=== PATIENT | female | born 1940 | race Caucasian/White ===

== ENCOUNTER → 2016-03-02 | Outpatient (CLI) | payer OTHER ==
[~2016-03-02] MED LIST: ALBU1AER9 INH; ALLO300T2 PO; ASCO500T16 PO; ASPI81TA21 PO; ATEN-173 PO; CALC600T PO; FURO20TA PO; LEVO175T23 PO; MULT-506 PO
--- NOTE | 2016-03-03 12:41 | MAMMOGRAPHY REPORT ---
BILATERAL DIGITAL SCREENING MAMMOGRAM WITH CAD: 03/02/2016 CLINICAL HISTORY: Routine screening. Patient has no complaints. TECHNIQUE: Bilateral CC and MLO views were obtained. Current study was also evaluated with a Comput er Aided Detection (CAD) system. COMPARISON: Comparison is made to exams dated: 02/27/2014 mammogram, 01/12/2013 mammogram, 05/24/2012 m ammogram, 11/19/2011 mammogram, 05/05/2011 mammogram, and 04/30/2011 mammogram - [facility] enter. BREAST COMPOSITION: The tissue of both breasts is almost entirely fatty. FINDINGS: There are scattered stable benign rim calcifications in the breasts. No suspicious mass, architectural distortion or cluster of suspicious microcalcifications is seen. IMPRESSION: ACR BI-RADS CATEGORY 1: NEGATIVE There is no mammographic evidence of malignancy. A 1 year screening mammogram is recommended. The p atient will receive written notification of the results. Approximately 10% of breast cancers are not detected with mammography. A negative mammographic repor t should not delay biopsy if a clinically suggestive mass is present. Xochilt Christianson M.D. ay/:03/02/2016 15:39:56 Records Administrator: Coty Medrano, [facility] letter sent: Normal 1/2 BI-RADS Code: ACR BI-RADS Category 1: Negative
== END | disposition home or self-care (01) ==
LOC: C.MAMM 14:43
PROVIDERS: ATTEND Family Medicine
DX: Z12.31 Encounter for screening mammogram for malignant neoplasm of breast (principal)

== ENCOUNTER → 2017-03-04 | Outpatient (CLI) | payer OTHER ==
--- NOTE | 2017-03-05 15:08 | MAMMOGRAPHY REPORT ---
BILATERAL DIGITAL SCREENING MAMMOGRAM TOMOSYNTHESIS WITH CAD: 03/04/2017 CLINICAL HISTORY: Routine screening. Patient has no complaints. TECHNIQUE: Breast tomosynthesis in addition to standard 2D mammography was performed. Current study was also evaluated with a Computer Aided Detection (CAD) system. COMPARISON: Comparison is made to exams dated: 03/02/2016 mammogram, 02/27/2014 mammogram, 04/30/2011 mamm ogram, 04/22/2010 mammogram, 03/18/2009 mammogram - [facility], and 07/26/2007. BREAST COMPOSITION: The tissue of both breasts is almost entirely fatty. FINDINGS: No suspicious masses, calcifications, or areas of architectural distortion are noted in ei ther breast. There has been no significant interval change compared to prior exams. Scattered bilater al benign-appearing calcifications are not significantly changed. IMPRESSION: ACR BI-RADS CATEGORY 2: BENIGN There is no mammographic evidence of malignancy. A 1 year screening mammogram is recommended. The pa tient will receive written notification of the results. Approximately 10% of breast cancers are not detected with mammography. A negative mammographic report should not delay biopsy if a clinically suggestive mass is present. Dina Guzman M.D. /:03/04/2017 15:23:56 Vulcan Crewmember: Vivian WELLER(Elisa)(M), [facility] letter sent: Normal 1/2 BI-RADS Code: ACR BI-RADS Category 2: Benign
== END | disposition home or self-care (01) ==
LOC: C.MAMM 14:53
PROVIDERS: ATTEND Family Medicine
DX: Z12.31 Encounter for screening mammogram for malignant neoplasm of breast (principal)

== ENCOUNTER 2023-04-10 19:23 | Observation (INO) ==
--- OUTSIDE RECORDS SUMMARY | 2023-04-10 19:35 | External Medical Summary | Summary of Care ---
Author Name Unknown Organization [facility] Address [address] [place] [address] Phone [phone] Care Team Providers Care Wildlife Ecology Professor Name Role Phone Wade Collado MD Primary Care Provider [phone] Reason for Visit * Reason Onset Date Comments Medication Problem 03/11/2023 Medication re fusal Encounter Details Date Type Department Care Team (Late st Contact Info) Description 03/11/2023 Refill [facility] [address] [place] [address] Wade Collado MD [address] [place] [address] Hypothyroidism Allergies Active Allergy Reactions Criticality Noted Date Comments Shine Inhibitors 09/22/2005 cough Penicillins 11/19/1998 rash Statins 11/20/2010 hives documented as of this encounter (statuses as of 03/12/2023) Medications Medication Sig Dispensed Refills Start Date End Date Status PRESERVISION AREDS 2 PO CAPS one cap daily 0 Active Atenolol 25 MG Oral Tablet (Tenormin) take 1 tablet by mouth daily 90 Tablet 3 03/12/2023 Active Furosemide 20 MG Oral Tablet (Lasix) take 1 tablet by mouth daily if needed for SWELLING fluid retention or WEIGHT GAIN 90 Tablet 3 03/12/2023 Active Levothyroxine Sodium 175 MCG Oral Tablet (Levoxyl)Indicat ions:Hypothyroid ism take 1 tablet by mouth daily AT LEAST 30 MINUTES BEFORE BREAKFAST OR OTHER MEDICATIONS 90 Tablet 3 03/12/2023 Active Potassium Chloride ER 10 MEQ Oral Capsule Extended Release take 1 capsule by mouth daily with EACH DOSE OF FUROSEMIDE 90 Capsule 3 03/12/2023 Active Atenolol 25 MG Oral Tablet (Tenormin) take 1 tablet by mouth daily 90 Tablet 3 12/20/2022 4 Discontinue d(Refill) Levothyroxine Sodium 175 MCG Oral Tablet (Levoxyl)Indicat ions:Hypothyroid ism take 1 tablet by mouth daily AT LEAST 30 MINUTES BEFORE BREAKFAST OR OTHER MEDICATIONS 90 Tablet 3 12/20/2022 4 Discontinue d(Refill) Potassium Chloride ER 10 MEQ Oral Capsule Extended Release take 1 capsule by mouth daily with EACH DOSE OF FUROSEMIDE 90 Capsule 3 01/06/2023 4 Discontinue d(Refill) Furosemide 20 MG Oral Tablet (Lasix) take 1 tablet by mouth daily if needed for SWELLING fluid retention or WEIGHT GAIN 90 Tablet 3 01/06/2023 4 Discontinue d(Refill) documented as of this encounter (statuses as of 03/12/2023) Active Problems Problem Noted Date Diagnosed Date Body mass index (BMI) of 50.0 to 59.9 in adult 0 11/02/2022 Overview: Per Obesity protocol Stage 3a chronic kidney disease 01/01/2020 Overview: Per CKD protocol HTN, GOAL BELOW 140/90 01/14/2009 Overview: Modified per HTN protocol #16. Hypothyroidism documented as of this encounter (statuses as of 03/12/2023) Resolved Problems Problem Noted Date Diagnosed Date Resolved Date Kidney disease, chronic, sta ge III (GFR 30-59 ml/min) 03/02/2016 01/04/2020 Overview: Per CKD protocol #1 Adenomatous colon polyp 07/25/201203/2018 Obesity, morbid (more than 1 00 lbs over ideal weight or BMI > 40) 05/21/2011 11/05/2022 Overview: Per Obesity protocol Obesity, morbid (more than 1 00 lbs over ideal weight or BMI > 40) 05/21/2009 05/21/2011 Overview: Per Obesity Taxonomy ICD-10 update of inactive term Gouty arthropathy 12/06/2008 02/23/2018 Overview: ICD-9 Code Update ICD-10 update of inactive term Benign neoplasm of colon 12/22/200703/2018 Overview: serrated adenomatous/repeat colonoscopy in 3 yrs ADVANCE DIRECTIVE INFORMATION 10/16/2004 02/23/2018 Overview: No, Advance Directive brochure given to patient at prior appointment. Dyslipidemia, goal to be determined 04/16/2004 01/25/2013 Gouty arthropathy 10/17/2002 12/06/2008 Overview: ICD-9 Code Update ICD-10 update of inactive term OBESITY, UNSPECIFIED 01/19/2001 010 Overview: Per Obesity Taxonomy HYPERTENSION NOS 01/14/2009 Overview: Modified per HTN protocol #16. Edema 02/23/2018 documented as of this encounter (statuses as of 03/12/2023) Immunizations Name Administration Dates Next Due COVID-19 mRNA, LNP-s, No Pre serve, 2-Dose Series ([employer]) 11/21/2020,04/18/2020,03/28/2020 Pneumococcal Conjugate Vacc, 13 Valent (Prevnar) 08/06/2015 Pneumococcal Polysaccharide PPV23 (Pneumovax) 03/18/2009 Seasonal Influenza, PF, 6 M & above, IM , (FluLaval or Fluzone) 02/24/2019,12/17/2017,04/01/2017 Seasonal Influenza, Quadriva lent Hd (Fluzone Hd) 11/20/2020 Seasonal Influenza, Quadriva lent, No Preserve, IM 02/11/2016,02/04/2015 Seasonal Influenza, Split, I IV3, With Preserve, Inj 01/29/2014,12/15/2012,12/31/2011,01/12,12/17/2009,12/04/2008,01/09/2008 ,01/04/2006 TD - Tetanus/Diptheria (ADULT) 04/01/2005 TDAP (age 10 and older)(Boostrix) 02/11/2016 Varicella Zoster Vaccine (Adult) 01/23/2013 documented as of this encounter Social History Tobacco Use Types Packs/Day Years Used Date Smoking Tobacco: Never Smokeless Tobacco: Never Alcohol Use Standard Drinks/Week Comments Yes 0 (1 standard drink = 0.6 oz pur e alcohol) occasionally wine PHQ-2 Answer Date Recorded PHQ Adult Total Score 0 10/22/2021 Hunger Vital Sign Answer Date Recorded Within the past 12 months, y ou worried that your food would run out before you got the money to buy more. Never true 10/23/19 22 Within the past 12 months, t he food you bought just didn't last and you didn't have money to get more. Never true 10/22/2021 Sex and Gender Information Value Date Recorded Sex Assigned at Not on file Gender Identity Not on file Sexual Orientation Not on file Job Start Date Occupation Industry Not on file Not on file Not on file documented as of this encounter Miscellaneous Notes * Telephone Encounter - Wade Collado MD - 03/12/2023 4:18 PM ESTSigned Prescriptions: Disp Refills Atenolol 25 MG Oral Tablet (Tenormin) 90 Tab*3 Sig: take 1 tablet by mouth dailyAuthorizing Provider: WADE COLLADO Furosemide 20 MG Oral Tablet (Lasix) 90 Tab*3 Sig: take 1 tablet by mouth daily if needed for SWELLING fluid retention or WEIGHT GAINAuthorizing Provider: WADE COLLADO Levothyroxine Sodium 175 MCG Oral Tablet (*90 Tab*3Sig: take 1 tablet by mouth daily AT LEAST 30 MINUTES BEFORE BREAKFAST OR OTHER MEDICATIONSAuthorizing Provider: WADE COLLADO Potassium Chloride ER 10 MEQ Oral Capsule *90 Cap*3 Sig: take 1 capsule by mouth daily with EACH DOSE OF FUROSEMIDEAuthorizing Provider: WADE COLLADO * Telephone Encounter - Adrianna Reyes LPN - 03/12/2023 1:42 PM EST [facility] closed so scripts were transferred to [facility]. Pt is going to use [facility] from now on Needs scripts sent to [facility] * Telephone Encounter - Wade Collado MD - 03/12/2023 12:54 PM EST Refused by pharmacy team. I am not sure why - but it looks like they were all filled this past November and December and enough was given for a year. Perhaps check with pt and/or pharmacy if a refill is really needed and send back to me if so. * Telephone Encounter - Aranza Razo OSA - 03/11/2023 3:48 PM EST Patient would like to speak to Dr. Garner , patient was told her medications were refused her medication because she needed to speak to the doctor first , patient is not sure why , please contact [phone] documented in this encounter Plan of Treatment Upcoming Encounters Date Type Department Care Team (Late st Contact Info) Description 10/22/2023 10:40 AM EDT Office Visit [facility] [address] [place] [address] Wade Collado MD [address] [place] [address] Health Maintenance Due Date Last Done Comments Zoster Vaccines (2 of 3) 03/20/2013 01/23/2013 DXA Scan 11/04/2019 11/03/2012, 06/22, 07/07/2005, Additional history exists Albumin/Creatinine Ratio 10/16/2022 022, 02/23/2018, 08/11/2007 Depression Screening 10/22/2022 10/22/2021 COVID-19 Vaccine ( season) 2022 11/21/2020, 04/18/2020, 03/28/2020 Influenza Vaccine (FLU shot) (#1) 2022 11/20/2020, 02/24/2019, 02/24/2019, Additional history exists GFR 04/22/2023 10/20/2022, 09/23, 07/09/2020, Additional history exists CKD HGB USE SMARTSET 51441 10/21/202310/20, 10/15/2021, 07/09/2020, Additional history exists CKD PHOS USE SMARTSET 40651 10/21/202309/23, 10/15/2021, 07/09/2020, Additional history exists TSH 10/21/2023 10/20/2022, 09/23, 07/09/2020, Additional history exists DTaP,Tdap,and Td Vaccines (2 - Td or Tdap) 02/10/2026 02/11/2016, 04/01/2005, 06/22/1994 Hepatitis B Completed 07/06/1985, 07/1985, 12/26/1984 Pneumococcal Vaccine: 65+ Years Completed 08/06/2015, 03/18/2009, 04/16/2004, Additional history exists GARDASIL-HPV IMMUNIZATION SERIES Aged Out No longer eligible based on patient's age to complete this topic MENINGOCOCCAL (MENACTRA/MENVEO) Aged Out No longer eligible based on patient's age to complete this topic documented as of this encounter Medical Devices Not on filedocumented as of this encounter Visit Diagnoses Diagnosis Hypothyroidism Unspecified hypothyroidism documented in this encounter Advance Directives Documents on File Type Date Recorded Patient Ui Ux Web Developer Expl anation Advance Directives and Living Will 06/09/2012 ADVANCE DIRECTIVE MEDICAL POWER OF LINE UP WORKER Advance Directives and Living Will 04/13/2008 LIVING WILL Care Teams Wildlife Ecology Professor Relationship Specialty Start Date End Date Wade Collado MD [address] [place] [address] PCP - General 04/20/02 documented as of this encounter
--- OUTSIDE RECORDS SUMMARY | 2023-04-10 19:35 | External Medical Summary | Summary of Care ---
Author Name Unknown Organization [facility] Address [address] [place] [address] Phone [phone] Care Team Providers Care Aerodynamics Professor Name Role Phone Juan Torres MD Primary Care Provider [phone]- [phone] Reason for Visit * Reason Comments eRx-Medication Refill Encounter Details Date Type Department Care Team (Late st Contact Info) Description 03/10/2023 Refill [facility] [address] [place] [address] Juan oTrres MD [address] [place] [address] Hypothyroidism Allergies Active Allergy Reactions Criticality Noted Date Comments Shine Inhibitors 09/22/2005 cough Penicillins 11/19/1998 rash Statins 11/20/2010 hives documented as of this encounter (statuses as of 03/11/2023) Medications Medication Sig Dispensed Refills Start Date End Date Status PRESERVISION AREDS 2 PO CAPS one cap daily 0 Active Atenolol 25 MG Oral Tablet (Tenormin) take 1 tablet by mouth daily 90 Tablet 3 12/20/2022 Active Levothyroxine Sodium 175 MCG Oral Tablet (Levoxyl)Indicatio ns:Hypothyroidism take 1 tablet by mouth daily AT LEAST 30 MINUTES BEFORE BREAKFAST OR OTHER MEDICATIONS 90 Tablet 3 12/20/2022 Active Potassium Chloride ER 10 MEQ Oral Capsule Extended Release take 1 capsule by mouth daily with EACH DOSE OF FUROSEMIDE 90 Capsule 3 01/06/2023 Active Furosemide 20 MG Oral Tablet (Lasix) take 1 tablet by mouth daily if needed for SWELLING fluid retention or WEIGHT GAIN 90 Tablet 3 01/06/2023 Active documented as of this encounter (statuses as of 03/11/2023) Active Problems Problem Noted Date Diagnosed Date Body mass index (BMI) of 50.0 to 59.9 in adult 0 11/02/2022 Overview: Per Obesity protocol Stage 3a chronic kidney disease 01/01/2020 Overview: Per CKD protocol HTN, GOAL BELOW 140/90 01/14/2009 Overview: Modified per HTN protocol #16. Hypothyroidism documented as of this encounter (statuses as of 03/11/2023) Resolved Problems Problem Noted Date Diagnosed Date [...] as of this encounter (statuses as of 03/11/2023) Immunizations Name Administration Dates Next Due COVID-19 mRNA, LNP-s, No Pre serve, 2-Dose Series (Pfizer) 11/21/2020,04/18/2020,03/28/2020 Pneumococcal Conjugate Vacc, 13 Valent (Prevnar) [...] encounter Miscellaneous Notes * Telephone Encounter - Milan Wilkes [facility] - 03/11/2023 3:17 PM EST Refused Prescriptions: Disp Refills Potassium Chloride ER 10 MEQ Oral Capsule *360 Ca*0 Sig: TAKE 1CAPSULE BY MOUTH DAILY WITH EACH DOSE OF FUROSEMIDERefused By: MILAN WILKES for Refusal: Patient Should Contact Provider First Furosemide 20 MG Oral Tablet (Lasix) 360 Ta*0 Sig: TAKE 1 TABLET BY MOUTH DAILY IF NEEDED FOR SWELLING FLUID RETENTION OR WEIGHT GAINRefused By: MILAN WILKES for Refusal: Patient Should Contact Provider First LevothyroxineSodium 175 MCG Oral Tablet (*270 Ta*0 Sig: TAKE 1 TABLET BY MOUTH DAILY AT LEAST 30 MINUTES BEFORE BREAKFAST OR OTHER MEDICATIONSRefused By: MILAN WILKES for Refusal: Patient Should Contact Provider First Atenolol 25 MG Oral Tablet (Tenormin) 270 Ta*0 Sig: TAKE 1 TABLET BY MOUTH DAILYRefused By: MILAN WILKES for Refusal: Patient Should Contact Provider First documented in this encounter Plan of Treatment Upcoming Encounters Date Type Department Care Team (Late st Contact Info) Description 10/22/2023 10:40 AM EDT Office Visit [facility] [address] [place] [address] Juan Torres MD [address] [address] Health Maintenance Due Date Last Done [...] Additional history exists CKD HGB USE SMARTSET 76814 10/21/202310/20, 10/15/2021, 07/09/2020, Additional history exists CKD PHOS USE SMARTSET 41096 10/21/202309/23, 10/15/2021, 07/09/2020, Additional history exists TSH [...] Documents on File Type Date Recorded Patient Home Office Claims Examiner Expl anation Advance Directives and Living Will 06/09/2012 ADVANCE DIRECTIVE MEDICAL POWER OF FIELD RETURN REPAIRER Advance Directives and Living Will 04/13/2008 LIVING WILL Care Teams Aerodynamics Professor Relationship Specialty Start Date End Date Juan Torres MD [address] [place] [address] PCP - General 04/20/02 documented as of this encounter
--- OUTSIDE RECORDS SUMMARY | 2023-04-10 19:35 | External Medical Summary | Summary of Care ---
Author Name Unknown Organization [facility] Address [address] [place] [address] Phone [phone] Care Team Providers Care Powder Coat Painter Name Role Phone Wade Collado MD Primary Care Provider +1- [phone] Reason for Visit * Reason Comments eRx-Medication Refill Encounter Details Date Type Department Care Team (Late st Contact Info) Description 01/05/2023 Refill [facility] [address] [place] [address] Wade Collado MD [address] [place] [address] Allergies Active Allergy Reactions Criticality Noted Date Comments Shine Inhibitors 09/22/2005 cough Penicillins 11/19/1998 rash Statins 11/20/2010 hives documented as of this encounter (statuses as of 01/06/2023) Medications Medication Sig Dispensed Refills Start Date End Date Status PRESERVISION AREDS 2 PO CAPS one cap daily 0 Active Atenolol 25 MG Oral Tablet (Tenormin) take 1 tablet by mouth daily 90 Tablet 3 12/20/2022 Active Levothyroxine Sodium 175 MCG Oral Tablet (Levoxyl)Indica tions:Hypothyro idism take 1 tablet by mouth daily AT [...] WEIGHT GAIN 90 Tablet 3 01/06/2023 Active Potassium Chloride ER 10 MEQ Oral Capsule Extended Release Take 1 capsule daily with each dose of furosemide 90 Capsule 3 11/18/2021 3 Discontinued Furosemide 20 MG Oral Tablet (Lasix) Take by mouth 1 Tablet daily as needed (swelling). for fluid accumulation or weight gain 90 Tablet 3 11/18/2021 3 Discontinued documented as of this encounter (statuses as of 01/06/2023) Active Problems Problem Noted Date Diagnosed Date Body mass index (BMI) of 50.0 to 59.9 in adult 0 11/02/2022 Overview: Per Obesity protocol Stage 3a chronic kidney disease 01/01/2020 Overview: Per CKD protocol HTN, GOAL BELOW 140/90 01/14/2009 Overview: Modified per HTN protocol #16. Hypothyroidism documented as of this encounter (statuses as of 01/06/2023) Resolved Problems Problem Noted Date Diagnosed Date [...] as of this encounter (statuses as of 01/06/2023) Immunizations Name Administration Dates Next Due COVID-19 mRNA, LNP-s, No Pre serve, 2-Dose Series (Be my eyes) 11/21/2020,04/18/2020,03/28/2020 Pneumococcal Conjugate Vacc, 13 Valent (Prevnar) 08/06/2015 Pneumococcal Polysaccharide PPV23 (Pneumovax) 03/18/2009 SEASONAL INFLUENZA, PF, 6 M & Above, IM , (FLULAVAL or FLUZONE) 02/24/2019,12/17/2017,04/01/2017 Seasonal Influenza, Quadriva lent Hd (Fluzone [...] encounter Miscellaneous Notes * Telephone Encounter - Ewa Gaspar [facility] - 01/06/2023 11:04 AM ESTSigned Prescriptions: Disp Refills Potassium Chloride ER 10 MEQ Oral Capsule *90 Cap*3 Sig: take 1 capsule by mouth daily with EACH DOSE OF FUROSEMIDEAuthorizing Provider: WADE COLLADOUser: EWA GASPAR Furosemide 20 MG Oral Tablet (Lasix) 90 Tab*3 Sig: take 1 tablet by mouth daily if needed for SWELLING fluid retention or WEIGHT GAINAuthorizing Provider: WADE COLLADO User: EWA GASPAR documented in this encounter Plan of Treatment Upcoming Encounters Date Type Department Care Team (Late st Contact Info) Description 10/22/2023 10:40 AM EDT Office Visit [facility] [address] [place] [address] Wade Collado MD [address] [facility] [place] [address] Health Maintenance Due Date Last Done [...] Additional history exists CKD HGB USE SMARTSET 76712 10/21/202310/20, 10/15/2021, 07/09/2020, Additional history exists CKD PHOS USE SMARTSET 29347 10/21/202309/23, 10/15/2021, 07/09/2020, Additional history exists TSH [...] Not on filedocumented as of this encounter Advance Directives Documents on File Type Date Recorded Patient Rack Maker Expl anation Advance Directives and Living Will 06/09/2012 ADVANCE DIRECTIVE MEDICAL POWER OF VEHICLE DELIVERY WORKER Advance Directives and Living Will 04/13/2008 LIVING WILL Care Teams Powder Coat Painter Relationship Specialty Start Date End Date Wade Collado MD [address] [facility] [place] [address] PCP - General 04/20/02 documented as of this encounter
--- OUTSIDE RECORDS SUMMARY | 2023-04-10 19:35 | External Medical Summary | Summary of Care ---
Author Name Unknown Organization [facility] Address [address] [place] [address] Phone [phone] Care Team Providers Care Merchandising Execution Associate Name Role Phone Wade Collado MD Primary Care Provider [phone]- [phone] Reason for Visit * Reason Comments eRx-Medication Refill Encounter Details Date Type Department Care Team (Late st Contact Info) Description 12/19/2022 Refill [facility] [address] [place] [address] Wade Collado MD [address] [place] [address] Hypothyroidism Allergies Active Allergy Reactions Criticality Noted Date Comments Shine Inhibitors 09/22/2005 cough Penicillins 11/19/1998 rash Statins 11/20/2010 hives documented as of this encounter (statuses as of 12/20/2022) Medications Medication Sig Dispensed Refills Start Date End Date Status PRESERVISION AREDS 2 PO CAPS one cap daily 0 Active Potassium Chloride ER 10 MEQ Oral Capsule Extended Release Take 1 capsule daily with each dose of furosemide 90 Capsule 3 11/18/2021 Active Furosemide 20 MG Oral Tablet (Lasix) Take by mouth 1 Tablet daily as needed (swelling). for fluid accumulation or weight gain 90 Tablet 3 11/18/2021 Active Atenolol 25 MG Oral Tablet (Tenormin) take 1 tablet by mouth daily 90 Tablet 3 12/20/2022 Active Levothyroxine Sodium 175 MCG Oral Tablet (Levoxyl)Indica tions:Hypothyro idism take 1 tablet by mouth daily AT LEAST 30 MINUTES BEFORE BREAKFAST OR OTHER MEDICATIONS 90 Tablet 3 12/20/2022 Active Atenolol 25 MG Oral Tablet (Tenormin) TAKE 1 TABLET BY MOUTH EVERY DAY 90 Tablet 3 01/01/2022 3 Discontinued Levothyroxine Sodium 175 MCG Oral Tablet (Levoxyl)Indica tions:Hypothyro idism TAKE 1 TABLET BY MOUTH EVERY DAY AT LEAST 30 MINUTES BEFORE BREAKFAST OR OTHER MEDICATION 90 Tablet 3 01/01/2022 3 Discontinued documented as of this encounter (statuses as of 12/20/2022) Active Problems Problem Noted Date Diagnosed Date Body mass index (BMI) of 50.0 to 59.9 in adult 0 11/02/2022 Overview: Per Obesity protocol Stage 3a chronic kidney disease 01/01/2020 Overview: Per CKD protocol HTN, GOAL BELOW 140/90 01/14/2009 Overview: Modified per HTN protocol #16. Hypothyroidism documented as of this encounter (statuses as of 12/20/2022) Resolved Problems Problem Noted Date Diagnosed Date [...] as of this encounter (statuses as of 12/20/2022) Immunizations Name Administration Dates Next Due COVID-19 [...] 0.6 oz pur e alcohol) occasionally wine Sex and Gender Information Value Date Recorded Sex Assigned at Not on file Gender Identity Not on file Sexual Orientation Not on file Job Start Date Occupation Industry Not on file Not on file Not on file documented as of this encounter Miscellaneous Notes * Telephone Encounter - Talya Ball RPh - 12/20/2022 11:31 AM EDTSigned Prescriptions: Disp Refills Atenolol 25 MG Oral Tablet (Tenormin) 90 Tab*3 Sig: take 1 tablet by mouth dailyAuthorizing Provider: WADE COLLADO User: TALYA BALL Levothyroxine Sodium 175 MCG Oral Tablet (*90 Tab*3 Sig: take 1 tablet by mouth daily AT LEAST 30 MINUTES BEFORE BREAKFAST OR OTHER MEDICATIONSAuthorizing Provider: WADE COLLADO User: TALYA BALL documented in this encounter Plan of Treatment Upcoming Encounters Date Type Department Care Team (Late st Contact Info) Description 10/22/2023 10:40 AM EDT Office Visit [facility] [address] [place] [id number] Wade Collado MD [address] [place] [address] Health Maintenance Due Date Last Done [...] Additional history exists CKD HGB USE SMARTSET 63660 10/21/202310/20, 10/15/2021, 07/09/2020, Additional history exists CKD PHOS USE SMARTSET 91177 10/21/202309/23, 10/15/2021, 07/09/2020, Additional history exists TSH [...] Documents on File Type Date Recorded 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
--- OUTSIDE RECORDS SUMMARY | 2023-04-10 19:36 | External Medical Summary ---
Author Name Unknown Address Unknown Organization [id number]:[facility] [address] [place] [id number] Laboratory Report Ordering Provider Test Date Status HEAVEN OLVERA 10/20/2022 12:08:53 Final Observation Date Value Abnormality Reference (Units ) Status Phosphate 10/20/2022 12:08:53 3.8 2.5-4.8 (m g/dL) Final Performing Location [facility] - [address] [place] [address]
--- OUTSIDE RECORDS SUMMARY | 2023-04-10 19:36 | External Medical Summary ---
Author Name Unknown Address Unknown Organization [id number]:[facility] [place] [address] [place] [id number] Laboratory Report Ordering Provider Test Date Status HEAVEN OVLERA 10/20/2022 12:08:53 Final Observation Date Value Abnormality Reference (Units ) Status Hemoglobin 10/20/2022 12:08:53 13.8 12.0-15.3 (g/dL) Final Performing Location [facility] - [address] [place] [id number]
--- OUTSIDE RECORDS SUMMARY | 2023-04-10 19:36 | External Medical Summary | Summary of Care ---
Author Name Unknown Organization [facility] Address [address] [place] [address] Phone [phone] Care Team Providers Care Ship Erector Name Role Phone Juan Torres MD Primary Care Provider [phone]- [phone] Reason for Visit * Reason Comments Outpatient Testing Encounter Details Date Type Department Care Team Description 10/20/2022 Laboratory [facility] [place] [address] [place] [address] [facility] [address] [place] [address] Stage 3a chronic kidney disease; Other specified hypothyroidism; HTN, goal below 140/90 Allergies Active Allergy Reactions Severity Noted Date Comments Shine Inhibitors 09/22/2005 cough Penicillins 11/19/1998 rash Statins 11/20/2010 hives documented as of this encounter (statuses as of 10/20/2022) Medications Medication Sig Dispensed Refills Start Date [...] MOUTH EVERY DAY 90 Tablet 3 01/01/2022 Active Levothyroxine Sodium 175 MCG Oral Tablet (Levoxyl)Indicatio ns:Hypothyroidism TAKE 1 TABLET BY MOUTH EVERY DAY AT LEAST 30 MINUTES BEFORE BREAKFAST OR OTHER MEDICATION 90 Tablet 3 01/01/2022 Active documented as of this encounter (statuses as of 10/20/2022) Active Problems Problem Noted Date Stage 3a chronic kidney disease 01/01/20 20 Overview: Per CKD protocol Obesity, morbid (more than 100 lbs over ideal weight or BMI > 40) 05/21/2011 HTN, GOAL BELOW 140/90 01/14/2009 Overview: Modified per HTN protocol #16. Hypothyroidism documented as of this encounter (statuses as of 10/20/2022) Resolved Problems Problem Noted Date Resolved Date Kidney disease, chronic, stage III (GFR 30-59 ml /min) 03/02/2016 01/04/2020 Overview: Per CKD protocol #1 Adenomatous colon polyp 07/25/2012 02/23/19 19 Obesity, morbid (more than 1 00 lbs over ideal weight or BMI > 40) 05/21/2009 05/21/2011 Overview: Per Obesity Taxonomy ICD-10 update of inactive term Gouty arthropathy 12/06/2008 02/23/2018 Overview: ICD-9 Code Update ICD-10 update of inactive term Benign neoplasm of colon 12/22/2007 019 Overview: serrated adenomatous/repeat colonoscopy in 3 yrs ADVANCE DIRECTIVE INFORMATION 10/16/2004 Overview: No, Advance Directive brochure given to patient at prior appointment. Dyslipidemia, goal to be determined 04/16/2004 01/25/2013 Gouty arthropathy 10/17/2002 12/06/2008 Overview: ICD-9 Code Update ICD-10 update of inactive term OBESITY, UNSPECIFIED 01/19/2001 05/21/2009 Overview: Per Obesity Taxonomy HYPERTENSION NOS 01/14/2009 Overview: Modified per HTN protocol #16. Edema 02/23/2018 documented as of this encounter (statuses as of 10/20/2022) Immunizations Name Administration Dates Next Due COVID-19 mRNA, LNP-s, No Pre serve, 2-Dose Series (Pfizer) 11/21/2020,04/18/2020,03/28/2020 Pneumococcal Conjugate Vacc, 13 Valent (Prevnar) 08/06/2015 Pneumococcal Polysaccharide PPV23 (Pneumovax) 03/18/2009 Seasonal Influenza, PF, 6 mo ns & Above, IM , (Flulaval) 02/24/2019,12/17/2017,04/01/2017 Seasonal Influenza, Quadriva lent Hd (Fluzone [...] 0.6 oz pur e alcohol) occasionally wine Food Insecurity Answer Date Recorded Within the past 12 months, y ou worried that your food would run out before you got money to buy more. Never true 10/22/2021 Within the past 12 months, t he food you bought just didn't last and you didn't have money to get more. Never true 10/22/2021 Sex Assigned at Date Recorded Not on file Job Start Date Occupation Industry Not on file Not on file Not on file documented as of this encounter Plan of Treatment Upcoming Encounters Date Type Specialty Care Team Description 10/22/2023 Office Visit Family Medicine Juan Torres MD [address] [place] [address] Pending Results Name Type Priority Associated Diagnoses Date /Time TSH WITH FREE T4 IF INDICATED Lab Routine Other specified hypothyroidism 10/20/2022 12:08 PM EDT COMPREHENSIVE METABOLIC PANEL Lab Routine HTN, goal below 140/90 Stage 3a chronic kidney disease 10/20/2022 12:08 PM EDT PTH Lab Routine Stage 3a chronic kidney disease 10/20/2022 12:08 PM EDT PHOSPHORUS Lab Routine Stage 3a chronic kidney disease 10/20/2022 12:08 PM EDT HGB Lab Routine Stage 3a chronic kidney disease 10/20/2022 12:08 PM EDT Health Maintenance Due Date Last Done Comments Zoster Vaccines (2 of 3) 03/20/2013 01/23/2013 DXA Scan 11/04/2019 11/03/2012, 06/22, 07/07/2005, Additional history exists COVID-19 Vaccine (4 - Pfizer risk series) 01/16/2021 11/21/2020, 04/18/2020, 03/28/2020 GFR 04/17/2022 10/15/2021, 06/22, 02/24/2019, Additional history exists CKD HGB USE SMARTSET 66285 10/15/202210/15, 07/09/2020, 02/24/2019, Additional history exists CKD PHOS USE SMARTSET 02983 10/15/202209/23, 07/09/2020, 02/24/2019, Additional history exists TSH 10/15/2022 10/15/2021, 06/22, 02/24/2019, Additional history exists Albumin/Creatinine Ratio 10/16/2022 022, 02/23/2018, 08/11/2007 Depression Screening, Annual for Pts 12 and Over 10/22/2022 10/22/2021 Influenza Vaccine (FLU shot) (#1) 2022 11/20/2020, 02/24/2019, 02/24/2019, Additional history exists DTaP,Tdap,and Td Vaccines (2 [...] as of this encounter Visit Diagnoses Diagnosis Stage 3a chronic kidney disease Other specified hypothyroidism HTN, goal below 140/90 Unspecified essential hypertension documented in this encounter Advance Directives Documents on File Type Date Recorded 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
--- OUTSIDE RECORDS SUMMARY | 2023-04-10 19:36 | External Medical Summary ---
Author Name Unknown Address Unknown Organization [id number]:[facility]ATORY [facility] [place] - [address] [facility] [address] [place] [address] Laboratory Report Ordering Provider Test Date Status HEAVEN OLVREA 10/20/2022 12:08:53 Final Observation Date Value Abnormality Reference (Units ) Status BUN 10/20/2022 12:08:53 19 6-20 (mg/dL) Final Creatinine 10/20/2022 12:08:53 1.0 0.5-1.0 (mg/dL) Final Glomerular filtration rate/1.73 sq M.predicted [Volume Rate/Area] in Serum, Plasma or Blood by Creatinine-based formula (CKD-EPI) 10/20/2022 12:08:53 61 >=60 (mL/min) Final eGFR is calculated based on the CKD-EPI 2020 equation SODIUM 10/20/2022 12:08:53 142 135-146 (m mol/L) Final Potassium 10/20/2022 12:08:53 4.2 3.5-5.1 (m mol/L) Final Cl 10/20/2022 12:08:53 105 98-107 (mm ol/L) Final CO2 10/20/2022 12:08:53 27 22-32 (mmo l/L) Final Anion gap 10/20/2022 12:08:53 10 7-15 (mmol /L) Final Glucose 10/20/2022 12:08:53 104 70-120 (mg /dL) Final Albumin 10/20/2022 12:08:53 4.0 3.8-5.0 (g /dL) Final AST (Aspartate aminotransferase) 10/20/2022 12:08:53 16 10-35 (U/L) Fin al Alk Phos 10/20/2022 12:08:53 72 35-130 (U/ L) Final Bilirubin, Total 10/20/2022 12:08:53 0.5 <=1 .2 (mg/dL) Final Calcium 10/20/2022 12:08:53 8.9 8.4-10.2 ( mg/dL) Final Protein 10/20/2022 12:08:53 5.7 Below low normal 6.0 -8.3 (g/dL) Final ALT (Alanine aminotransferase) 10/20/2022 12:08:53 13 10-35 (U/L) Jaime mishra Performing Location [facility]ORY [facility] [place] - [address] [facility] [id number]
--- OUTSIDE RECORDS SUMMARY | 2023-04-10 19:36 | External Medical Summary ---
Author Name Unknown Address Unknown Organization [id number]:[facility] [place] - [address] [place] [address] Laboratory Report Ordering Provider Test Date Status HEAVEN OLVERA 10/20/2022 12:08:53 Final Observation Date Value Abnormality Reference (Units ) Status Parathyrin.intact [Mass/volume] in Serum or Plasma 10/20/2022 12:08:53 75 Above high normal 15-65 (pg/mL) Final Performing Location [facility]ORY [facility] – [place] - [address] [place] [address]
--- OUTSIDE RECORDS SUMMARY | 2023-04-10 19:36 | External Medical Summary ---
Author Name Unknown Address Unknown Organization [id number]:LABORATORY [facility] [place] - [address] [place] [id number] Laboratory Report Ordering Provider Test Date Status HEAVEN OLVERA 10/20/2022 12:08:53 Final Observation Date Value Abnormality Reference (Units ) Status TSH 10/20/2022 12:08:53 1.25 0.27-4.20 (uIU/mL) Final Performing Location [facility] - [address] [place] [id number]
--- OUTSIDE RECORDS SUMMARY | 2023-04-10 19:36 | External Medical Summary | Summary of Care ---
Author Name Unknown Organization [facility] Address [address] [place] [address] Phone [phone] Care Team Providers Care [employer] Name Role Phone Juan Torres MD Primary Care Provider [phone] Reason for Visit * Reason Comments Routine Exam Encounter Details Date Type Department Care Team Description 10/20/2022 Office Visit [facility] [address] [place] [address] Juan Torres MD [address] [place] [address] HTN, GOAL BELOW 140/90*; Risk and functional assessment; Other specified hypothyroidism; Body mass index (BMI) of 50.0 to 59.9 in adult (HCC); Stage 3a chronic kidney disease Allergies Active Allergy Reactions Severity Noted Date Comments Shine Inhibitors 09/22/2005 cough Penicillins 11/19/1998 rash Statins 11/20/2010 hives documented as of this encounter (statuses as of 11/09/2022) Medications Medication Sig Dispensed Refills Start Date [...] as of this encounter (statuses as of 11/09/2022) Active Problems Problem Noted Date Body mass index (BMI) of 50.0 to 59.9 in adult 11/02/2022 Overview: Per Obesity protocol Stage 3a chronic kidney disease 01/01/20 20 Overview: Per CKD protocol HTN, GOAL BELOW 140/90 01/14/2009 Overview: Modified per HTN protocol #16. Hypothyroidism documented as of this encounter (statuses as of 11/09/2022) Resolved Problems Problem Noted Date Resolved Date [...] as of this encounter (statuses as of 11/09/2022) Immunizations Name Administration Dates Next Due COVID-19 [...] on file documented as of this encounter Last Filed Vital Signs Vital Sign Reading Time Taken Comments Blood Pressure 122/76 10/20/2022 11:17 AM EDT Pulse 72 10/20/2022 11:17 AM EDT Temperature 36.8 C (98.3 F) 10/20/2022 11:17 AM E DT Respiratory Rate 18 10/20/2022 11:17 AM EDT Oxygen Saturation 97% 10/20/2022 11:17 AM EDT Inhaled Oxygen Concentration - - Weight 134.3 kg (296 lb) 10/20/2022 11:17 AM EDT Height 162.6 cm (5' 4") 10/20/2022 11:17 AM EDT Body Mass Index 50.81 10/20/2022 11:17 AM EDT documented in this encounter Patient Instructions * Patient Instructions* Irma Farias LPN - 10/20/2022 11:24 AM EDT Patient Instructions - Fall Prevention (This education is for all patients over 65 regardless of symptoms) Remember to take your current medications as prescribed. In order to prevent falls, you are encouraged to: Exercise Utilize assistive/adaptive devices Avoid multifocal lenses when walking Avoid hazards in home Maintain a regular toileting schedule Any questions please contact our office. Preventing Falls in the Home (This education is for all patients over 65 regardless of symptoms) As you get older, falls are more likely. Thats because your reaction time slows. Your muscles and joints may also get stiffer, making them less flexible. Illness, medications, and vision changes can also affect your balance. A fall could leave you unable to live on your own. To make your home safer, follow these tips: Floors Put nonskid pads under area rugs Remove throw rugs Replace worn floor coverings Tack carpets firmly to each step on carpeted stairs. Put nonskid strips on the edges of uncarpeted stairs Keep floors and stairs free of clutter and cords Arrange furniture so there are clear pathways Clean up any spills right away Bathrooms Install grab bars in the tub or shower Apply nonskid strips or put a nonskid rubber mat in the tub or shower Sit on a bath chair to bathe Use bathmats with nonskid backing Lighting Keep a flashlight in each room Put a nightlight along the pathway between the bedroom and the bathroom [employer] Patient Education Copyright 2008 - 2010 [employer] except where otherwise noted Preventing Falls: Exercises to Improve Balance, Flexibility, Strength, and Staying Power (This education is for all patients over 65 regardless of symptoms) Certain types of exercises may help make you less likely to fall. Try the ones below. Or do other exercises that your healthcare provider suggests. Depending on your health, you may need to start slowly. Dont let that stop you. Even small amounts of exercise can help you. Be sure to talk to yourhealthcare provider before starting any exercise program. Improve Balance Many types of exercise can help improve balance. Angel chi and yoga are good examples. Heres another one to try. You can do it anytime and almost anywhere. Stand next to a counter or solid support. Push yourself up onto your tiptoes. Hold for 5 seconds. If you start to lose your balance, hold on to the counter. Rest and repeat 5 times. Work up to holding for 20 to 30 seconds, if you can. Increase Flexibility Being more flexible makes it easier for you to move around safely. Try exercises like the seated hamstring stretch. Sit in a chair and put one foot on a stool. Straighten your leg and reach with both hands down either side of your leg. Reach as far down your leg as you can. Hold for about 20 seconds. Go back to the starting position. Then repeat 5 times. Switch legs. Build Strength Resistance exercises help build strength. You can do them without equipment. Or you can use weights, elastic bands, or special machines. One such exercise is called the biceps curl. You can hold a 1 pound weight or even a can of soup. Do this exercise at least 3 times a week. Strive for everyday. Sit up straight in a chair. Keep your elbow close to your body and your wrist straight. Bend your arm, moving your hand up to your shoulder. Then slowly lower your arm. Repeat 5 times. Switch to the other arm. Build Your Staying Power Aerobic exercises make your heart and lungs stronger so you can keep moving longer. Walking and swimming are two of the best types of exercises you can do. Using a stationary bike is great, too. Find an aerobic exercise that you enjoy. Start slowly and build up. Even 5 minutes is helpful. Aimfor a goal of 30 minutes, at least 3 times a week. You dont have to do 30 minutes in one session. Break it up and walk a little throughout the day. More Helpful Tips Start easy. Slowly work up to doing more. Talk with your healthcare provider about the best exercises for you. Call senior centers or health clubs about exercise programs. If needed, have a family member watch you walk every so often to check your stability. Exercise with a friend. Choose an activity you both enjoy. Try exercises that you can do anytime, anywhere. Here are two examples. Have someone with you when you first try these: Practice walking by placing one foot right in front of the other. Stand up and sit down 10 times. Repeat this throughout the day. [employer] Patient Education Copyright 2009 - 2010 Zana except where otherwise noted. Preventing Falls: Moving Safely Using a Cane or Walker (This education is for all patients over 65 regardless of symptoms) Keep the cane away from your feet so you dont trip. A walking aid, such as a cane or walker, can help you stay more independent and avoid falls. Remember to keep your walking aid within easy reach when youre in a chair or in bed. And learn how to use it safely so you dont injure yourself. Using a Cane If you have a stronger side, hold the cane on that side. Get your balance. Move the cane and your weaker leg forward. Support your weight on both the cane and your weaker side. Step with your stronger leg. Start again from step 1. If youre using a folding walker, be sure you know how to lock it open. Check that its locked open before each use. Using a Walker Roll the walker (or lift it, if youre using one without wheels) forward about 12 inches. Step forward with your weaker leg first. Use the walker to help keep your balance. Bring your other foot forward to the center of the walker. Start again from step 1. Helpful Tips Check with your healthcare provider about the right walking aid to use. Ask about a walker with a seat attached. Check the tips of your cane or walker to make sure they have nonskid covers. Move slowly from room to room. Dont baeza. Sit down to get dressed. Use a pascual pack or backpack to keep your hands free. Get help for jobs that mean climbing, even on a stepstool. [employer] Patient Education Copyright 2008 - 2010 Zana except where otherwise noted. Urinary Incontinence Plan of Care Documentation: (This education is for all patients over 65 regardless of symptoms) Current medications reconciled. Patient encouraged to: Practice kegal exercises Provide education materials Use the restroom every 2 hours throughout the day Limit caffeine, alcohol, spicy foods and acidic foods Keep a bladder diary Limit fluid intake 3-4 hours before bed Lose weight Prevent constipation Take fluid pills at a time when you can get to the bathroom quickly Control sugar better if diabetic Limit fluid intake to 60 oz. per day Wear support stockings (TEDs)if you have edema Irma Farias LPN 10/20/2022 Kegel Exercises Kegel exercises dont require special clothing or equipment. Theyre easy to learn and simple to do. And if you do them right, no one can tell youre doing them, so they can be done almost anywhere. Your doctor, nurse, or physical therapist can answer any questions you have and help you get started. A Weak Pelvic Floor The pelvic floor muscles may weaken due to aging, and vaginal childbirth, injury, surgery, chronic cough, or lack of exercise. If the pelvic floor is weak, your bladder and other pelvic organs may sag out of place. The urethra may also open too easily and allow urine to leak out. Kegel exercises can help you strengthen your pelvic floor muscles so they can better support the pelvic organs and control urine flow. How Kegel Exercises Are Done Try each of the Kegel exercises described below. When youre doing them, try not to move your leg, buttock, or stomach muscles. While youre urinating, try to stop the flow of urine. Start and stop it as often as you can. Contract as if you were stopping your urine stream, but do it when youre not urinating. Tighten your rectum as if trying not to pass gas. Contract your anus, but dont move your buttocks. Helpful Hints Do your Kegels as often as you can. The more you do them, the faster youll feel the results. Pick an activity you do often as a reminder. For instance, do your Kegels every time you sit down. Tighten your pelvic floor before you sneeze, get up from a chair, cough, laugh, or lift. This protects your pelvic floor from injury and can help prevent urine leakage. Try to hold each Kegel for a slow count to five. You probably wont be able to hold them for thatlong at first, but keep practicing. It will get easier as your pelvic floor gets stronger. Eventually, special weights that you place in your vagina may be recommended to help make your Kegels even more effective. Zana Patient Education Copyright 2008 - 2010 Zana except where otherwise noted. Here are some helpful tips for your urinary incontinence: (This education is for all patients over 65 regardless of symptoms) Practice Kegel exercises Use the restroom every 2 hours throughout the day Limit caffeine, alcohol, spicy foods, and acidic foods Keep a bladder diary Limit fluid intake 3-4 hours before bed Lose weight Prevent constipation Take fluid pills at a time when can get to the bathroom quickly Control sugar better if diabetic Limit fluid intake to 60 oz. per day Any questions, please feel free to contact our office. documented in this encounter Progress Notes * Juan Torres MD - 11/09/2022 9:13 PM EDT Subjective: Emily Kilgore is a 82 year old female here today for Chief Complaint Patient presents with Routine Exam Pt presents for routine recheck. Tolerating current meds. Agrees to labs. Denies chest pain, shortness of breath, cough, nausea, vomiting, abd pain, dysuria, urinary frequency, nocturia, fever, melena, hematochezia, peripheral edema. 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 serrated adenomatous/repeat colonoscopy in 3 yrs Edema HTN, goal to be determined Hypothyroidism Osteoarthrosis, unspecified whether generalized or localized, other specified sites Past Surgical History: Procedure Laterality Date COLONOSCOPY 08/04/12 repeat 5 years COLONOSCOPY THRU STOMA, W/BIOPSY 12/22/07 serrated adenomatous/repeat in 3 yrs COLPOSCPY CERVIX W/BX AND EC Colposcopy,Bx Cervix/Endocerv Curr GENITAL SURGERY PROCEDURE NEC 1982 Genital Surg Proc, Female Unlisted uterine reconstruction INFORMATION 1982 twin loss at 24 weeks REMOVE TONSILS & ADENOIDS, UNDER 12 Review of patient's allergies indicates: Allergen Reactions Shine Inhibitors cough Penicillins rash Statins hives Current Outpatient Medications Medication Sig Dispense Refill PRESERVISION AREDS 2 PO CAPS one cap daily Potassium Chloride ER 10 MEQ Oral Capsule Extended Release Take 1 capsule daily with each dose of furosemide 90 Capsule 3 Furosemide 20 MG Oral Tablet (Lasix) Take by mouth 1 Tablet daily as needed (swelling). for fluid accumulation or weight gain 90 Tablet 3 Atenolol 25 MG Oral Tablet (Tenormin) TAKE 1 TABLET BY MOUTH EVERY DAY 90 Tablet 3 Levothyroxine Sodium 175 MCG Oral Tablet (Levoxyl) TAKE 1 TABLET BY MOUTH EVERY DAY AT LEAST 30 MINUTES BEFORE BREAKFAST OR OTHER MEDICATION 90 Tablet 3 No current facility-administered medications for this visit. Objective: BP 122/76 | Pulse 72 | Temp 36.8 C (98.3 F) (Infrared ) | Resp 18 | Ht 1.626 m (5' 4") | Wt 134.3 kg (296 lb) | SpO2 97% | BMI 50.81 kg/m | BSA 2.46 m GEN: NAD HEENT: Benign NECK: Supple with no LAD, TM, JVD CHEST: CTA B CV: RRR ABD: Soft, NT/ND, No HSM, NABS EXT: No c,c,e Assessment and Plan: HTN, GOAL BELOW 140/90 (Primary) Risk and functional assessment Other specified hypothyroidism Body mass index (BMI) of 50.0 to 59.9 in adult (HCC) Stage 3a chronic kidney disease -continue current meds. Update labs. -reviewed routine preventive med and screening. Follow Up: Return in about 1 year (around 10/21/2023) for cpe. | For: cpe 30 min with pt and chart review Juan Torres MD * Irma Farias LPN - 10/20/2022 11:24 AM EDT Urinary Incontinence Plan of Care Documentation: (This education is for all patients over 65 regardless of symptoms) Current medications reconciled. Patient encouraged to: Practice kegal exercises Provide education materials Use the restroom every 2 hours throughout the day Limit caffeine, alcohol, spicy foods and acidic foods Keep a bladder diary Limit fluid intake 3-4 hours before bed Lose weight Prevent constipation Take fluid pills at a time when you can get to the bathroom quickly Control sugar better if diabetic Limit fluid intake to 60 oz. per day Wear support stockings (TEDs)if you have edema Irma Farias LPN 10/20/2022 documented in this encounter Nursing Notes * Irma Farias LPN - 10/20/2022 11:18 AM EDT The patient has been properly identified by confirmation of name and date of . Chief Complaint Patient presents with Routine Exam CPE Complains of "aches and pains" documented in this encounter Plan of Treatment Upcoming Encounters Date Type Specialty Care Team Description 10/22/2023 Office Visit Family Medicine Juan Torres MD [address] [place] [address] Health Maintenance Due Date Last Done Comments Zoster Vaccines (2 of 3) 03/20/2013 01/23/2013 DXA Scan 11/04/2019 11/03/2012, 06/22, 07/07/2005, Additional history exists COVID-19 Vaccine (4 - Pfizer risk series) 01/16/2021 11/21/2020, 04/18/2020, 03/28/2020 Albumin/Creatinine Ratio 10/16/2022 022, 02/23/2018, 08/11/2007 Depression Screening 10/22/2022 10/22/2021 Influenza Vaccine (FLU shot) (#1) 2022 11/20/2020, 02/24/2019, 02/24/2019, Additional history exists GFR 04/22/2023 10/20/2022, 09/23, 07/09/2020, Additional history exists CKD HGB USE SMARTSET 78358 10/21/202310/20, 10/15/2021, 07/09/2020, Additional history exists CKD PHOS USE SMARTSET 11443 10/21/202309/23, 10/15/2021, 07/09/2020, Additional history exists TSH [...] as of this encounter Visit Diagnoses Diagnosis HTN, GOAL BELOW 140/90- Primary Unspecified essential hypertension Risk and functional assessment Screening for unspecified condition Other specified hypothyroidism Body mass index (BMI) of 50.0 to 59.9 in adult (HCC) Stage 3a chronic kidney disease documented in this encounter Advance Directives Documents on File Type Date Recorded Patient Chemist Water Purification Expl anation Advance Directives and Living Will 06/09/2012 ADVANCE DIRECTIVE MEDICAL POWER OF DIRECTOR OF EDUCATION AND TRAINING Advance Directives and Living Will 04/13/2008 LIVING WILL Care Teams [employer] Relationship Specialty Start Date End Date Juan Torres MD [address] [place] [address] PCP - General 04/20/02 documented as of this encounter
[2023-04-10 20:25] LABS: Basophils # (auto) 0.03 K/uL (0.00-0.20); Basophils % (auto) 0.3 %; Eosinophils % (auto) 2.2 %; Hematocrit (blood only) 44.5 % (37.0-47.0); Hemoglobin 14.6 g/dl (12.0-16.0); Immature Granulocytes # (auto) 0.03 K/uL (0.01-0.20); Immature Granulocytes % (auto) 0.3 %; Lymphocytes # (auto) 1.67 K/uL (1.20-3.40); Lymphocytes % (auto) 18.7 %; Mean Corpuscular Hemoglobin 30.7 pg (25.0-34.0); Mean Corpuscular Hgb Conc 32.8 g/dL (32.0-36.0); Mean Corpuscular Volume 93.7 fL (80.0-100.0); Mean Platelet Volume 10.6 fL (9.4-12.4); Monocytes # (auto) 0.82 K/uL (0.11-0.59); Monocytes % (auto) 9.2 %; Neutrophils # (auto) 6.19 K/uL (1.40-6.50); Neutrophils % (auto) 69.3 %; Platelet Count 254 K/uL (130-400); RDW Coefficient of Variation 13.7 % (11.5-14.5); RDW Standard Deviation 47.5 fL (36.4-46.3); Red Blood Count 4.75 M/uL (4.20-5.40); White Blood Count 8.94 K/ul (4.8-10.8)
[2023-04-10 20:30] LABS: Albumin Globulin Ratio 1.5 (0.9-2); Albumin Level 4.1 gm/dl (3.4-5.0); BUN Creatinine Ratio 19.8 (10-20); Bilirubin,Total 0.9 mg/dl (0.2-1.0); Calcium 9.5 mg/dl (8.6-10.3); Est GFR (African American) 64.7 ml/min; Est GFR (Non-African American) 55.9 ml/min; Globulin 2.8 gm/dl (2.5-4.0); Potassium 3.9 mmol/L (3.5-5.1); Total Protein 6.9 gm/dl (6.0-8.3)
--- NOTE | 2023-04-10 20:30 | Emergency Department Note ---
Impression & Plan Generalized weakness, Ambulatory dysfunction ED Provider Note HISTORY OF PRESENT ILLNESS: Patient is an 82-year-old female presenting with bilateral lower extremity weakness. Patient reportedly went up to go to the restroom at 1600 today and could not get off the commode. Was complaining of bilateral lower extremity weakness. She had to call 911. No reported recent fevers. Denies any abdominal pain, nausea or vomiting. Denies recent diarrhea. Denies any recent sick contact exposures. Denies any dysuria or hematuria. Denies any chest pain or shortness of breath. Denies any headache or changes in vision. Patient lives at home alone. No reported recent falls or back injury. Denies any anticoagulation use. ROS: as above PHYSICAL EXAM: Constitutional: Patient appears in no acute distress. HENT: Head: Normocephalic and atraumatic. Eyes: EOMI, PERRL Mouth/Throat: Mucous membranes moist. Neck: Trachea midline. Neck supple. Cardiovascular: RRR, No murmurs, rubs or gallops. Intact distal pulses. Pulmonary/Chest: No respiratory distress. Breath sounds clear and equal bilaterally. No wheezes or rales. Abdominal: Abdomen soft, no tenderness, rebound or guarding. Musculoskeletal: No edema, tenderness or deformity noted. Skin: Warm and dry. No rash, erythema, pallor or cyanosis Psychiatric: Appropriate mood and affect for situation. Neurological: Alert and keenly responsive. CN II-XII grossly intact, moving all extremities equally and fully. Patient is able to straight leg raise bilaterally MDM: - Vitals signs stable - History obtained via patient. Patient presents with bilateral lower extremity weakness. Patient reports she went up to use the restroom at 1600 today and when she could not get herself up off of the commode. Reports bilateral lower extremity weakness. Denies any fevers. Denies recent falls or back injury. Denies any anticoagulation use. Denies any dysuria or hematuria. Denies any chest pain, shortness of breath or lightheadedness. - Chronic conditions affecting care: None - Differential diagnoses include, but are not limited to: CVA; UTI; pneumonia; electrolyte abnormality; dehydration - Order placed for continuous cardiac monitoring. At this time, monitor showed rate of 65 bpm with normal sinus rhythm, per my interpretation. - External medical records reviewed. EMS run sheet was reviewed. Patient vitally stable and route. No medications were given prehospital. - EKG interpreted by myself showed normal sinus rhythm. Rate 68 bpm. QT 422. No acute ischemic changes. - Laboratory workup interpreted by myself showed normal WBC; stable electrolytes; normal troponin; normal TSH - Respiratory viral panel negative - CT head wo contrast negative for acute intracranial pathology. - CXR negative for pneumonia, per my interpretation. - Patient's symptom onset around 1600, however patient has no focal neurological deficits on examination. NIH stroke scale 0. CT head without contrast negative for any acute pathology. Think symptoms are less likely to be stroke related. She is not a TNK candidate. - Discussed results with patient and her brother. They expressed concern about patient's generalized weakness and concern that she lives home alone. She is interested in rehab placement. - Discussion was had with healthcare or medical about patient's case and need for admission - Hospitalist consulted for admission - Patient admitted to [facility] hospitalist service for further evaluation and management. ASSESSMENT AND PLAN: Diagnosis: Generalized weakness; ambulatory dysfunction Plan: Admit Past Med/Surg History Social History Smoking Status: Never smoker Preferred Language: Thai Feels Safe at Home: Yes Allergies Allergies Allergy/AdvReac Type Severity Reaction Status Date / Time ROLAND Inhibitors Allergy Unknown UNKNOWN Verified 08/17/20 14:32 Penicillins Allergy Unknown UNKNOWN Verified 08/17/20 14:32 Agyucaz-SGX-KwS Reductase Allergy Unknown UNKNOWN Verified 08/17/20 14:32 Inhibitor [Hbwtgkm-Syu-Ehx Reductase Inhibitor] Home Meds Home Medications Medication Instructions Recorded Confirmed levothyroxine 175 mcg tablet 175 mcg PO DAILYBB 08/17/20 08/17/20 (Synthroid) naproxen sodium 220 mg tablet 220 mg PO BID PRN Pain 08/17/20 08/17/20 (Aleve) Results & Data (ED) Vital Signs Vital Signs - 24 hr 04/10/23 19:23 04/10/23 20:00 04/10/23 20:20 Temperature 37 C Temperature Source Oral Pulse Rate 68 65 66 Pulse Rate from SpO2 Sensor Pulse Rhythm Regular Pulse Strength Normal Respiratory Rate 20 17 Respiratory Effort / Characteristics Non-Labored Spontaneous Respiratory Depth Normal Blood Pressure 110/86 Blood Pressure Mean 94 Pulse Oximetry 97 97 Oxygen Delivery Method Room Air Room Air Sepsis Recent Fever Within 48 Hours No Sepsis New/Unexplained Change in Mental Status N/A Sepsis Action Taken by Nursing No Action Required 04/10/23 20:30 04/10/23 20:30 04/10/23 20:40 Temperature Temperature Source Pulse Rate 68 64 Pulse Rate from SpO2 Sensor 64 63 Pulse Rhythm Pulse Strength Respiratory Rate 14 14 Respiratory Effort / Characteristics Respiratory Depth Blood Pressure 154/102 H Blood Pressure Mean 114 Pulse Oximetry 97 98 Oxygen Delivery Method Room Air Room Air Sepsis Recent Fever Within 48 Hours Sepsis New/Unexplained Change in Mental Status Sepsis Action Taken by Nursing 04/10/23 20:41 04/10/23 20:42 Temperature Temperature Source Pulse Rate 65 Pulse Rate from SpO2 Sensor Pulse Rhythm Pulse Strength Respiratory Rate 20 Respiratory Effort / Characteristics Respiratory Depth Blood Pressure Blood Pressure Mean Pulse Oximetry 97 97 Oxygen Delivery Method Room Air Room Air Sepsis Recent Fever Within 48 Hours Sepsis New/Unexplained Change in Mental Status Sepsis Action Taken by Nursing Laboratory Data 04/10/23 19:32 04/10/23 19:32 Lab Results 04/10/23 04/10/23 Range/Units 19:32 20:41 WBC 8.94 (4.8-10.8) K/ul RBC 4.75 (4.20-5.40) M/uL Hgb 14.6 (12.0-16.0) g/dl Hct 44.5 (37.0-47.0) % MCV 93.7 (80.0-100.0) fL MCH 30.7 (25.0-34.0) pg MCHC 32.8 (32.0-36.0) g/dL RDW Std Deviation 47.5 H (36.4-46.3) fL RDW Coeff of Shauna 13.7 (11.5-14.5) % Plt Count 254 (130-400) K/uL MPV 10.6 (9.4-12.4) fL Immature Gran % (Auto) 0.3 % Neut % (Auto) 69.3 % Lymph % (Auto) 18.7 % Willacy % (Auto) 9.2 % Eos % (Auto) 2.2 % Baso % (Auto) 0.3 % Neut # (Auto) 6.19 (1.40-6.50) K/uL Lymph # (Auto) 1.67 (1.20-3.40) K/uL Willacy # (Auto) 0.82 H (0.11-0.59) K/uL Eos # (Auto) 0.20 (0.00-0.50) K/uL Baso # (Auto) 0.03 (0.00-0.20) K/uL Immature Gran # (Auto) 0.03 (0.01-0.20) K/uL Sodium 140 (136-145) mmol/L Potassium 3.9 (3.5-5.1) mmol/L Chloride 105 (98-107) mmol/L Carbon Dioxide 27 (21-32) mmol/L Anion Gap 8 (3-11) BUN 19 (6-23) mg/dl Creatinine 0.96 (0.6-1.2) mg/dl Est Cr Clr Drug Dosing 64.0 ml/min Est GFR ( Amer) 64.7 ml/min Est GFR (Non-Af Amer) 55.9 ml/min BUN/Creatinine Ratio 19.8 (10-20) Glucose 95 (70-99(Fasting)) mg/dl Lactate 0.8 (0.4-2.0) mmol/L Calcium 9.5 (8.6-10.3) mg/dl Magnesium 2.0 (1.7-2.4) mg/dl Total Bilirubin 0.9 (0.2-1.0) mg/dl AST 15 (13-39) U/L ALT 11 (7-52) U/L Alkaline Phosphatase 75 (34-104) U/L Troponin I High Sens 8.2 (0-14) pg/ml Total Protein 6.9 (6.0-8.3) gm/dl Albumin 4.1 (3.4-5.0) gm/dl Globulin 2.8 (2.5-4.0) gm/dl Albumin/Globulin Ratio 1.5 (0.9-2) TSH 2.040 (0.300-4.500) uIu/ml Adenovirus (PCR) Not Detected (NotDetected) B. pertussis DNA (PCR) Not Detected (NotDetected) B.parapertussis DNA PCR Not Detected (NotDetected) C. pneumoniae DNA (PCR) Not Detected (NotDetected) Coronavirus OC43 (PCR) Not Detected (NotDetected) Coronavirus HKU1 (PCR) Not Detected (NotDetected) Coronavirus 229E (PCR) Not Detected (NotDetected) SARS-CoV-2 (PCR) Not Detected (NotDetected) Coronavirus NL63 (PCR) Not Detected (NotDetected) Human Metapneumovir PCR Not Detected (NotDetected) Influenza Type A (PCR) Not Detected (NotDetected) Influenza Type B (PCR) Not Detected (NotDetected) M. pneumoniae (PCR) Not Detected (NotDetected) Parainfluenza 1 (PCR) Not Detected (NotDetected) Parainfluenza 2 (PCR) Not Detected (NotDetected) Parainfluenza 3 (PCR) Not Detected (NotDetected) Parainfluenza 4 (PCR) Not Detected (NotDetected) RSV (PCR) Not Detected (NotDetected) Entero/Rhino (PCR) Not Detected (NotDetected) Imaging Data Radiologist's Impression: Head CT 04/10/23 20:00 Exam(s): CT HEAD Without Contrast EXAM: CT Head Without Intravenous Contrast CLINICAL HISTORY: Lower extremity weakness. TECHNIQUE: Axial computed tomography images of the head/brain without intravenous contrast. CTDI is 35.92 mGy and DLP is 624.41 mGy-cm. Automated exposure control was utilized for the study. A dose lowering technique was utilized adhering to the principles of ALARA. COMPARISON: No relevant prior studies available. FINDINGS: Brain: No intracranial hemorrhage, mass-effect or midline shift. No abnormal extra axial fluid. No evidence of acute infarct. Mild periventricular white matter hypodensities are most consistent with chronic microangiopathy. Ventricles: Unremarkable. No ventriculomegaly. Bones/joints: Unremarkable. No acute fracture. Soft tissues: Unremarkable. Sinuses: Unremarkable as visualized. No acute sinusitis. Mastoid air cells: Unremarkable as visualized. No mastoid effusion. IMPRESSION: No acute intracranial finding. Electronically signed by: Josselyn Browne MD 04/10/23 21:10 PM Discharge Plan Visit Data Chief Complaint: Weakness Stated Complaint: LEG WEAKNESS ED Provider: Deanna Concepcion Discharge Problem: Generalized weakness, Ambulatory dysfunction Forms Stand Alone Forms: [facility] / [facility] Prescriptions Prescriptions: No Action levothyroxine [Synthroid] 175 mcg tablet 175 mcg PO DAILYBB naproxen sodium [Aleve] 220 mg Tablet 220 mg PO BID PRN (Reason: Pain) Referrals Referrals: Juan Torres MD [Primary Care Provider] -
[2023-04-10 20:34] LABS: Adenovirus PCR Not Detected (NotDetected); Bordetella parapertussis PCR Not Detected (NotDetected); Bordetella pertussis PCR Not Detected (NotDetected); Chlamydia pneumoniae PCR Not Detected (NotDetected); Coronavirus 229E PCR Not Detected (NotDetected); Coronavirus CoV-2 (COVID19)PCR Not Detected (NotDetected); Coronavirus HKU1 PCR Not Detected (NotDetected); Coronavirus NL63 PCR Not Detected (NotDetected); Coronavirus OC43PCR Not Detected (NotDetected); Human Metapneumovirus PCR Not Detected (NotDetected); Influenza A PCR Not Detected (NotDetected); Influenza B PCR Not Detected (NotDetected); Mycoplasma pneumoniae PCR Not Detected (NotDetected); Parainfluenza Virus 1 PCR Not Detected (NotDetected); Parainfluenza Virus 2 PCR Not Detected (NotDetected); Parainfluenza Virus 3 PCR Not Detected (NotDetected); Parainfluenza Virus 4 PCR Not Detected (NotDetected); Respiratory Syncytial VirusPCR Not Detected (NotDetected); Rhinovirus/Enterovirus PCR Not Detected (NotDetected)
[2023-04-10 20:36] LABS: Troponin I High Sensitivity 8.2 pg/ml (0-14)
[2023-04-10 20:45] LABS: Thyroid Stimulating Hormone 2.04 uIu/ml (0.300-4.500)
--- NOTE | 2023-04-10 21:11 | CT Scan Report ---
Exam(s): CT HEAD Without Contrast EXAM: CT Head Without Intravenous Contrast CLINICAL HISTORY: Lower extremity weakness. TECHNIQUE: Axial computed tomography images of the head/brain without intravenous contrast. CTDI is 35.92 mGy and DLP is 624.41 mGy-cm. Automated exposure control was utilized for the study. A dose lowering technique was utilized adhering to the principles of ALARA. COMPARISON: No relevant prior studies available. FINDINGS: Brain: No intracranial hemorrhage, mass-effect or midline shift. No abnormal extra axial fluid. No evidence of acute infarct. Mild periventricular white matter hypodensities are most consistent with chronic microangiopathy. Ventricles: Unremarkable. No ventriculomegaly. Bones/joints: Unremarkable. No acute fracture. Soft tissues: Unremarkable. Sinuses: Unremarkable as visualized. No acute sinusitis. Mastoid air cells: Unremarkable as visualized. No mastoid effusion. IMPRESSION: No acute intracranial finding. Electronically signed by: Josselyn Browne MD 04/10/23 21:10 PM
--- NOTE | 2023-04-10 23:09 | History & Physical Report ---
Date of Service April 10, 2023 Assessment & Plan (1) Weakness: Plan: 82-year-old female with past medical history significant for hypothyroidism, hypertension, morbid obesity, chronic kidney disease stage III presents with weakness and ambulatory dysfunction. Patient states that today she could not get up from the commode when she called her emergency alert and was brought in here. She usually ambulates with a cane at home. She lives alone. Denies any fevers. No abdominal pain. Normal bowel and bladder movements. No chest pain or shortness of breath. No cough. No difficulty swallowing. No headache. No earache or runny nose or sore throat. Currently resting comfortably and hemodynamically stable. Weakness of lower extremity Ambulatory dysfunction CT head is okay Labs okay Will follow urinalysis PT OT in a.m. Hypothyroidism On Synthyroid TSH is okay Lower extremity edema States same as before On Lasix as needed Hypertension On atenolol CKD stage III Creatinine 0.9 Will follow labs DVT prophylaxis Lovenox Disposition Observe on medical floor Full code History of Present Illness Chief Complaint: Weakness Primary Care Provider: Juan Torres MD 82-year-old female with past medical history significant for hypothyroidism, hypertension, morbid obesity, chronic kidney disease stage III presents with weakness and ambulatory dysfunction. Patient states that today she could not get up from the commode when she called her emergency alert and was brought in here. She usually ambulates with a cane at home. She lives alone. Denies any fevers. No abdominal pain. Normal bowel and bladder movements. No chest pain or shortness of breath. No cough. No difficulty swallowing. No headache. No earache or runny nose or sore throat. Currently resting comfortably and hemodynamically stable. Past medical history. As mentioned above Past surgical history. Colonoscopy. Colposcopy. 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 Tonsillectomy adenoidectomy. Social history. lives alone. No smoking. Alcohol occasional wine. No drug use. Family history. Father had prostate cancer. Brother had cardiac stent. Aunt had breast cancer. Allergies Allergy/AdvReac Type Severity Reaction Status Date / Time ROLAND Inhibitors Allergy Unknown UNKNOWN Verified 04/10/23 23:06 Penicillins Allergy Unknown UNKNOWN Verified 04/10/23 23:06 Vikfqwd-WIG-MrU Reductase Allergy Unknown UNKNOWN Verified 04/10/23 23:06 Inhibitor [Aitafwi-Vux-Zax Reductase Inhibitor] Home Medications Medication Instructions Recorded Confirmed Type atenolol 25 mg tablet 25 mg PO DAILY 04/10/23 04/10/23 History furosemide 20 mg tablet 20 mg PO DAILY PRN .EDEMA/WT GAIN 04/10/23 04/10/23 History furosemide 20 mg tablet 20 mg PO DAILY PRN Edema 04/10/23 04/10/23 History levothyroxine 175 mcg tablet 175 mcg PO DAILY 04/10/23 04/10/23 History levothyroxine 175 mcg tablet 175 mcg PO QAM 04/10/23 04/10/23 History naproxen sodium 220 mg tablet 220 mg PO BID PRN Pain 04/10/23 04/10/23 History (Aleve) potassium chloride 10 mEq 10 meq PO DAILY PRN WHEN TAKES 04/10/23 04/10/23 History capsule,extended release LASIX potassium chloride 10 mEq 10 meq PO UD 04/10/23 04/10/23 History capsule,extended release vit C 250 mg-vit E 90 mg-zinc 40 1 tab PO AMHS 04/10/23 04/10/23 History mg-copper 1 [id number] capsule (PreserVision AREDS-2) Past Med/Surg History Social History Smoking Status: Never smoker Second Hand Exposure: No; Do You Dip or Chew Tobacco: No; Hx Alcohol Use: Yes Alcohol type: wine Hx Substance Use: No Preferred Language: Jamaican Communication Ability: Effective Gas Analyst Required: No Beliefs That Will Affect Care: None Current Living Situation: Alone Other Information That Helps Us Care for You: No Feels Safe at Home: Yes Safety Concerns: Feels Safe At This Time Assistive Devices: Cane, Glasses, Hearing Aid - Bilateral and Walker Review of Systems Review of Systems: All systems reviewed & are unremarkable except as noted in HPI & below Physical Exam Physical Exam: General- Not in distress Head- atraumatic Eyes- PERRL. ENT- oropharynx clear Neck- supple, no JVD. Lungs- clear to auscultation no wheezing or crackles. Heart- regular rhythm; no murmur, no gallop. Abdomen- normal bowel sounds, soft, nontender, no distension Extremities- b/l lower extremity edema present. no erythema seen. Neuro- alert, oriented x 3; PERRL,; no facial palsy; no dysarthria; motor 3/5 lower extremity 5/5 upper extremity. sensations intact lower extremity. can lift and hold lower extremity with some difficulty. Skin- warm & dry Results & Data Results & Data Vital Signs (Past 12 Hours) Vital Signs Temp Pulse Resp BP Pulse Ox O2 Del Method 04/10/23 22:53 74 13 132/59 L 94 Room Air 04/10/23 20:42 65 20 97 Room Air 04/10/23 20:41 97 Room Air 04/10/23 20:40 64 14 98 Room Air 04/10/23 20:30 68 14 97 Room Air 04/10/23 20:30 154/102 H 04/10/23 20:20 66 17 97 Room Air 04/10/23 20:00 65 04/10/23 19:23 37 C 68 20 110/86 97 Room Air Diagnostic Findings Laboratory Results WBC 8.94 K/ul (4.8-10.8) 04/10/23 19:32 RBC 4.75 M/uL (4.20-5.40) 04/10/23 19:32 Hgb 14.6 g/dl (12.0-16.0) 04/10/23 19:32 Hct 44.5 % (37.0-47.0) 04/10/23 19:32 MCV 93.7 fL (80.0-100.0) 04/10/23 19:32 MCH 30.7 pg (25.0-34.0) 04/10/23 19:32 MCHC 32.8 g/dL (32.0-36.0) 04/10/23 19:32 RDW Std Deviation 47.5 fL (36.4-46.3) H 04/10/23 19:32 RDW Coeff of Shauna 13.7 % (11.5-14.5) 04/10/23 19:32 Plt Count 254 K/uL (130-400) 04/10/23 19:32 MPV 10.6 fL (9.4-12.4) 04/10/23 19:32 Immature Gran % (Auto) 0.3 % 04/10/23 19:32 Neut % (Auto) 69.3 % 04/10/23 19:32 Lymph % (Auto) 18.7 % 04/10/23 19:32 Morrow % (Auto) 9.2 % 04/10/23 19:32 Eos % (Auto) 2.2 % 04/10/23 19:32 Baso % (Auto) 0.3 % 04/10/23 19:32 Neut # (Auto) 6.19 K/uL (1.40-6.50) 04/10/23 19:32 Lymph # (Auto) 1.67 K/uL (1.20-3.40) 04/10/23 19:32 Morrow # (Auto) 0.82 K/uL (0.11-0.59) H 04/10/23 19:32 Eos # (Auto) 0.20 K/uL (0.00-0.50) 04/10/23 19:32 Baso # (Auto) 0.03 K/uL (0.00-0.20) 04/10/23 19:32 Immature Gran # (Auto) 0.03 K/uL (0.01-0.20) 04/10/23 19:32 Sodium 140 mmol/L (136-145) 04/10/23 19:32 Potassium 3.9 mmol/L (3.5-5.1) 04/10/23 19:32 Chloride 105 mmol/L (98-107) 04/10/23 19:32 Carbon Dioxide 27 mmol/L (21-32) 04/10/23 19:32 Anion Gap 8 (3-11) 04/10/23 19:32 BUN 19 mg/dl (6-23) 04/10/23 19:32 Creatinine 0.96 mg/dl (0.6-1.2) 04/10/23 19:32 Est Cr Clr Drug Dosing 64.0 ml/min 04/10/23 19:32 Est GFR ( Amer) 64.7 ml/min 04/10/23 19:32 Est GFR (Non-Af Amer) 55.9 ml/min 04/10/23 19:32 BUN/Creatinine Ratio 19.8 (10-20) 04/10/23 19:32 Glucose 95 mg/dl (70-99(Fasting)) 04/10/23 19:32 Lactate 0.8 mmol/L (0.4-2.0) 04/10/23 20:41 Calcium 9.5 mg/dl (8.6-10.3) 04/10/23 19:32 Magnesium 2.0 mg/dl (1.7-2.4) 04/10/23 19:32 Total Bilirubin 0.9 mg/dl (0.2-1.0) 04/10/23 19:32 AST 15 U/L (13-39) 04/10/23 19:32 ALT 11 U/L (7-52) 04/10/23 19:32 Alkaline Phosphatase 75 U/L (34-104) 04/10/23 19:32 Troponin I High Sens 8.2 pg/ml (0-14) 04/10/23 19: Total Protein 6.9 gm/dl (6.0-8.3) 04/10/23: Albumin 4.1 gm/dl (3.4-5.0) 04/10/23: Globulin 2.8 gm/dl (2.5-4.0) 04/10/23:32 Albumin/Globulin Ratio 1.5 (0.9-2) 04/10/23: TSH 2.040 uIu/ml (0.300-4.500) 04/10/23 19:32 Adenovirus (PCR) Not Detected (NotDetected) 04/10/23 19:32 B. pertussis DNA (PCR) Not Detected (NotDetected) 04/10/23 19:32 B.parapertussis DNA PCR Not Detected (NotDetected) 04/10/23 19:32 C. pneumoniae DNA (PCR) Not Detected (NotDetected) 04/10/23 19:32 Coronavirus OC43 (PCR) Not Detected (NotDetected) 04/10/23 19:32 Coronavirus HKU1 (PCR) Not Detected (NotDetected) 04/10/23 19:32 Coronavirus 229E (PCR) Not Detected (NotDetected) 04/10/23 19:32 SARS-CoV-2 (PCR) Not Detected (NotDetected) 04/10/23 19:32 Coronavirus NL63 (PCR) Not Detected (NotDetected) 04/10/23 19:32 Human Metapneumovir PCR Not Detected (NotDetected) 04/10/23 19:32 Influenza Type A (PCR) Not Detected (NotDetected) 04/10/23 19:32 Influenza Type B (PCR) Not Detected (NotDetected) 04/10/23 19:32 M. pneumoniae (PCR) Not Detected (NotDetected) 04/10/23 19:32 Parainfluenza 1 (PCR) Not Detected (NotDetected) 04/10/23 19:32 Parainfluenza 2 (PCR) Not Detected (NotDetected) 04/10/23 19:32 Parainfluenza 3 (PCR) Not Detected (NotDetected) 04/10/23 19:32 Parainfluenza 4 (PCR) Not Detected (NotDetected) 04/10/23 19:32 RSV (PCR) Not Detected (NotDetected) 04/10/23 19:32 Entero/Rhino (PCR) Not Detected (NotDetected) 04/10/23 19:[address] 04/10/23 20:00 Exam(s): CT HEAD Without Contrast EXAM: CT Head Without Intravenous Contrast CLINICAL HISTORY: Lower extremity weakness. TECHNIQUE: Axial computed tomography images of the head/brain without intravenous contrast. CTDI is 35.92 mGy and DLP is 624.41 mGy-cm. Automated exposure control was utilized for the study. A dose lowering technique was utilized adhering to the principles of ALARA. COMPARISON: No relevant prior studies available. FINDINGS: Brain: No intracranial hemorrhage, mass-effect or midline shift. No abnormal extra axial fluid. No evidence of acute infarct. Mild periventricular white matter hypodensities are most consistent with chronic microangiopathy. Ventricles: Unremarkable. No ventriculomegaly. Bones/joints: Unremarkable. No acute fracture. Soft tissues: Unremarkable. Sinuses: Unremarkable as visualized. No acute sinusitis. Mastoid air cells: Unremarkable as visualized. No mastoid effusion. IMPRESSION: No acute intracranial finding. Electronically signed by: Josselyn Browne MD 04/10/23 21:10 PM ECG Additional Comments: ECG. Normal sinus rhythm with a rate of 68. No significant change was found. Code Status & VTE Plan VTE Prophylaxis Plan VTE Prophylaxis will be ordered: Yes
[2023-04-11] MEDS ORDERED: POLYETHYLENE (MIRALAX) 17 GM PACK PO PRN (00:32)
[2023-04-11] MEDS ORDERED: ACETAMINOPHEN 325 MG TAB PO PRN (00:32)
[2023-04-11] MEDS ORDERED: FUROSEMIDE 20 MG TAB PO PRN (00:32)
[2023-04-11] MEDS ORDERED: POTASSIUM CHLORIDE 10 MEQ TABCR PO PRN (00:32)
[2023-04-11 02:05] LABS: Appearance Urine Clear (Clear); Bilirubin Urine Negative (Negative); Blood Urine Negative (Negative); Color Urine Yellow; Glucose Urine UA Negative (Negative); Ketones Urine Trace (Negative); Leukocyte Esterase Urine Negative (Negative); Nitrite Urine Negative (Negative); Protein Urine Negative (Negative); Specific Gravity Urine 1.021 (1.000-1.030); Urobilinogen Urine Negative (Negative); pH Urine 5.5 (4.5-7.5)
[2023-04-11 06:12] LABS: Basophils # (auto) 0.03 K/uL (0.00-0.20); Basophils % (auto) 0.5 %; Eosinophils # (auto) 0.23 K/uL (0.00-0.50); Eosinophils % (auto) 3.5 %; Hematocrit (blood only) 37.7 % (37.0-47.0); Hemoglobin 12.9 g/dl (12.0-16.0); Immature Granulocytes # (auto) 0.02 K/uL (0.01-0.20); Immature Granulocytes % (auto) 0.3 %; Lymphocytes # (auto) 2.01 K/uL (1.20-3.40); Lymphocytes % (auto) 30.5 %; Mean Corpuscular Hemoglobin 31.8 pg (25.0-34.0); Mean Corpuscular Hgb Conc 34.2 g/dL (32.0-36.0); Mean Corpuscular Volume 92.9 fL (80.0-100.0); Mean Platelet Volume 10.7 fL (9.4-12.4); Monocytes # (auto) 0.54 K/uL (0.11-0.59); Monocytes % (auto) 8.2 %; Neutrophils # (auto) 3.75 K/uL (1.40-6.50); Platelet Count 215 K/uL (130-400); RDW Coefficient of Variation 13.8 % (11.5-14.5); RDW Standard Deviation 47.5 fL (36.4-46.3); Red Blood Count 4.06 M/uL (4.20-5.40); White Blood Count 6.58 K/ul (4.8-10.8)
[2023-04-11] MEDS: LEVOTHYROXINE SODIUM 175 MCG TABLET PO SCH (06:23)
[2023-04-11 06:30] LABS: BUN Creatinine Ratio 19.4 (10-20); Calcium 8.6 mg/dl (8.6-10.3); Creatinine Clr Calc Pharmacy 64.1 ml/min; Est GFR (African American) 67.3 ml/min; Potassium 3.9 mmol/L (3.5-5.1)
[2023-04-11] MEDS: ENOXAPARIN INJ 40 MG/0.4 ML SYR SQ SCH (08:12)
[2023-04-11] MEDS: ATENOLOL 25 MG TABLET PO SCH (08:12)
--- NOTE | 2023-04-11 08:31 | XRay Report ---
XR chest 1V portable CLINICAL HISTORY: weakness COMPARISON STUDY: Chest radiograph August 17, 2020. FINDINGS: There is no pneumothorax or pleural effusion. No consolidation is identified. No evidence f or pulmonary edema. Mild cardiomegaly is unchanged. IMPRESSION: No acute cardiopulmonary findings. Cardiomegaly. ACT 112: Negative or not required by law. Electronically signed by: Octavio Rivera M.D. 04/11/2023 8:30 AM
--- NOTE | 2023-04-11 15:24 | Hospitalist Progress Note ---
Date of Service April 11, 2023 Assessment & Plan (1) Weakness: Plan: Ms. Kilgore is an 82-year-old female with past medical history significant for hypothyroidism, hypertension, morbid obesity, chronic kidney disease stage III presented on 04/10 with weakness and ambulatory dysfunction. Patient states that today she could not get up from the commode when she called her emergency alert and was brought in here. She usually ambulates with a cane at home. She lives alone. Patient states she is progressive weakness/deconditioning due to lack of movement in general. She usually only leaves with the roller walker to go to grocery store 1-2 weeks. She notes that her "memory is poor" and has wondered if she needs assisted living. She would like to explore rehab options if possible #Weakness of bilateral lower extremity #Ambulatory dysfunction CT head without acute intracranial findings Labs without signs of infection or obvious metabolic etiology UA negative, biofire negative PT OT ordered, agreeable to rehab #Morbid obesity BMI 51.5, endorses increase sedentary habits, only leaves home every 1-2 weeks, reports progressive difficult, weight gain and decline in functional status -counseled on lifestyle modifications, discussed rehab #Hypothyroidism On Synthyroid TSH 2.04 #Chronic nonpitting Lower extremity edema States same as before On Lasix as needed #Hypertension On atenolol #CKD stage III Creatinine 0.9 Baseline DVT prophylaxis Lovenox Disposition Observe on medical floor, discuss placement with CM Full code Admission and Anticipated Discharge Date Admission Date: April 10, 2023 Subjective NAEO Denies any symptoms--just notes that she is progressively less active and has noted weakness in legs for weeks--ultimately leading to inability to rise from seated position Discussed rehab, patient agreeable--patient also thinks she may need to transition to assisted living at some point Denies chest pain, palpitations, SOB or other acute issues at this time Physical Exam Respiratory: normal respiratory effort, lungs clear to auscultation Cardiovascular: RRR, no murmur Gastrointestinal (Abdomen): normal bowel sounds, soft, nontender, no hepatosplenomegaly Musculoskeletal: bilateral nonpitting edema (chronic per patient) , strength 5/5 in bilateral lower extremities, sensation intact Results & Data Results & Data Vital Signs (Past 12 Hours) Vital Signs Temp Pulse Resp BP Pulse Ox O2 Del Method 04/11/23 07:30 Room Air 04/11/23 07:24 36.6 C 65 16 138/71 95 Room Air Laboratory Results Short CBC 04/10/23 04/11/23 Range/Units 19:32 05:16 WBC 8.94 6.58 (4.8-10.8) K/ul Hgb 14.6 12.9 (12.0-16.0) g/dl Hct 44.5 37.7 (37.0-47.0) % Plt Count 254 215 (130-400) K/uL BMP 04/10/23 04/11/23 19:32 05:16 Sodium 140 141 Potassium 3.9 3.9 Chloride 105 108 H Carbon Dioxide 27 28 BUN 19 18 Creatinine 0.96 0.93 Glucose 95 87 Calcium 9.5 8.6 Liver Function 04/10/23 Range/Units 19:32 Total Bilirubin 0.9 (0.2-1.0) mg/dl AST 15 (13-39) U/L ALT 11 (7-52) U/L Alkaline Phosphatase 75 (34-104) U/L Albumin 4.1 (3.4-5.0) gm/dl Urine 04/11/23 Range/Units 01:45 Urine Color Yellow Urine Appearance Clear (Clear) Urine pH 5.5 (4.5-7.5) Ur Specific Kimberly 1.021 (1.000-1.030) Urine Protein Negative (Negative) Urine Glucose (UA) Negative (Negative) Medications Administered Home Medications Medication Instructions Recorded Confirmed Last Taken atenolol 25 mg tablet 25 mg PO DAILY 04/10/23 04/10/23 Unknown furosemide 20 mg tablet 20 mg PO DAILY PRN .EDEMA/WT GAIN 04/10/23 04/10/23 Unknown furosemide 20 mg tablet 20 mg PO DAILY PRN Edema 04/10/23 04/10/23 Unknown levothyroxine 175 mcg tablet 175 mcg PO DAILY 04/10/23 04/10/23 Unknown levothyroxine 175 mcg tablet 175 mcg PO QAM 04/10/23 04/10/23 Unknown naproxen sodium 220 mg tablet 220 mg PO BID PRN Pain 04/10/23 04/10/23 Unknown (Aleve) potassium chloride 10 mEq 10 meq PO DAILY PRN WHEN TAKES 04/10/23 04/10/23 Unknown capsule,extended release LASIX potassium chloride 10 mEq 10 meq PO UD 04/10/23 04/10/23 Unknown capsule,extended release vit C 250 mg-vit E 90 mg-zinc 40 1 tab PO AMHS 04/10/23 04/10/23 Unknown mg-copper 1 [id number] capsule (PreserVision AREDS-2) Active Medications Generic Name Dose Route Start Last Admin Trade Name Freq PRN Reason Stop Dose Admin Atenolol 25 mg 04/11/23 09:00 04/11/23 08:12 Atenolol 25 Mg Tablet PO 05/11/23 08:59 25 mg DAILY HAZEL Administration Enoxaparin Sodium 40 mg 04/11/23 09:00 04/11/23 08:12 Enoxaparin Inj 40 Mg/0.4 Ml Syr SQ 05/11/23 08:59 40 mg Q12H HAZEL Administration Levothyroxine Sodium 175 mcg 04/11/23 06:30 04/11/23 06:23 Levothyroxine Sodium 175 Mcg Tablet PO 05/11/23 06:29 175 mcg DAILYBB HAZEL Administration
--- NOTE | 2023-04-12 06:23 | Electrocardiogram Report ---
Test Reason : Blood Pressure : / mmHG Vent. Rate : 068 BPM Atrial Rate : 068 BPM P-R Int : 116 ms QRS Dur : 088 ms QT Int : 422 ms P-R-T Axes : 030 -04 -11 degrees QTc Int : 448 ms Normal sinus rhythm Cannot rule out Anterior infarct , age undetermined Abnormal ECG When compared with ECG of 17-AUG-2020 16:01, No significant change was found Confirmed by Bret Rehman ([id number]) on 04/12/2023 6:23:27 AM Referred By: REFERRED SELF Confirmed By:Bret Rehman
[2023-04-12 08:12] LABS: Hematocrit (blood only) 40.8 % (37.0-47.0); Hemoglobin 13.2 g/dl (12.0-16.0); Mean Corpuscular Hemoglobin 30.5 pg (25.0-34.0); Mean Corpuscular Hgb Conc 32.4 g/dL (32.0-36.0); Mean Corpuscular Volume 94.2 fL (80.0-100.0); Mean Platelet Volume 10.9 fL (9.4-12.4); Platelet Count 213 K/uL (130-400); RDW Standard Deviation 48.5 fL (36.4-46.3); Red Blood Count 4.33 M/uL (4.20-5.40); White Blood Count 5.12 K/ul (4.8-10.8)
[2023-04-12 08:35] LABS: Calcium 8.9 mg/dl (8.6-10.3); Creatinine Clr Calc Pharmacy 59.6 ml/min; Est GFR (African American) 61.6 ml/min; Est GFR (Non-African American) 53.2 ml/min; Magnesium 2.1 mg/dl (1.7-2.4); Phosphorus 3.6 mg/dl (2.5-4.9); Potassium 4.1 mmol/L (3.5-5.1)
[2023-04-12 09:00] LABS: Folate (Folic Acid),Ser orPlas 7.81 ng/ml (>5.38)
[2023-04-12] MEDS: INFLUENZA VACCINE HIGH-DOSE (HD-IIV4) PF 65+ 0.7mL SYR IM ONE (12:01)
--- NOTE | 2023-04-12 12:51 | Discharge Summary ---
Discharge Summary Date of Service April 12, 2023 Notes For Next Care Provider Discussed thoroughly importance of participating with PT/OT at home Medication Changes From Visit none Admission HPI Per Admitting Provider 82-year-old female with past medical history significant for hypothyroidism, hypertension, morbid obesity, chronic kidney disease stage III presents with weakness and ambulatory dysfunction. Patient states that today she could not get up from the commode when she called her emergency alert and was brought in here. She usually ambulates with a cane at home. She lives alone. Denies any fevers. No abdominal pain. Normal bowel and bladder movements. No chest pain or shortness of breath. No cough. No difficulty swallowing. No headache. No earache or runny nose or sore throat. Currently resting comfortably and hemodynamically stable. Past medical history. As mentioned above Past surgical history. Colonoscopy. Colposcopy. 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 Tonsillectomy adenoidectomy. Social history. lives alone. No smoking. Alcohol occasional wine. No drug use. Family history. Father had prostate cancer. Brother had cardiac stent. Aunt had breast cancer. Admission Exam Per Admitting Provider General- Not in distress Head- atraumatic Eyes- PERRL. ENT- oropharynx clear Neck- supple, no JVD. Lungs- clear to auscultation no wheezing or crackles. Heart- regular rhythm; no murmur, no gallop. Abdomen- normal bowel sounds, soft, nontender, no distension Extremities- b/l lower extremity edema present. no erythema seen. Neuro- alert, oriented x 3; PERRL,; no facial palsy; no dysarthria; motor 3/5 lower extremity 5/5 upper extremity. sensations intact lower extremity. can lift and hold lower extremity with some difficulty. Skin- warm & dry Principal Dx & Hospital Course #1 = Principal Diagnosis (1) Weakness: Ms. Kilgore is an 82-year-old female with past medical history significant for hypothyroidism, hypertension, morbid obesity, chronic kidney disease stage III presented on 04/10 with weakness and ambulatory dysfunction. Patient states that today she could not get up from the commode when she called her emergency alert and was brought in here. She usually ambulates with a cane at home. She lives alone. Patient states she is progressive weakness/deconditioning due to lack of movement in general. She usually only leaves with the roller walker to go to grocery store 1-2 weeks. She notes that her "memory is poor" and has wondered if she needs assisted living. She would like to explore rehab options if possible. On day of discharge, patient stated she would rather opt for Home Pt/Ot rather than SNF/rehab. Patient states she feels well and denies any acute concerns prior to discharge. Brother at bedside, all questions answered. #Weakness of bilateral lower extremity #Ambulatory dysfunction CT head without acute intracranial findings Labs without signs of infection or obvious metabolic etiology UA negative, biofire negative PT OT --declined rehab, plan for HHPT/OT #Morbid obesity BMI 51.5, endorses increase sedentary habits, only leaves home every 1-2 weeks, reports progressive difficult, weight gain and decline in functional status -counseled on lifestyle modifications, discussed measures to prevent falls #Hypothyroidism On Synthyroid TSH 2.04 #Chronic nonpitting Lower extremity edema States same as before On Lasix as needed #Hypertension On atenolol #CKD stage III Creatinine 0.9 Baseline Discharge Exam Constitutional WD/WN, vitals as above Respiratory normal respiratory effort, lungs clear to auscultation Cardiovascular RRR, no murmur, no edema Gastrointestinal (Abdomen) normal bowel sounds, soft, nontender, no hepatosplenomegaly Musculoskeletal no cyanosis or clubbing, extremities motor strength 5/5 Updated Medication List Medication Instructions Recorded Confirmed Type atenolol 25 mg tablet 25 mg PO DAILY 04/10/23 04/10/23 History furosemide 20 mg tablet 20 mg PO DAILY PRN .EDEMA/WT GAIN 04/10/23 04/10/23 History furosemide 20 mg tablet 20 mg PO DAILY PRN Edema 04/10/23 04/10/23 History levothyroxine 175 mcg tablet 175 mcg PO QAM 04/10/23 04/10/23 History naproxen sodium 220 mg tablet 220 mg PO BID PRN Pain 04/10/23 04/10/23 History (Aleve) potassium chloride 10 mEq 10 meq PO DAILY PRN WHEN TAKES 04/10/23 04/10/23 Hist ory capsule,extended release LASIX potassium chloride 10 mEq 10 meq PO UD 04/10/23 04/10/23 History capsule,extended release vit C 250 mg-vit E 90 mg-zinc 40 1 tab PO AMHS 04/10/23 04/10/23 History mg-copper 1 [id number] capsule (PreserVision AREDS-2) Hospital Stay Data Consultations 04/10/23 21:20 ED Decision to Admit Stat Diagnostic Imagining Performed 04/10/23 20:00 CT head/brain wo con Stat Pending Results Patient Have Any Pending Studies at Discharge: No Discharge Instructions Given to Patient (Per Discharging Provider) You were admitted for weakness. You were recommended to have Home Health Services which have been set up at this time. There were no changes to your medications. It is recommended that you participate with physical therapy and increase your activity, as progressive weakness can potentially lead to falls as well as discussion of longer term needs. Home Health Attestation I certify that this patient is under my care and that I, or a physicians certified physician's assistant working with me, had a face to-face encounter that meets the home health [id number] encounter requirements with this patient. The encounter with the patient was in whole, or in part, for the following medical condition, which is the primary reason for home health care (list medical condition): PT/OT--generalized weakness/deconditioning hindering mobility/safety at home I certify that, based on my findings, the following services are medically necessary home health services: PT/OT My clinical findings support the need for the above services because: General Weakness, safety concerns Further, I certify that my clinical findings support that this patient is homebound (i.e. absences from home require considerable and taxing effort and are for medical reasons or [employer] services or infrequently or of short duration when for other reasons) because: morbid obesity, weakness Certification for Home Health Services: Based on the above findings, I certify that this patient is confined to the home and needs intermittent fpc care, physical therapy and/or speech therapy or continues to need occupational therapy. The patient is under my care, and I have initiated the establishment of the plan of care. This patient will be followed by a physician who will periodically review the plan of care. Total Time Total Time Spent Total Time Spent (In Minutes): 45
== END 2023-04-12 12:48 | disposition home health service (06) ==
LOC: 3W 19:23 → ED 19:23 → 3W 04-11 01:58

== ENCOUNTER 2024-04-18 21:21 | Observation (INO) ==
[2024-04-18 21:47] LABS: Basophils # (auto) 0.01 K/uL (0.00-0.20); Basophils % (auto) 0.2 %; Eosinophils # (auto) 0.05 K/uL (0.00-0.50); Eosinophils % (auto) 1.1 %; Hematocrit (blood only) 44.6 % (37.0-47.0); Hemoglobin 14.9 g/dl (12.0-16.0); Immature Granulocytes # (auto) 0.01 K/uL (0.01-0.20); Immature Granulocytes % (auto) 0.2 %; Lymphocytes # (auto) 0.79 K/uL (1.20-3.40); Lymphocytes % (auto) 17.3 %; Mean Corpuscular Hemoglobin 30.8 pg (25.0-34.0); Mean Corpuscular Hgb Conc 33.4 g/dL (32.0-36.0); Mean Corpuscular Volume 92.1 fL (80.0-100.0); Mean Platelet Volume 10.3 fL (9.4-12.4); Monocytes % (auto) 15.4 %; Neutrophils % (auto) 65.8 %; Platelet Count 177 K/uL (130-400); RDW Coefficient of Variation 13.3 % (11.5-14.5); RDW Standard Deviation 45.3 fL (36.4-46.3); Red Blood Count 4.84 M/uL (4.20-5.40); White Blood Count 4.56 K/ul (4.8-10.8)
[2024-04-18 22:02] LABS: Appearance Urine Clear (Clear); Bacteria Urine Automated None Seen (None Seen); Bilirubin Urine Negative (Negative); Blood Urine Negative (Negative); Cast Urine Automated 0-2 /lpf (0-2); Color Urine Dark Yellow; Epithelial Cell Urine Auto 0-2 /hpf (0-2); Glucose Urine UA Negative (Negative); Ketones Urine 1+ (Negative); Leukocyte Esterase Urine Negative (Negative); Nitrite Urine Negative (Negative); Protein Urine 2+ (Negative); RBC Urine Automated 0-2 /hpf (0-2); Specific Gravity Urine 1.026 (1.000-1.030); Urobilinogen Urine Negative (Negative); WBC Urine Automated 0-5 /hpf (0-5)
--- NOTE | 2024-04-18 22:07 | Emergency Department Note ---
Impression & Plan Ambulatory dysfunction Admission ED Provider Note HPI: History obtained from patient and bedside RN via EMS report. The patient is a 83-year-old female who presents the emergency department with confusion having been found down today by family. Patient does have a history of dementia, reportedly the family did not hear from her today and they went to check on her and found her laying down in her bedroom on the floor and she seemed to be more confused than usual. On arrival here to the ED the patient is unsure of what exactly led to her presentation, she is alert on arrival, she is able to answer simple questions appropriately, she denies any focal complaint of pain. Patient is able to follow commands. She is aware that she is in the hospital but she is unsure of the year. Patient does not have any focal deficits on my initial evaluation, she is otherwise hemodynamically stable and appears to be in no acute distress ROS: - Per HPI Differential Diagnosis: Ambulatory dysfunction with mechanical fall, intracranial injury to include subdural hematoma, epidural hematoma, rhabdomyolysis, acute kidney injury, stroke, sepsis, amongst other potential pathologies. *Outpatient medications and allergy history reviewed. PE: General: Alert, frail-appearing, no acute distress HEENT: Normocephalic, trachea midline Eyes: Extraocular eye movement is intact, no scleral erythema Pulmonary: Clear to auscultation bilaterally, no wheezing Cardio: Regular rate and rhythm GI: Abdomen is soft to palpation : No suprapubic tenderness MSK: No evidence of trauma or malformation of the extremities, no edema Skin: No evidence of rash Neuro: Alert, no focal deficits Psychiatric: Cooperative INDEPENDENT INTERPRETATIONS: histopathology technician: (As interpreted by myself): - An order was placed for continuous cardiac monitoring - Patient was noted to be in sinus rhythm with a rate of 80 EKG: (As interpreted by myself): Rate: 81 Rhythm: Normal sinus rhythm Intervals: Within normal limits ST changes: No ST elevation Time: 2127 Chest x-ray: (As interpreted by myself): No focal infiltrate Interventions provided in ED: -IV fluid bolus Medical Decision Making: IV was established and lab work obtained, patient was placed on inspector technician. Lab work shows a mild leukopenia, hemoglobin is normal, platelet count is normal, CMP does not show any evidence of any critical findings, total creatinine kinase is elevated at 47, troponin is mildly elevated at 34.3. Patient denies any chest pain, EKG per my interpretation shows normal sinus rhythm with a rate of 81, no acute ischemic changes are noted. CT meeting of the head was also obtained that does not show any evidence of any acute intracranial process. Chest x-ray does not show any evidence of focal infiltrate. On my reassessment the patient is resting comfortably in bed, she states she feels well following fluids. She does have memory issues and dementia, she cannot fully recount how she ended up on the floor this evening. Her younger brother later arrived at the bedside, he is the POA, he states that he does have concerns about her living alone and he feels that she needs to be placed in a longterm, I am in agreement with this. Patient was in agreement for admission for medical issues including elevated troponin as well as elevated total creatinine kinase for which she was given IV fluids. Case was discussed with the on-call hospitalist, Dr. Rodriguez, and the patient was placed for admission in stable condition. Consultants/Discussions held with other healthcare providers: -Hospitalist, Dr. Rodriguez Disposition discussion held by myself with: -Patient and patient's brother at the bedside Diagnosis: 1. Rhabdomyolysis, acute 2. Elevated troponin, acute 3. History of dementia 4. Found down at home 5. Ambulatory dysfunction, acute Disposition: Admission Gabriel Haddad DO Emergency Medicine Past Med/Surg History Problem List (Updated 04/19/24 @ 01:47 by Gabriel Haddad DO) Weakness Ambulatory dysfunction (Acute) Generalized weakness (Acute) Social History Smoking Status: Never smoker Second Hand Exposure: No; Do You Dip or Chew Tobacco: No; Hx Alcohol Use: Yes Alcohol type: wine Hx Substance Use: No Preferred Language: Citizen Of [place] Communication Ability: Effective Satellite Dish Repairer Required: No Beliefs That Will Affect Care: None Current Living Situation: Alone Feels Safe at Home: Yes Assistive Devices: Walker Allergies Allergies Allergy/AdvReac Type Severity Reaction Status Date / Time ROLAND Inhibitors Allergy Unknown UNKNOWN Verified 04/19/24 00:02 Penicillins Allergy Unknown UNKNOWN Verified 04/19/24 00:02 Qitiknd-NVA-HkZ Reductase Allergy Unknown UNKNOWN Verified 04/19/24 00:02 Inhibitor [Usypglw-Jrz-Asr Reductase Inhibitor] Home Meds Home Medications Medication Instructions Recorded Confirmed atenolol 25 mg tablet 25 mg PO DAILY 04/10/23 04/19/24 furosemide 20 mg tablet 20 mg PO DAILY PRN Edema 04/10/23 04/19/24 levothyroxine 175 mcg tablet 175 mcg PO QAM 04/10/23 04/19/24 potassium chloride 10 mEq 10 meq PO DAILY PRN WHEN TAKES 04/10/23 04/19/24 capsule,extended release LASIX vit C 250 mg-vit E 90 mg-zinc 40 1 tab PO AMHS 04/10/23 04/19/24 mg-copper 1 [id number] capsule (PreserVision AREDS-2) Results & Data (ED) Vital Signs Vital Signs - 24 hr 04/18/24 21:26 04/18/24 21:27 04/18/24 22:43 Temperature 37 C 36.8 C Temperature Source Oral Oral Pulse Rate 78 96 H Pulse Rate [Apical] 81 Pulse Rhythm Regular Pulse Strength Normal Respiratory Rate 20 20 Respiratory Effort / Characteristics Non-Labored Spontaneous Non-Labored Spontaneous Respiratory Depth Normal Normal Respiratory Pattern Regular Regular Blood Pressure 186/92 H Blood Pressure [Right Arm] 152/89 H Blood Pressure Mean 123 Blood Pressure Mean [Right Arm] 110 Blood Pressure Position Sitting Blood Pressure Position [Right Arm] Semi-fowlers Pulse Oximetry 96 96 Oxygen Delivery Method Room Air Room Air Sepsis Recent Fever Within 48 Hours No Sepsis New/Unexplained Change in Mental Status N/A Sepsis Action Taken by Nursing No Action Required Laboratory Data 04/18/24 21:27 04/18/24 22:28 Lab Results 04/18/24 04/18/24 04/18/24 Range/Units 21:27 21:47 21:54 WBC 4.56 L (4.8-10.8) K/ul RBC 4.84 (4.20-5.40) M/uL Hgb 14.9 (12.0-16.0) g/dl Hct 44.6 (37.0-47.0) % MCV 92.1 (80.0-100.0) fL MCH 30.8 (25.0-34.0) pg MCHC 33.4 (32.0-36.0) g/dL RDW Std Deviation 45.3 (36.4-46.3) fL RDW Coeff of Shauna 13.3 (11.5-14.5) % Plt Count 177 (130-400) K/uL MPV 10.3 (9.4-12.4) fL Immature Gran % (Auto) 0.2 % Neut % (Auto) 65.8 % Lymph % (Auto) 17.3 % [place] % (Auto) 15.4 % Eos % (Auto) 1.1 % Baso % (Auto) 0.2 % Neut # (Auto) 3.00 (1.40-6.50) K/uL Lymph # (Auto) 0.79 L (1.20-3.40) K/uL [place] # (Auto) 0.70 H (0.11-0.59) K/uL Eos # (Auto) 0.05 (0.00-0.50) K/uL Baso # (Auto) 0.01 (0.00-0.20) K/uL Immature Gran # (Auto) 0.01 (0.01-0.20) K/uL Sodium 139 (136-145) mmol/L Potassium TNP Chloride 104 (98-107) mmol/L Carbon Dioxide 27 (21-32) mmol/L Anion Gap 8 (3-11) BUN 24 H (6-23) mg/dl Creatinine 0.77 (0.6-1.2) mg/dl Est Cr Clr Drug Dosing 80.7 ml/min eGFR 77.45 BUN/Creatinine Ratio 31.2 H (10-20) Glucose 86 (70-99(Fasting)) mg/dl Lactate 1.3 (0.4-2.0) mmol/L Calcium 8.8 (8.6-10.3) mg/dl Magnesium (1.7-2.4) mg/dl Total Bilirubin 0.7 (0.2-1.0) mg/dl AST TNP ALT 22 (7-52) U/L Alkaline Phosphatase 64 (34-104) U/L Total Creatine Kinase 487 H (26-192) U/L Troponin I High Sens 34.3 H (0-14) pg/ml Total Protein 6.4 (6.0-8.3) gm/dl Albumin 3.9 (3.4-5.0) gm/dl Globulin 2.5 (2.5-4.0) gm/dl Albumin/Globulin Ratio 1.6 (0.9-2) Lipase 11 (11-82) U/L Urine Color Dark Yellow Urine Appearance Clear (Clear) Urine pH 5.0 (4.5-7.5) Ur Specific [place] 1.026 (1.000-1.030) Urine Protein 2+ H (Negative) Urine Glucose (UA) Negative (Negative) Urine Ketones 1+ H (Negative) Urine Blood Negative (Negative) Urine Nitrite Negative (Negative) Urine Bilirubin Negative (Negative) Urine Urobilinogen Negative (Negative) Ur Leukocyte Esterase Negative (Negative) Urine WBC (Auto) 0-5 (0-5) /hpf Urine RBC (Auto) 0-2 (0-2) /hpf U Hyaline Cast (Auto) 0-2 (0-2) /lpf U Epithel Cells (Auto) 0-2 (0-2) /hpf Urine Bacteria (Auto) None Seen (None Seen) 04/18/24 04/18/24 Range/Units 22:28 23:08 WBC (4.8-10.8) K/ul RBC (4.20-5.40) M/uL Hgb (12.0-16.0) g/dl Hct (37.0-47.0) % MCV (80.0-100.0) fL MCH (25.0-34.0) pg MCHC (32.0-36.0) g/dL RDW Std Deviation (36.4-46.3) fL RDW Coeff of Shauna (11.5-14.5) % Plt Count (130-400) K/uL MPV (9.4-12.4) fL Immature Gran % (Auto) % Neut % (Auto) % Lymph % (Auto) % [place] % (Auto) % Eos % (Auto) % Baso % (Auto) % Neut # (Auto) (1.40-6.50) K/uL Lymph # (Auto) (1.20-3.40) K/uL [place] # (Auto) (0.11-0.59) K/uL Eos # (Auto) (0.00-0.50) K/uL Baso # (Auto) (0.00-0.20) K/uL Immature Gran # (Auto) (0.01-0.20) K/uL Sodium (136-145) mmol/L Potassium 3.8 Chloride (98-107) mmol/L Carbon Dioxide (21-32) mmol/L Anion Gap (3-11) BUN (6-23) mg/dl Creatinine (0.6-1.2) mg/dl Est Cr Clr Drug Dosing ml/min eGFR BUN/Creatinine Ratio (10-20) Glucose (70-99(Fasting)) mg/dl Lactate (0.4-2.0) mmol/L Calcium (8.6-10.3) mg/dl Magnesium 1.9 (1.7-2.4) mg/dl Total Bilirubin (0.2-1.0) mg/dl AST 43 H ALT (7-52) U/L Alkaline Phosphatase (34-104) U/L Total Creatine Kinase (26-192) U/L Troponin I High Sens 34.4 H (0-14) pg/ml Total Protein (6.0-8.3) gm/dl Albumin (3.4-5.0) gm/dl Globulin (2.5-4.0) gm/dl Albumin/Globulin Ratio (0.9-2) Lipase (11-82) U/L Urine Color Urine Appearance (Clear) Urine pH (4.5-7.5) Ur Specific [place] (1.000-1.030) Urine Protein (Negative) Urine Glucose (UA) (Negative) Urine Ketones (Negative) Urine Blood (Negative) Urine Nitrite (Negative) Urine Bilirubin (Negative) Urine Urobilinogen (Negative) Ur Leukocyte Esterase (Negative) Urine WBC (Auto) (0-5) /hpf Urine RBC (Auto) (0-2) /hpf U Hyaline Cast (Auto) (0-2) /lpf U Epithel Cells (Auto) (0-2) /hpf Urine Bacteria (Auto) (None Seen) Administered Medications Doxycycline Hyclate 100 mg/ (Dextrose) 100 mls @ 50 mls/hr IV NOW STA Stop: 04/19/24 02:07 Last Admin: 04/19/24 01:13 Dose: 50 mls/hr Documented By: SALLY Discontinued Medications Albuterol (Albut/Ipratrop 3mg/0.5mg Neb 3 Ml Vial) 3 ml NEB NOW STA; Protocol Stop: 04/19/24 00:06 Last Admin: 04/19/24 01:13 Dose: 3 ml Documented By: SALLY Sodium Chloride (Nss) 1,000 mls @ 999 mls/hr IV .Q1H1M ONE Stop: 04/18/24 22:37 Last Infusion: 04/18/24 23:12 Dose: Infused Documented By: Admin: 04/18/24 22:10 Dose: 999 mls/hr Documented By: DARON Imaging Data Radiologist's Impression: Chest X-Ray 04/18/24 21:36 Exam(s): XR CXR 1 VIEW EXAM: XR Chest, 1 View CLINICAL HISTORY: Reason for exam: Chest pain, nonspecific. TECHNIQUE: Frontal view of the chest. COMPARISON: Prior chest x-ray from April 10, 2023. FINDINGS: Lungs: Moderate peribronchial thickening of the central bronchi. No consolidation. Pleural space: Unremarkable. No pneumothorax. Heart: Unremarkable. No cardiomegaly. Mediastinum: Unremarkable. Normal mediastinal contour. Bones/joints: Diffuse osteopenia throughout the visualized bones. No acute fracture. IMPRESSION: Bronchitis, which may be of infectious or inflammatory etiologies. No consolidation or pleural effusion. Electronically signed by: Shruti Melendez MD 04/19/24 01:[address] 04/18/24 21:36 Exam(s): CT HEAD Without Contrast EXAM: CT Head Without Intravenous Contrast CLINICAL HISTORY: Reason for exam: found down. TECHNIQUE: Axial computed tomography images of the head/brain without intravenous contrast. CTDI is 36.43 mGy and DLP is 624.41 mGy-cm. Automated exposure control was utilized for the study. A dose lowering technique was utilized adhering to the principles of ALARA. COMPARISON: Prior head CT from April 10, 2023. FINDINGS: Brain: Unremarkable. No hemorrhage. Mild nonspecific white matter changes. No edema. Ventricles: Unremarkable. No ventriculomegaly. Bones/joints: Unremarkable. No acute fracture. Soft tissues: Unremarkable. Sinuses: Chronic ethmoid sinusitis with small air-fluid levels in the maxillary and sphenoid sinuses. No acute sinusitis. Mastoid air cells: Unremarkable as visualized. No mastoid effusion. IMPRESSION: No evidence of acute intracranial pathology. Electronically signed by: Shruti Melendez MD 04/19/24 00:24 AM Discharge Plan Visit Data Chief Complaint: Altered Mental Status Stated Complaint: S/P FALL, ALTERED MENTAL STATUS ED Provider: Gabriel Haddad Discharge Problem: Ambulatory dysfunction Patient Disposition: Admitted As Inpatient Discharge Instructions Interventions: ED Discharge Assessment Last Done: 04/19/24 00:56
[2024-04-18] MEDS: SODIUM CHLORIDE 0.9% 1,000 ML IV ONE (22:10)
[2024-04-18 22:11] LABS: Alanine Aminotransferase 22 U/L (7-52); Albumin Globulin Ratio 1.6 (0.9-2); Albumin Level 3.9 gm/dl (3.4-5.0); Alkaline Phosphatase 64 U/L (34-104); Anion Gap 8 (3-11); BUN Creatinine Ratio 31.2 (10-20); Bilirubin,Total 0.7 mg/dl (0.2-1.0); Blood Urea Nitrogen 24 mg/dl (6-23); Calcium 8.8 mg/dl (8.6-10.3); Carbon Dioxide 27 mmol/L (21-32); Chloride 104 mmol/L (98-107); Creatine Kinase 487 U/L (26-192); Creatinine Clr Calc Pharmacy 80.7 ml/min; Globulin 2.5 gm/dl (2.5-4.0); Glucose 86 mg/dl (70-99(Fasting)); Lipase 11 U/L (11-82); Sodium 139 mmol/L (136-145); Total Protein 6.4 gm/dl (6.0-8.3)
[2024-04-18 22:19] LABS: Troponin I High Sensitivity 34.3 pg/ml (0-14)
[2024-04-18 23:19] LABS: Potassium 3.8 mmol/L (3.5-5.1)
--- NOTE | 2024-04-18 23:41 | History & Physical Report ---
Date of Service April 18, 2024 Assessment & Plan (1) Asymptomatic hypertensive urgency: Plan: Hypertensive urgency Influenza illness Bilateral LE cellulitis, history chronic lymphedema, no sepsis for now rule out DVT hyperlipidemia/statin intolerance hypothyroidism, euthyroid as of today TSH Cognitive impairment, possible dementia Functional disability/ambulatory dysfunction Admit to med/tele Facilitate home BP meds Tamiflu Doxycycline for LE cellulitis LE venous Dopplers rule out DVT PT OT eval Social service re: placement DVT prophylaxis. Lovenox subcu Full code Patient brother requesting updates providers. Mr. Gelacio Zhang, contact #[phone]. Text document was generated using [employer] voice recognition software. It may contain grammatical or spelling errors. Kindly contact undersigned for clarification of any documentation item in question. History of Present Illness Chief Complaint: Altered mental status Primary Care Provider: Juan Trores MD History obtained from patient, family, and records. Limited history from patient secondary to confusion. Medical history significant for hypertension, hyperlipidemia, hypothyroidism, mood disorder, chronic lymphedema, gout. Last confinement last year for generalized weakness and ambulatory dysfunction. Memory concerns noted during confinement. Patient family did not hear from patient yesterday. They found patient on the floor of her home. Patient does not recall how she fell down. Denies headache symptoms. Denies chest pain, SOB. New raspy cough symptoms. New bilateral leg redness as per patient. Patient brought to ER for evaluation. Family feels patient unsafe to be at home by herself at this point.. SBP 180s upon arrival at the ER. 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 Allergies Allergy/AdvReac Type Severity Reaction Status Date / Time ROLAND Inhibitors Allergy Unknown UNKNOWN Verified 04/19/24 00:02 Penicillins Allergy Unknown UNKNOWN Verified 04/19/24 00:02 Ixtjoip-QLN-CqC Reductase Allergy Unknown UNKNOWN Verified 04/19/24 00:02 Inhibitor [Oxcenwb-Dgh-Jti Reductase Inhibitor] Home Medications Medication Instructions Recorded Confirmed Type atenolol 25 mg tablet 25 mg PO DAILY 04/10/23 04/19/24 History furosemide 20 mg tablet 20 mg PO DAILY PRN Edema 04/10/23 04/19/24 History levothyroxine 175 mcg tablet 175 mcg PO QAM 04/10/23 04/19/24 History potassium chloride 10 mEq 10 meq PO DAILY PRN WHEN TAKES 04/10/23 04/19/24 History capsule,extended release LASIX vit C 250 mg-vit E 90 mg-zinc 40 1 tab PO AMHS 04/10/23 04/19/24 History mg-copper 1 hb-[id number]-gkphwf capsule (PreserVision AREDS-2) Past Med/Surg History Problem List (Updated 04/19/24 @ 05:48 by aZch Rodriguez MD) Asymptomatic hypertensive urgency Weakness Ambulatory dysfunction (Acute) Generalized weakness (Acute) Social History Smoking Status: Never smoker Second Hand Exposure: No; Do You Dip or Chew Tobacco: No; Hx Alcohol Use: Yes Alcohol type: wine Hx Substance Use: No Preferred Language: [place] Communication Ability: Effective Line Patroller Required: No Beliefs That Will Affect Care: None Current Living Situation: Alone Feels Safe at Home: Yes Assistive Devices: Walker Review of Systems Review of Systems: Could not be reliably obtained secondary to confusion Physical Exam Physical Exam: GENERAL: Slightly restless and uncomfortable, morbidly obese, raspy breathing SKIN: Normal color, warm HEENT: [place] palpebral conjunctivae, no ptosis, dry buccal mucosa NECK : Supple, short neck, no tenderness CHEST : Decreased breath sounds with rhonchi, no tenderness HEART : RRR, no obvious murmurs ABDOMEN: Some distention, nontender EXTREMITIES : Bilateral LE swelling with minimal tenderness, mild LE erythema, palpable pulses, no other conspicuous deformities noted NEUROLOGIC : Disoriented, no facial asymmetry, gait and stance not assessed Results & Data Results & Data Vital Signs (Past 12 Hours) Vital Signs Temp Pulse Pulse Resp BP BP Pulse Ox 04/18/24 22:43 36.8 C 81 20 152/89 H 96 04/18/24 21:27 96 H 04/18/24 21:26 37 C 78 20 186/92 H 96 O2 Del Method 04/18/24 22:43 Room Air 04/18/24 21:27 04/18/24 21:26 Room Air Laboratory Results Laboratory Results WBC 4.56 K/ul (4.8-10.8) L 04/18/24 21:27 RBC 4.84 M/uL (4.20-5.40) 04/18/24: Hgb 14.9 g/dl (12.0-16.0) 04/18/24: Hct 44.6 % (37.0-47.0) 04/18/24 MCV 92.1 fL (80.0-100.0) 04/18/24 MCH 30.8 pg (25.0-34.0) 04/18/24 MCHC 33.4 g/dL (32.0-36.0) 04/18/24 RDW Std Deviation 45.3 fL (36.4-46.3) 04/18/24 RDW Coeff of Shauna 13.3 % (11.5-14.5) 04/18/24 Plt Count 177 K/uL (130-400) 04/18/24 MPV 10.3 fL (9.4-12.4) 04/18/24 Immature Gran % (Auto) 0.2 % 04/18/24 Neut % (Auto) 65.8 % 04/18/24: Lymph % (Auto) 17.3 % 04/18/24: [place] % (Auto) 15.4 % 04/18/24: Eos % (Auto) 1.1 % 04/18/24 Baso % (Auto) 0.2 % 04/18/24 Neut # (Auto) 3.00 K/uL (1.40-6.50) 04/18/24 Lymph # (Auto) 0.79 K/uL (1.20-3.40) L 04/18/24 [place] # (Auto) 0.70 K/uL (0.11-0.59) H 04/18/24 Eos # (Auto) 0.05 K/uL (0.00-0.50) 04/18/24 Baso # (Auto) 0.01 K/uL (0.00-0.20) 04/18/24 Immature Gran # (Auto) 0.01 K/uL (0.01-0.20) 04/18/24 Sodium 139 mmol/L (136-145) 04/18/24 21: Potassium 3.8 mmol/L (3.5-5.1) 04/18/24 22:28 Chloride 104 mmol/L (98-107) 04/18/24: Carbon Dioxide 27 mmol/L (21-32) 04/18/24: Anion Gap 8 (3-11) 04/18/24 21: BUN 24 mg/dl (6-23) H 04/18/24 21: Creatinine 0.77 mg/dl (0.6-1.2) 04/18/24 21: Est Cr Clr Drug Dosing 80.7 ml/min 04/18/24 21: eGFR 77.45 04/18/24 21: BUN/Creatinine Ratio 31.2 (10-20) H 04/18/24 21: Glucose 86 mg/dl (70-99(Fasting)) 04/18/24: Lactate 1.3 mmol/L (0.4-2.0) 04/18/24 21:54 Calcium 8.8 mg/dl (8.6-10.3) 04/18/24: Total Bilirubin 0.7 mg/dl (0.2-1.0) 04/18/24: AST 43 U/L (13-39) H 04/18/24 22:28 ALT 22 U/L (7-52) 04/18/24 21: Alkaline Phosphatase 64 U/L (34-104) 04/18/24 21: Total Creatine Kinase 487 U/L (26-192) H 04/18/24 21: Troponin I High Sens 34.3 pg/ml (0-14) H 04/18/24 21: Total Protein 6.4 gm/dl (6.0-8.3) 04/18/24: Albumin 3.9 gm/dl (3.4-5.0) 04/18/24: Globulin 2.5 gm/dl (2.5-4.0) 04/18/24 21: Albumin/Globulin Ratio 1.6 (0.9-2) 04/18/24: Lipase 11 U/L (11-82) 04/18/24 21: Urine Color Dark Yellow 04/18/24 21:47 Urine Appearance Clear (Clear) 04/18/24 21:47 Urine pH 5.0 (4.5-7.5) 04/18/24 21:47 Ur Specific [place] 1.026 (1.000-1.030) 04/18/24 21:47 Urine Protein 2+ (Negative) H 04/18/24 21:47 Urine Glucose (UA) Negative (Negative) 04/18/24 21:47 Urine Ketones 1+ (Negative) H 04/18/24 21:47 Urine Blood Negative (Negative) 04/18/24 21:47 Urine Nitrite Negative (Negative) 04/18/24 21:47 Urine Bilirubin Negative (Negative) 04/18/24 21:47 Urine Urobilinogen Negative (Negative) 04/18/24 21:47 Ur Leukocyte Esterase Negative (Negative) 04/18/24 21:47 Urine WBC (Auto) 0-5 /hpf (0-5) 04/18/24 21:47 Urine RBC (Auto) 0-2 /hpf (0-2) 04/18/24 21:47 U Hyaline Cast (Auto) 0-2 /lpf (0-2) 04/18/24 21:47 U Epithel Cells (Auto) 0-2 /hpf (0-2) 04/18/24 21:47 Urine Bacteria (Auto) None Seen (None Seen) 04/18/24 21:47 CT head: No evidence of acute intracranial pathology. Diagnostic Findings Chest x-ray as per my interpretation interstitial infiltrates EKG as per my interpretation : Rate 80, NSR, normal axis, nonspecific T wave abnormalities
--- NOTE | 2024-04-19 00:25 | CT Scan Report ---
Exam(s): CT HEAD Without Contrast EXAM: CT Head Without Intravenous Contrast CLINICAL HISTORY: Reason for exam: found down. TECHNIQUE: Axial computed tomography images of the head/brain without intravenous contrast. CTDI is 36.43 mGy and DLP is 624.41 mGy-cm. Automated exposure control was utilized for the study. A dose lowering technique was utilized adhering to the principles of ALARA. COMPARISON: Prior head CT from April 10, 2023. FINDINGS: Brain: Unremarkable. No hemorrhage. Mild nonspecific white matter changes. No edema. Ventricles: Unremarkable. No ventriculomegaly. Bones/joints: Unremarkable. No acute fracture. Soft tissues: Unremarkable. Sinuses: Chronic ethmoid sinusitis with small air-fluid levels in the maxillary and sphenoid sinuses. No acute sinusitis. Mastoid air cells: Unremarkable as visualized. No mastoid effusion. IMPRESSION: No evidence of acute intracranial pathology. Electronically signed by: Shruti Melendez MD 04/19/24 00:24 AM
[2024-04-19 00:30] LABS: Magnesium 1.9 mg/dl (1.7-2.4)
[2024-04-19] MEDS ORDERED: ACETAMINOPHEN 325 MG TAB PO PRN (01:04)
[2024-04-19] MEDS ORDERED: PROMETHAZINE 6.25 MG/50.25 ML BAG IV PRN (01:04)
--- NOTE | 2024-04-19 01:05 | XRay Report ---
Exam(s): XR CXR 1 VIEW EXAM: XR Chest, 1 View CLINICAL HISTORY: Reason for exam: Chest pain, nonspecific. TECHNIQUE: Frontal view of the chest. COMPARISON: Prior chest x-ray from April 10, 2023. FINDINGS: Lungs: Moderate peribronchial thickening of the central bronchi. No consolidation. Pleural space: Unremarkable. No pneumothorax. Heart: Unremarkable. No cardiomegaly. Mediastinum: Unremarkable. Normal mediastinal contour. Bones/joints: Diffuse osteopenia throughout the visualized bones. No acute fracture. IMPRESSION: Bronchitis, which may be of infectious or inflammatory etiologies. No consolidation or pleural effusion. Electronically signed by: Shruti Melendez MD 04/19/24 01:04 AM
[2024-04-19] MEDS: DOXYCYCLINE HYCLATE 100 MG in DEXTROSE 5% MINI-B 100 ML IV STA (01:13)
[2024-04-19] MEDS: ALBUT/IPRATROP 3MG/0.5MG NEB 3 ML VIAL NEB STA ×2 (01:13→16:05)
[2024-04-19 01:37] LABS: Adenovirus PCR Not Detected (NotDetected); Bordetella parapertussis PCR Not Detected (NotDetected); Bordetella pertussis PCR Not Detected (NotDetected); Chlamydia pneumoniae PCR Not Detected (NotDetected); Coronavirus 229E PCR Not Detected (NotDetected); Coronavirus CoV-2 (COVID19)PCR Not Detected (NotDetected); Coronavirus HKU1 PCR Not Detected (NotDetected); Coronavirus NL63 PCR Not Detected (NotDetected); Coronavirus OC43PCR Not Detected (NotDetected); Human Metapneumovirus PCR Not Detected (NotDetected); Influenza A (H3) PCR DETECTED (NotDetected); Influenza B PCR Not Detected (NotDetected); Mycoplasma pneumoniae PCR Not Detected (NotDetected); Parainfluenza Virus 1 PCR Not Detected (NotDetected); Parainfluenza Virus 2 PCR Not Detected (NotDetected); Parainfluenza Virus 3 PCR Not Detected (NotDetected); Parainfluenza Virus 4 PCR Not Detected (NotDetected); Respiratory Syncytial VirusPCR Not Detected (NotDetected); Rhinovirus/Enterovirus PCR Not Detected (NotDetected)
--- NOTE | 2024-04-19 02:32 | Ultrasound Report ---
EXAM: US venous doppler LE BI CLINICAL HISTORY: leg swelling TECHNIQUE: Ultrasound examination of bilateral lower extremity veins was performed in real time and duplex. One or more of the following were performed- spectral analysis, resistive index, waveform analysis, and pulsed Doppler. COMPARISON: None. FINDINGS: Normal phasic, non-pulsatile and spontaneous flow is noted in bilateral common femoral, superficial femoral, popliteal and posterior tibial and peroneal veins. Visualized veins of both lower extremities demonstrate normal compressibility. No sonographic evidence of acute deep vein thrombosis (DVT) is detected in the visualized veins of both lower extremities. Compression and Augmentation: All evaluated veins compress fully with applied transducer pressure. Augmentation of venous flow is noted with distal compression. Additional Findings: There is a septated fluid elongated collection measuring about 6.8 x 1.9 x 2.9 cm in the left Popliteal fossa. Echogenic shadowing calcifications/oragnised hematoma within the collection measuring about 1.3 x 1.4 x 1.2 cm. IMPRESSION: Limited examination due to increased body habitus. No sonographic evidence of acute DVT detected in bilateral common femoral, superficial femoral, popliteal and posterior tibial and peroneal veins, at the time of examination. Septated collection with calcifications in the left popliteal fossa. Could be a complex Conner's cyst. Possible differential is hematoma. Clinical correlation is recommended. Disclaimer: DVT could be missed early in the disease when clot burden is minimal. For patients with moderate and high pretest probability of DVT and negative ultrasound, the [employer] clinical guidelines recommend testing with a D-dimer assay or repeat ultrasound in 5-7 days. If symptoms worsen, the Society of radiologists in ultrasound recommends repeating ultrasound even earlier. Electronically signed by Manolo Salcedo 04-19-2024 02:32 AM
[2024-04-19] MEDS: OSELTAMIVIR PHOSPHATE 75 MG CAP PO SCH (02:34)
[2024-04-19 04:46] LABS: Basophils # (auto) 0.01 K/uL (0.00-0.20); Basophils % (auto) 0.3 %; Eosinophils # (auto) 0.03 K/uL (0.00-0.50); Eosinophils % (auto) 0.8 %; Hematocrit (blood only) 38.2 % (37.0-47.0); Hemoglobin 12.9 g/dl (12.0-16.0); Immature Granulocytes # (auto) 0.01 K/uL (0.01-0.20); Immature Granulocytes % (auto) 0.3 %; Lymphocytes # (auto) 0.68 K/uL (1.20-3.40); Lymphocytes % (auto) 18.2 %; Mean Corpuscular Hemoglobin 30.9 pg (25.0-34.0); Mean Corpuscular Hgb Conc 33.8 g/dL (32.0-36.0); Mean Corpuscular Volume 91.6 fL (80.0-100.0); Mean Platelet Volume 10.5 fL (9.4-12.4); Monocytes % (auto) 18.7 %; Neutrophils # (auto) 2.31 K/uL (1.40-6.50); Neutrophils % (auto) 61.7 %; Platelet Count 158 K/uL (130-400); RDW Coefficient of Variation 13.4 % (11.5-14.5); RDW Standard Deviation 45.3 fL (36.4-46.3); Red Blood Count 4.17 M/uL (4.20-5.40); White Blood Count 3.74 K/ul (4.8-10.8)
[2024-04-19 05:04] LABS: Albumin Globulin Ratio 1.7 (0.9-2); Albumin Level 3.3 gm/dl (3.4-5.0); BUN Creatinine Ratio 31.5 (10-20); Bilirubin,Total 0.5 mg/dl (0.2-1.0); Calcium 8.1 mg/dl (8.6-10.3); Creatinine Clr Calc Pharmacy 85.1 ml/min; Globulin 1.9 gm/dl (2.5-4.0); Potassium 3.6 mmol/L (3.5-5.1); Total Protein 5.2 gm/dl (6.0-8.3)
[2024-04-19] MEDS: LEVOTHYROXINE SODIUM 175 MCG TABLET PO SCH (06:01)
--- OUTSIDE RECORDS SUMMARY | 2024-04-19 08:06 | External Medical Summary | Summary of Care ---
Author Name Unknown Organization [facility] Address [address] [place] [address] Phone [phone] Care Team Providers Care Exercise Physiology Professor Name Role Phone Juan Torres MD Primary Care Provider [phone]- [phone] Encounter Details Date Type Department Care Team (Late st Contact Info) Description 03/02/2024 [facility]phone [facility] [address] [phone] Cristina Toledo, [address] [facility] [place] [id number] Allergies Active Allergy Reactions Criticality Noted Date Comments Shine Inhibitors 09/22/2005 cough Penicillins 11/19/1998 rash Statins 11/20/2010 hives documented as of this encounter (statuses as of 03/02/2024) Medications PRESERVISION AREDS 2 PO CAPS one cap daily Active Atenolol 25 MG Oral Tablet (Tenormin)Indicati ons:HTN, goal below 140/90 take 1 tablet by mouth daily 90 Tablet 3 03/01/19 25 Active Levothyroxine Sodium 175 MCG Oral Tablet (Levoxyl)Indicatio ns:Other specified hypothyroidism take 1 tablet by mouth daily AT LEAST 30 MINUTES BEFORE BREAKFAST OR OTHER MEDICATIONS 90 Tablet 3 03/01/19 25 Active Potassium Chloride ER 10 MEQ Oral Capsule Extended ReleaseIndications :Stage 3a chronic kidney disease (HCC) take 1 capsule by mouth daily with EACH DOSE OF FUROSEMIDE 90 Capsule 3 03/01/19 25 Active Furosemide 20 MG Oral Tablet (Lasix)Indications :Lymphedema take 1 tablet by mouth daily if needed for SWELLING fluid retention or WEIGHT GAIN 90 Tablet 3 03/01/19 25 Active documented as of this encounter (statuses as of 03/02/2024) Active Problems Problem Noted Date Diagnosed Date Body mass index (BMI) of 50.0 to 59.9 in adult 0 03/01/2024 Body mass index (BMI) of 45.0 to 49.9 in adult 0 05/03/2023 Overview: Per Obesity protocol - Per Obesity protocol Stage 3a chronic kidney disease 01/01/2020 Overview: Per CKD protocol HTN, GOAL BELOW 140/90 01/14/2009 Overview (01/14/2009): Modified per HTN protocol #16. Hypothyroidism documented as of this encounter (statuses as of 03/02/2024) Resolved Problems Problem Noted Date Diagnosed Date Resolved Date Body mass index (BMI) of 50. 0 to 59.9 in adult 11/02/2022 05/06/2023 Overview: Per Obesity protocol Kidney disease, chronic, sta ge III (GFR 30-59 ml/min) 03/02/2016 01/04/2020 Overview: Per CKD protocol #1 Adenomatous colon polyp 07/25/201203/2018 Obesity, morbid (more than 1 00 lbs over ideal weight or BMI > 40) 05/21/2011 11/05/2022 Overview: Per Obesity protocol Obesity, morbid (more than 1 00 lbs over ideal weight or BMI > 40) 05/21/2009 05/21/2011 Overview (05/13/2015): Per Obesity Taxonomy ICD-10 update of inactive term Gouty arthropathy 12/06/2008 02/23/2018 Overview (11/24/2021): ICD-9 Code Update ICD-10 update of inactive term Benign neoplasm of colon 12/22/200703/2018 Overview (01/17/2008): serrated adenomatous/repeat colonoscopy in 3 yrs ADVANCE DIRECTIVE INFORMATION 10/16/2004 02/23/2018 Overview (10/16/2004): No, Advance Directive brochure given to patient at prior appointment. Dyslipidemia, goal to be determined 04/16/2004 01/25/2013 Gouty arthropathy 10/17/2002 12/06/2008 Overview (05/28/2015): ICD-9 Code Update ICD-10 update of inactive term OBESITY, UNSPECIFIED 01/19/2001 010 Overview (05/21/2009): Per Obesity Taxonomy HYPERTENSION NOS 01/14/2009 Overview (01/14/2009): Modified per HTN protocol #16. Edema 02/23/2018 documented as of this encounter (statuses as of 03/02/2024) Immunizations Name Administration Dates Next Due COVID-19 mRNA, LNP-s, No Pre serve, 2-Dose Series (Walltik) 11/21/2020,04/18/2020,03/28/2020 Pneumococcal Conjugate Vacc, 13 Valent (Prevnar) 08/06/2015 Pneumococcal Polysaccharide PPV23 (Pneumovax) 03/18/2009 Seasonal Influenza Vac., MDV , IM, 0.5 mL (Fluzone) 01/29/2014,12/15/2012,12/31/2011,01/12,12/17/2009,12/04/2008,01/09/2008 ,01/04/2006 Seasonal Influenza, PF, 6 M & above, IM , (FluLaval or Fluzone) 02/24/2019,12/17/2017,04/01/2017 Seasonal Influenza, Quadriva lent Hd (Fluzone Hd) 11/20/2020 Seasonal Influenza, Quadriva lent, No Preserve, IM 02/11/2016,02/04/2015 TD - Tetanus/Diptheria (ADULT) 04/01/2005 TDAP (age 10 and older)(Boostrix) 02/11/2016 Varicella Zoster Vaccine (Adult) 01/23/2013 Zoster Vaccine Recombinant (Shingrix) 10/22/2023 documented as of this encounter Social History Tobacco Use Types Packs/Day Years Used Date Smoking Tobacco: Never Passive Smoke Exposure: Never Smokeless Tobacco: Never Alcohol Use Standard Drinks/Week Comments Yes 0 (1 standard drink = 0.6 oz pur e alcohol) occasionally wine PHQ-2 Answer Date Recorded PHQ Adult Total Score 0 10/22/2023 Hunger Vital Sign Answer Date Recorded Within the past 12 months, y ou worried that your food would run out before you got the money to buy more. Never true 10/23/19 22 Within the past 12 months, t he food you bought just didn't last and you didn't have money to get more. 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 To continue taking medications as prescribed from yesterday. Thexrays showed no obvious fracture, but they recommend additional views, cross sectional, if willing let me know and an order can be placed documented in this encounter Plan of Treatment Upcoming Encounters Date Type Department Care Team (Late st Contact Info) Description 03/15/2024 11:00 AM EST Nurse Only Ancillary Department, Jeferson Javed [address] [phone] [place] [address] 10/24/2024 2:40 PM EDT Office Visit Family Practice, Jeferson Kaplan [address] [phone] Juan Torres MD [address] [place] [address] Health Maintenance Due Date Last Done Comments Adult Wellness Visit 2008 DXA Scan 11/04/2019 11/03/2012, 06/22, 07/07/2005, Additional history exists COVID-19 Vaccine ( season) 2023 11/21/2020, 04/18/2020, 03/28/2020 Influenza Vaccine (FLU shot) (#1) 2023 11/20/2020, 02/24/2019, 02/24/2019, Additional history exists Zoster Vaccines (3 of 3) 12/17/2023 10/22/2023, 03/2012 GFR 08/29/2024 03/01/2024, 09/24, 10/20/2022, Additional history exists CKD PHOS USE SMARTSET 65558 10/21/202409/24, 10/20/2022, 10/15/2021, Additional history exists Depression Screening 10/21/2024 10/22/2023 Albumin/Creatinine Ratio 10/25/2024 024, 10/16/2021, 02/23/2018, Additional history exists CKD HGB USE SMARTSET 72225 03/01/202503/01, 10/22/2023, 10/20/2022, Additional history exists TSH 03/01/2025 03/01/2024, 09/24, 10/20/2022, Additional history exists DTap/Tdap Vaccines (2 - Td or Tdap) 02/10/2026 02/11/2016, 04/01/2005, 06/22/1994 Hepatitis B Vaccine Completed 07/06/1985, 02/27/1985, 12/26/1984 Pneumococcal Vaccine: 50+ Years Completed 08/06/2015, 03/18/2009, 04/16/2004, Additional history exists HPV (Gardasil) Vaccine Aged Out No lo nger eligible based on patient's age to complete this topic MENINGOCOCCAL (MENACTRA/MENVEO) Aged Out No longer eligible based on patient's age to complete this topic documented as of this encounter Medical Devices Not on filedocumented as of this encounter Advance Directives Documents on File Type Date Recorded 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
--- OUTSIDE RECORDS SUMMARY | 2024-04-19 08:06 | External Medical Summary | Summary of Care ---
Author Name Unknown Organization [facility] Address [address] [facility] [place] [address] Phone [phone] Care Team Providers Care Soap Maker Name Role Phone Juan Torres MD Primary Care Provider [phone]- [phone] Encounter Details Date Type Department Care Team (Late st Contact Info) Description [facility] [address] [phone] Cristina Toledo, [address] [facility] [place] [phone] Allergies Active Allergy Reactions Criticality Noted Date [...] mRNA, LNP-s, No Pre serve, 2-Dose Series (Genero) 11/21/2020,04/18/2020,03/28/2020 Hepatitis B, 20+ yrs 07/06/1985,02/27/1985,12/26 Pneumococcal Conjugate Vacc, 13 Valent (Prevnar) 08/06/2015 Pneumococcal Polysaccharide PPV23 (Pneumovax) 03/18/2009,04/16/2004,12/11/1993 Seasonal Influenza Vac., MDV , IM, 0.5 mL (Fluzone) 01/29/2014,12/15/2012,12/31/2011,01/12,12/17/2009,12/04/2008,01/09/2008 ,01/04/2006,01/07/2001 Seasonal Influenza, PF, 6 M & above, IM , (FluLaval or Fluzone) 02/24/2019,12/17/2017,04/01/2017 Seasonal Influenza, Quadriva lent Hd (Fluzone Hd) 11/20/2020 Seasonal Influenza, Quadriva lent, No Preserve, IM 02/11/2016,02/04/2015 TD - Tetanus/Diptheria (ADULT) 04/01/2005,1994 TDAP (age 10 and older)(Boostrix) 02/11/2016 Varicella [...] encounter Miscellaneous Notes * Telephone Encounter - Shania Lloyd LPN - 03/02/2024 11:21 AM EST I called and spoke with the patient and she is aware of information from Dr. Toledo and is agreeable to more imaging. * Telephone Encounter - Cristina Toledo DO [...] Department, Jeferson Javed [address] [phone] Jeferson Nurse [address] [address] 10/24/2024 2:40 PM EDT Office Visit Family Practice, Jeferson Kaplan [address] [phone] Juan Torres MD [address] [address] Health Maintenance Due Date Last Done Comments Adult Wellness Visit 2008 DXA Scan 11/04/2019 11/03/2012, 06/22, 07/07/2005, Additional history exists COVID-19 Vaccine ( season) 2023 11/21/2020, 04/18/2020, 03/28/2020 Influenza Vaccine (FLU shot) (#1) 2023 11/20/2020, 02/24/2019, 02/24/2019, Additional history exists Zoster Vaccines (3 of 3) 12/17/2023 10/22/2023, 03/2012 GFR 08/29/2024 03/01/2024, 09/24, 10/20/2022, Additional history exists CKD PHOS USE SMARTSET 36852 10/21/202409/24, 10/20/2022, 10/15/2021, Additional history exists Depression Screening 10/21/2024 10/22/2023 Albumin/Creatinine Ratio 10/25/2024 024, 10/16/2021, 02/23/2018, Additional history exists CKD HGB USE SMARTSET 80563 03/01/202503/01, 10/22/2023, 10/20/2022, Additional history exists TSH [...] Documents on File Type Date Recorded 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
--- OUTSIDE RECORDS SUMMARY | 2024-04-19 08:06 | External Medical Summary | Summary of Care ---
Author Name Unknown Organization [facility] Address [address] [address] Phone [phone] Care Team Providers Care Punchboard Inserter Name Role Phone Juan Torres MD Primary Care Provider +1- [phone] Reason for Referral * Evaluate & Treat - Unlimited Visits (Within 10 days (routine)) - Authorized Specialty Diagnoses / Procedures Referred By Jorge landry Referred To Contact Physical Therapy / Physical Medicine And Rehab Diagnoses Generalized weakness Weakness of lower extremity, unspecified laterality Cristina Toledo DO [address] [address] Phone: tel: fax: Referral ID Status Reason Start Date Expiration Date Visits Requested Visits Authorized [id number] Authorized Specialty Services Required 03/01/2024 999 999 Question Answer Referral Priority Within 10 days (routine) Where should this appointment be scheduled? [facility] Reason for Visit * Reason Onset Date Comments Acute Pt here today du e to having fallen at home 3 times in 3 days Medication Administration 03/01/2024 Flu an d/or Pneumo Inj Encounter Details Date Type Department Care Team (Late st Contact Info) Description 03/01/2024 12:50 PM EST Office Visit [facility] Esquivel [address] [phone] Cristina Toledo DO [address] [address] Weakness of lower extremity, unspecified laterality*; Need for prophylactic vaccination and inoculation against influenza; Postmenopausal status, age-related; Risk and functional assessment; Body mass index (BMI) of 50.0 to 59.9 in adult (HCC); Stage 3a chronic kidney disease (HCC); Acquired hypothyroidism; Generalized weakness; Coccyx pain; Other specified hypothyroidism; Lymphedema; HTN, GOAL BELOW 140/90 Allergies Active Allergy Reactions Criticality Noted Date Comments Shine Inhibitors 09/22/2005 cough Penicillins 11/19/1998 rash Statins 11/20/2010 hives documented as of this encounter (statuses as of 03/01/2024) Medications PRESERVISION AREDS 2 PO CAPS one [...] GAIN 90 Tablet 3 03/01/19 25 Active Atenolol 25 MG Oral Tablet (Tenormin) take 1 tablet by mouth daily 90 Tablet 3 03/12/19 24 025 Discontin ued(Refil l) Furosemide 20 MG Oral Tablet (Lasix) take 1 tablet by mouth daily if needed for SWELLING fluid retention or WEIGHT GAIN 90 Tablet 3 03/12/19 24 025 Discontin ued(Refil l) Levothyroxine Sodium 175 MCG Oral Tablet (Levoxyl)Indicatio ns:Hypothyroidism take 1 tablet by mouth daily AT LEAST 30 MINUTES BEFORE BREAKFAST OR OTHER MEDICATIONS 90 Tablet 3 03/12/19 24 025 Discontin ued(Refil l) Potassium Chloride ER 10 MEQ Oral Capsule Extended Release take 1 capsule by mouth daily with EACH DOSE OF FUROSEMIDE 90 Capsule 3 03/12/19 24 025 Discontin ued(Refil l) Zoster Vac Recomb Adjuvanted 50 MCG/0.5ML Intramuscular Suspension Reconstituted (Shingrix)Indicati ons:Need for shingles vaccine Inject 0.5 mL into a large muscle now and repeat dose in 60 to 180 days 1 Each 1 4 4:23 PM EDT 10/22/19 24 025 Discontin ued(Patie nt preferenc e/discont inuation) documented as of this encounter (statuses as of 03/01/2024) Active Problems Problem Noted Date Diagnosed Date [...] as of this encounter (statuses as of 03/01/2024) Resolved Problems Problem Noted Date Diagnosed Date [...] as of this encounter (statuses as of 03/01/2024) Immunizations Name Administration Dates Next Due COVID-19 mRNA, LNP-s, No Pre serve, 2-Dose Series ([employer]) 11/21/2020,04/18/2020,03/28/2020 Pneumococcal Conjugate Vacc, 13 Valent (Prevnar) [...] Passive Smoke Exposure: Never Smokeless Tobacco: Never Tobacco Cessation:Counseling Given: Not Answered Alcohol Use Standard Drinks/Week Comments Yes 0 [...] Sign Reading Time Taken Comments Blood Pressure 149/91 03/01/2024 12:38 PM EST rechecked pt's blood pressure 156/83 Pulse 97 03/01/2024 12:38 PM EST Temperature 35.7 °C (96.2 °F) 03/01/2024 1 2:38 PM EST Respiratory Rate 16 03/01/2024 12:3 8 PM EST Oxygen Saturation 94% 03/01/2024 12: 38 PM EST Inhaled Oxygen Concentration - - Weight 130.2 kg (287 lb) 03/01/2024 12: 38 PM EST Height - - Body Mass Index 49.26 10/22/2023 10:44 AM EDT documented in this encounter Patient Instructions * Patient Instructions* Ese Gusman LPN - 03/01/2024 12:38 PM EST ~~PATIENT INSTRUCTIONS FOR FLU SHOT~~ Possible side effects of influenza vaccine, (flu shot), are usually mild and include: 1. Soreness or redness at injection site 2. Low grade fever 3. Body aches You may use Tylenol/Acetaminophen as needed for these symptoms. LET YOUR DOCTOR KNOW IMMEDIATELY IF YOU HAVE DIFFICULTY BREATHING OR SWALLOWING, EXPERIENCE ITCHINGOF FEET OR HANDS, HAVE SWELLING OF EYES, FACE OR INSIDE OF NOSE. Osteoporosis: Screening for Bone Loss The strength of bones is measured by their density (thickness). High bone density means bones are less likely to fracture. If you are at risk for bone loss, your healthcare provider may refer you forbone density testing. Bone Density Testing Bone density testing is safe, quick, easy, and painless. Testing can detect osteoporosis before a fracture happens. It can also predict the risk of future fractures. And testing can measure the response to treatment. There are two types of tests that you may have: •Peripheral tests are used for screening. They measure density in the finger, wrist, knee, wellington, or heel. A common peripheral test is the quantitative ultrasound (QUS). •Central tests are used for diagnosis. They measure density in the hip or spine. The main centraltest is the dual energy x-ray absorptiometry (DXA). The DXA is the standard bone density test. Who Should Be Tested? •All postmenopausal women under age 65, with one or more risk factors in addition to menopause. •All women age 65 and older. •Postmenopausal women with fractures. •Women who are thinking about treatment for osteoporosis. •Women who have been on hormone therapy for a long time. •Men or women with certain medical conditions or who are taking certain medications (such as glucocorticoids or prednisone) for a long period. Common Testing Sites Any bone can fracture, but with osteoporosis some bones fracture more easily. These include bones in the spine, wrist, shoulder, and hip. That’s why bone density testing may be done at one or more of these sites. Understanding Your Results The results of your test may seem confusing at first. Don’t be afraid to ask your provider to explain. Your bone mineral density (BMD) describes the thickness of the bone that was scanned. Your healthcare provider will compare your BMD with the BMD of young, healthy bone. The result is called a T-score. Bones remodel at different rates. So, a healthy T-score in the wrist doesn’t mean the spine is also healthy. That’s why more than one site may be scanned. © 8584-4229 Zana Gonzalez, [address] [place] [address], [place] [address]. All rights reserved. This information is not intended as a substitute for professional medical care. Always follow your healthcare professional's instructions Patient Instructions - Fall Prevention (This education [...] you get older, falls are more likely. That’s because your reaction time slows. Your muscles [...] pathway between the bedroom and the bathroom [employer]na Patient Education Copyright© 2008 - 2010 Zana except where otherwise [...] health, you may need to start slowly. Don’t let that stop you. Even small amounts of exercise can help you. Be sure to talk to yourhealthcare provider before starting any exercise program. Improve Balance Many types of exercise can help improve balance. Angel chi and yoga are good examples. Here’s another one to try. You can do [...] repeat 5 times. Switch legs. Build Strength “Resistance” exercises help build strength. You can do [...] the other arm. Build Your Staying Power “Aerobic” exercises make your heart and lungs stronger [...] at least 3 times a week. You don’t have to do 30 minutes in one [...] 10 times. Repeat this throughout the day. [employer] Patient Education Copyright© 2008 [employer] except where otherwise noted. Preventing Falls: Moving Safely Using a Cane or Walker (This education is for all patients over 65 regardless of symptoms) Keep the cane away from your feet so you don’t trip. A walking aid, such as a cane or walker, can help you stay more independent and avoid falls. Remember to keep your walking aid within easy reach when you’re in a chair or in bed. And learn how to use it safely so you don’t injure yourself. Using a Cane If you have a stronger side, hold the cane on that side. Get your balance. Move the cane and your weaker leg forward. Support your weight on both the cane and your weaker side. Step with your stronger leg. Start again from step 1. If you’re using a folding walker, be sure you know how to lock it open. Check that it’s locked open before each use. Using a Walker Roll the walker (or lift it, if you’re using one without wheels) forward about 12 [...] covers. Move slowly from room to room. Don’t baeza. Sit down to get dressed. Use a pascual pack or backpack to keep your hands free. Get help for jobs that mean climbing, even on a stepstool. [employer] Patient Education Copyright© 2008 - 2010 [employer] except where otherwise noted. Urinary Incontinence Plan [...] Wear support stockings (TEDs)if you have edema Ese Gusman LPN 03/01/2024 Kegel Exercises Kegel exercises don’t require special clothing or equipment. They’re easy to learn and simple to do. And if you do them right, no one can tell you’re doing them, so they can be done [...] of the Kegel exercises described below. When you’re doing them, try not to move your leg, buttock, or stomach muscles. While you’re urinating, try to stop the flow of urine. Start and stop it as often as you can. Contract as if you were stopping your urine stream, but do it when you’re not urinating. Tighten your rectum as if trying not to pass gas. Contract your anus, but don’t move your buttocks. Helpful Hints Do your Kegels as often as you can. The more you do them, the faster you’ll feel the results. Pick an activity you [...] a slow count to five. You probably won’t be able to hold them for thatlong at first, but keep practicing. It will get easier as your pelvic floor gets stronger. Eventually, special weights that you place in your vagina may be recommended to help make your Kegels even more effective. [employer] Patient Education Copyright© 2008 - 2010 Zana except where otherwise [...] documented in this encounter Progress Notes * Cristina Toledo, DO - 03/01/2024 1:00 PM EST Subjective: Emily Kilgore is a 83 year old female. Chief Complaint Patient presents with Acute Pt here today due to having fallen at home 3 times in 3 days Medication Administration Flu and/or Pneumo Inj HPI: 83 year old female presents today for an acute visit for overall leg weakness and 3 falls, mechanical this past week, and unable to lift herself up. Lives alone in [place]. Here today with her brother, her POA. Had hospital stay last March for generalized weakness and falls, along with fluid in her legs. Her brother reports that when she is on lasix her legs get more weak. She never has a syncopal episode. She denies any chest pain and or shortness of breath. Her brother, patient and I went thru her pills there was some confusion as to what she has been taking. She has been without the potassium she believes for a while, and she may have been skipping atenolol and taking 2 lasix. Again we are sure.But what we decided to do is start fresh with new prescriptions and to fill her pill box with new rx. She will have her brother do this. And may do in the future mail order. Having some tailbone pain after her last fall. PHM: Patient Active Problem List Diagnosis Hypothyroidism HTN, GOAL BELOW 140/90 Stage 3a chronic kidney disease Body mass index (BMI) of 45.0 to 49.9 in adult ([facility]) Body mass index (BMI) of 50.0 to 59.9 in adult ([facility]) Current Outpatient Medications Medication Sig Dispense Refill PRESERVISION AREDS 2 PO CAPS one cap daily Atenolol 25 MG Oral Tablet (Tenormin) take 1 tablet by mouth daily 90 Tablet 3 Levothyroxine Sodium 175 MCG Oral Tablet (Levoxyl) take 1 tablet by mouth daily AT LEAST 30 MINUTESBEFORE BREAKFAST OR OTHER MEDICATIONS 90 Tablet 3 Furosemide 20 MG Oral Tablet (Lasix) take 1 tablet by mouth daily if needed for SWELLING fluid retention or WEIGHT GAIN (Patient not taking: Reported on 03/01/2024) 90 Tablet 3 Potassium Chloride ER 10 MEQ Oral Capsule Extended Release take 1 capsule by mouth daily with EACH DOSE OF FUROSEMIDE (Patient not taking: Reported on 03/01/2024) 90 Capsule 3 No current facility-administered medications for this visit. Review of patient's allergies indicates: Allergen Reactions Shine Inhibitors cough Penicillins rash Statins hives Objective: BP 149/91 | Pulse 97 | Temp 96.2 °F (35.7 °C) (Infrared ) | Resp 16 | Wt 287 lb (130.2 kg) | KsO347% | BMI 49.26 kg/m² | BSA 2.43 m² Physical Exam: General: alert, healthy, and no distress Heart: regular rate & rhythm, no murmur, and no gallops Lungs: chest symmetric with normal AP diameter, no chest deformities noted, no chest wall tenderness, lungs clear to auscultation Extremities: chronic lymphedema. No pitting edema today. ASSESSMENT/PLAN: Her BP is still high, will have her return for Bp check. If still high to consider low dose norvasc. Her weakness could be deconditioned vs low potasssium. Will get BMP today. To start PT for her legweakness. Follow-up pending labs and xrays. Weakness of lower extremity, unspecified laterality (Primary) - PHYSICAL THERAPY REFERRAL OP - XR SACRUM COCCYX MINIMUM 2 VIEWS Need for prophylactic vaccination and inoculation against influenza - INFLUENZA VAC., TRIVALENT, HD, PF, 65 AND ABOVE, 0.5 ML IM (FLUZONE HD) Postmenopausal status, age-related Risk and functional assessment Body mass index (BMI) of 50.0 to 59.9 in adult (HCC) Stage 3a chronic kidney disease (HCC) - BASIC METABOLIC PANEL; Future; Expected date: 03/01/2024 - Potassium Chloride ER 10 MEQ Oral Capsule Extended Release; take 1 capsule by mouth daily with EACH DOSE OF FUROSEMIDE Acquired hypothyroidism - TSH WITH FREE T4 IF INDICATED; Future; Expected date: 03/01/2024 - HEPATIC FUNCTION PANEL; Future; Expected date: 03/01/2024 Generalized weakness - CBC; Future; Expected date: 03/01/2024 - PHYSICAL THERAPY REFERRAL OP - XR SACRUM COCCYX MINIMUM 2 VIEWS Coccyx pain - XR SACRUM COCCYX MINIMUM 2 VIEWS Hypothyroidism - Levothyroxine Sodium 175 MCG Oral Tablet (Levoxyl); take 1 tablet by mouth daily AT LEAST 30 MINUTES BEFORE BREAKFAST OR OTHER MEDICATIONS Lymphedema - Furosemide 20 MG Oral Tablet (Lasix); take 1 tablet by mouth daily if needed for SWELLING fluid retention or WEIGHT GAIN HTN, GOAL BELOW 140/90 - Atenolol 25 MG Oral Tablet (Tenormin); take 1 tablet by mouth daily Check-out note: Needs PT referral. Needs number for [facility]. [facility] order as well. LABS TODAY 2 weeks a nurse visitfor a Blood pressure check Cristina Toledo, DO Care Gaps Comprehensive Care Outreach Last Office/Telemedicine Visit: Visit date not found (in office), Visit date not found (telemedicine) Next Office Visit: 10/24/2024 Hemoglobin AIC Results: Lab Results Component Value Date/Time HEMOGLOBIN A1C - [facility] 5.7 08/11/2007 01:55 PM HEMOGLOBIN A1C - [facility] 6.0 09/23/2005 08:11 AM HEMOGLOBIN A1C - [facility] 6.1 (H) 04/15/2005 09:04 AM BP Readings from Last 1 Encounters: 03/01/24 149/91 Reviewed Health Maintenance below: Health Maintenance Topic Date Due Adult Wellness Visit Never done DXA Scan 11/04/2019 Influenza Vaccine (FLU shot) (1) 10/24/2023 COVID-19 Vaccine ( - season) 2023 Zoster Vaccines (3 of 3) 12/17/2023 GFR 04/21/2024 CKD HGB USE SMARTSET 81680 10/21/2024 CKD PHOS USE SMARTSET 33854 10/21/2024 Depression Screening 10/21/2024 TSH 10/21/2024 Albumin/Creatinine Ratio 10/25/2024 DTap/Tdap Vaccines (2 - Td or Tdap) 02/10/2026 Hepatitis B Vaccine Completed Pneumococcal Vaccine: 50+ Years Completed MENINGOCOCCAL (MENACTRA/MENVEO) Aged Out HPV (Gardasil) Vaccine Aged Out Care Gap Outreach Action Taken: Spoke to patient * Ese Gusman LPN - 03/01/2024 12:51 PM EST Dexa scan ordered today. Provider aware. Ese Gusman LPN Fall Risk Plan of Care Documentation: - Current medications reconciled Patient encouraged to: - Exercise - Provide education materials for Core strengthening - Utilize assistive/adaptive devices - Provide education materials - Avoid multifocal lenses when walking - Avoid hazards in home - Provide education materials - Maintain a regular toileting schedule Ese Gusman LPN 03/01/2024 documented in this encounter Nursing Notes * Ese Gusman LPN - 03/01/2024 12:29 PM EST Chief Complaint Patient presents with Acute Pt here today due to having fallen at home 3 times in 3 days documented in this encounter Plan of Treatment Upcoming Encounters Date Type Department Care Team (Late st Contact Info) Description 03/15/2024 11:00 AM EST Nurse Only Ancillary Department, [facility] Javed [address] [phone] Nurse [facility]eferson [address] [address] 10/24/2024 2:40 PM EDT Office Visit Family Practice, [facility] Kaplan [address] [phone] Juan Torres MD [address] [phone] Pending Results Name Type Priority Associated Diagnoses Date /Time TSH WITH FREE T4 IF INDICATED Lab Routine Acquired hypothyroidism 03/01/2024 1:46 PM EST BASIC METABOLIC PANEL Lab Routine Stage 3a chronic kidney disease (HCC) 03/01/2024 1:46 PM EST HEPATIC FUNCTION PANEL Lab Routine Acquired hypothyroidism 03/01/2024 1:46 PM EST CBC Lab Routine Generalized weakness 03/01/2024 1:46 PM EST XR SACRUM COCCYX MINIMUM 2 VIEWS Medical Imaging Routine Generalized weakness Weakness of lower extremity, unspecified laterality Coccyx pain 03/01/2024 1:59 PM EST Scheduled Orders Name Type Priority Associated Diagnoses Orde r Schedule TSH WITH FREE T4 IF INDICATED Lab Routine Acquired hypothyroidism Expected: 03/01/2024 (Approximate), Expires: 03/01/2025 BASIC METABOLIC PANEL Lab Routine Stage 3a chronic kidney disease (HCC) Expected: 03/01/2024 (Approximate), Expires: 03/01/2025 HEPATIC FUNCTION PANEL Lab Routine Acquired hypothyroidism Expected: 03/01/2024 (Approximate), Expires: 03/01/2025 CBC Lab Routine Generalized weakness Expected: 03/01/2024 (Approximate), Expires: 03/01/2025 Scheduled Referrals Name Type Priority Associated Diagnoses Orde r Schedule PHYSICAL THERAPY REFERRAL OP Referral Within 10 days (routine) Generalized weakness Weakness of lower extremity, unspecified laterality Ordered: 03/01/2024 Health Maintenance Due Date Last Done Comments Adult Wellness Visit 2008 DXA Scan 11/04/2019 11/03/2012, 06/22, 07/07/2005, Additional history exists COVID-19 Vaccine ( season) 2023 11/21/2020, 04/18/2020, 03/28/2020 Influenza Vaccine (FLU shot) (#1) 2023 11/20/2020, 02/24/2019, 02/24/2019, Additional history exists Zoster Vaccines (3 of 3) 12/17/2023 10/22/2023, 12/03/2012 GFR 04/21/2024 10/22/2023, 09/23, 10/15/2021, Additional history exists CKD HGB USE SMARTSET 69981 10/21/202410/21, 10/20/2022, 10/15/2021, Additional history exists CKD PHOS USE SMARTSET 15932 10/21/202409/24, 10/20/2022, 10/15/2021, Additional history exists Depression Screening 10/21/2024 10/22/2023 TSH 10/21/2024 10/22/2023, 09/23, 10/15/2021, Additional history exists Albumin/Creatinine Ratio 10/25/2024 024, 10/16/2021, 02/23/2018, Additional history exists DTap/Tdap Vaccines (2 - [...] as of this encounter Visit Diagnoses Diagnosis Weakness of lower extremity, unspecified laterality- Primary Need for prophylactic vaccination and inoculation against influenza Postmenopausal status, age-related Asymptomatic postmenopausal status (age-related) (natural) Risk and functional assessment Screening for unspecified condition Body mass index (BMI) of 50.0 to 59.9 in adult (HCC) Stage 3a chronic kidney disease (HCC) Acquired hypothyroidism Unspecified hypothyroidism Generalized weakness Other malaise and fatigue Coccyx pain Other disorder of coccyx Other specified hypothyroidism Lymphedema Other lymphedema HTN, GOAL BELOW 140/90 Unspecified essential hypertension documented in this encounter Advance Directives Documents on File Type Date Recorded Patient Manager Software Development Expl anation Advance Directives and Living Will 06/09/2012 ADVANCE DIRECTIVE MEDICAL POWER OF JEWELRY DESIGNER Advance Directives and Living Will 04/13/2008 LIVING WILL Care Teams Punchboard Inserter Relationship Specialty Start Date End Date Juan Torres MD [address] [address] PCP - General 04/20/02 documented as of this encounter"
--- OUTSIDE RECORDS SUMMARY | 2024-04-19 08:06 | External Medical Summary | Summary of Care ---
Author Name Unknown Organization [facility] Address [address] [address] [place] [address] Phone [phone] Care Team Providers Care Adoption Worker Name Role Phone Juan Torres MD Primary Care Provider +1- [phone] Encounter Details Date Type Department Care Team (Late st Contact Info) Description 03/02/2024 Telephone [facility] [place] [facility] [address] [phone] Ewa Fuentes, [address] [facility] [address] [id number] Allergies Active Allergy Reactions Criticality Noted Date [...] mRNA, LNP-s, No Pre serve, 2-Dose Series ([employer]) 11/21/2020,04/18/2020,03/28/2020 Hepatitis B, 20+ yrs 07/06/1985,02/27/1985,12/26 Pneumococcal [...] Encounter - Shania Lloyd LPN - 03/02/2024 1:38 PM EST Per albertina at X-ray these views must be completed through a CT and not an X-ray. Can the order be changed to a CT? Patient is aware that the additional orders will be an X-ray she can complete here in the office, once the order is placed for the CT please forward it to scheduling so the CT scan can be set up. * Addendum Note - wEa Fuentes DO - 03/02/2024 12:26 PM ESTAddended by: EWA FUENTES on: 03/02/2024 12:26 PM Modules accepted: Orders * Telephone Encounter - Ewa Fuentes DO - 03/02/2024 12:26 PM EST K re ordered with cross sectional views * Telephone Encounter - Shania Lloyd LPN - 03/02/2024 11:21 AM EST I called and spoke with the patient and she is aware of information from Dr. Fuentes and is agreeable to more imaging. * Telephone Encounter - Ewa Fuentes DO - 03/02/2024 11:04 AM EST The [...] [place] [phone] Nurse Jeferson [address] [id number] 10/24/2024 2:40 PM EDT Office Visit Family Practice, Jeferson Kaplan [address] [phone] Juan Torres MD [address] [phone] Scheduled Orders Name Type Priority Associated Diagnoses Orde r Schedule XR SACRUM COCCYX MINIMUM 2 VIEWS Medical Imaging Routine Sacral pain Ordered: 03/02/2024 Health Maintenance Due Date Last Done Comments Adult Wellness Visit 2008 DXA Scan 11/04/2019 11/03/2012, 06/22, 07/07/2005, Additional history exists COVID-19 Vaccine ( season) 2023 11/21/2020, 04/18/2020, 03/28/2020 Influenza Vaccine (FLU shot) (#1) 2023 11/20/2020, 02/24/2019, 02/24/2019, Additional history exists Zoster Vaccines (3 of 3) 12/17/2023 10/22/2023, 03/2012 GFR 08/29/2024 03/01/2024, 09/24, 10/20/2022, Additional history exists CKD PHOS USE SMARTSET 94346 10/21/202409/24, 10/20/2022, 10/15/2021, Additional history exists Depression Screening 10/21/2024 10/22/2023 Albumin/Creatinine Ratio 10/25/2024 024, 10/16/2021, 02/23/2018, Additional history exists CKD HGB USE SMARTSET 87289 03/01/202503/01, 10/22/2023, 10/20/2022, Additional history exists TSH [...] as of this encounter Visit Diagnoses Diagnosis Sacral pain- Primary Disorders of sacrum documented in this encounter Advance Directives Documents on File Type Date Recorded Patient Antenna Engineer Expl anation Advance Directives and Living Will 06/09/2012 ADVANCE DIRECTIVE MEDICAL POWER OF APPLIANCE SERVICE TECHNICIAN Advance Directives and Living Will 04/13/2008 LIVING WILL Care Teams Adoption Worker Relationship Specialty Start Date End Date Juan Torres MD [address] [id number] PCP - General 04/20/02 documented as of this encounter
--- OUTSIDE RECORDS SUMMARY | 2024-04-19 08:06 | External Medical Summary | Summary of Care ---
Author Name Unknown Organization [facility] Address [address] [facility] [place] [address] Phone [phone] Care Team Providers Care Warranty Coordinator Name Role Phone Juan Torres MD Primary Care Provider +1- [phone] Encounter Details Date Type Department Care Team (Late st Contact Info) Description 03/02/2024 Telephone [facility] Roxboromayra Kaplan [address] [address] Ewa Fuentes, [address] [facility] [place] [id number] Allergies Active Allergy Reactions Criticality Noted Date [...] mRNA, LNP-s, No Pre serve, 2-Dose Series ([employer]) 11/21/2020,04/18/2020,03/28/2020 Hepatitis B, 20+ yrs 07/06/1985,02/27/1985,12/26 Pneumococcal [...] as of this encounter Miscellaneous Notes * Addendum Note - Ewa Fuentes DO - 03/02/2024 12:26 PM ESTAddended [...] Ancillary Department, Jeferson Javed [address] [phone] Jeferson Nurse [address] [address] 10/24/2024 2:40 PM EDT Office Visit Family Practice, Jeferson Kaplan [address] [address] Juan Torres MD [address] [address] Scheduled Orders Name Type Priority Associated Diagnoses [...] Additional history exists CKD PHOS USE SMARTSET 83273 10/21/202409/24, 10/20/2022, 10/15/2021, Additional history exists Depression Screening 10/21/2024 10/22/2023 Albumin/Creatinine Ratio 10/25/2024 024, 10/16/2021, 02/23/2018, Additional history exists CKD HGB USE SMARTSET 23023 03/01/202503/01, 10/22/2023, 10/20/2022, Additional history exists TSH [...] Documents on File Type Date Recorded Patient Emergency Manager Expl anation Advance Directives and Living Will 06/09/2012 ADVANCE DIRECTIVE MEDICAL POWER OF PSYCHOLOGICAL SCIENCE PROFESSOR Advance Directives and Living Will 04/13/2008 LIVING WILL Care Teams Warranty Coordinator Relationship Specialty Start Date End Date Juan Torres MD [address] [address] PCP - General 04/20/02 documented as of this encounter
--- OUTSIDE RECORDS SUMMARY | 2024-04-19 08:07 | External Medical Summary ---
Author Name Unknown Address Unknown Organization [id number]:LABORATORY [facility] [place] - [address] [address] Laboratory Report Ordering Provider Test Date Status RACQUEL DEL ROSARIO 10/22/2023 12:14:15 Final Observation Date Value Abnormality Reference (Units ) Status MYCODE SPECIMEN-LAV 10/22/2023 12:14:15 Freezing of extracted DNA, whole blood and/or serum. Final Performing Location [facility] - [address] [place] [address]
--- OUTSIDE RECORDS SUMMARY | 2024-04-19 08:07 | External Medical Summary ---
Author Name Unknown Address Unknown Organization [id number]:LABORATORY [facility] [place] - [address] [address] Laboratory Report Ordering Provider Test Date Status GINA MCNEIL 03/01/2024 13:46:31 Final Observation Date Value Abnormality Reference (Units ) Status Albumin 03/01/2024 13:46:31 4.4 3.8-5.0 (g/dL) Final AST (Aspartate aminotransferase) 03/01/2024 13:46:31 17 10-35 (U/L) Final Alk Phos 03/01/2024 13:46:31 89 35-130 (U/L) Final ALT (Alanine aminotransferase) 03/01/2024 13:46:31 9 Below low normal 10-35 (U/L) Final Bilirubin, Total 03/01/2024 13:46:31 0.6 <=1.2 (mg/dL) Final Bilirubin, Direct 03/01/2024 13:46:31 0.2 0.0-0.3 (mg/dL) Final Protein 03/01/2024 13:46:31 6.4 6.0-8.3 (g/dL) Final Performing Location LABORATORY [facility] [place] - [address] [address]
--- OUTSIDE RECORDS SUMMARY | 2024-04-19 08:07 | External Medical Summary | Summary of Care ---
Author Name Unknown Organization [facility] Address [address] [place] [address] Phone [phone] Care Team Providers Care Automobile Upholstery Trim Installer Name Role Phone Juan Torres MD Primary Care Provider +1- [phone] Reason for Visit * Reason Onset Date Comments Advice 10/26/2023 Encounter Details Date Type Department Care Team (Late st Contact Info) Description 10/26/2023 Telephone [facility] [address] [place] [address] Juan Torres MD [address] [place] [address] Advice Allergies Active Allergy Reactions Criticality Noted Date Comments Shine Inhibitors 09/22/2005 cough Penicillins 11/19/1998 rash Statins 11/20/2010 hives documented as of this encounter (statuses as of 10/27/2023) Medications Medication Sig Dispensed Refills Start Date End Date Status PRESERVISION AREDS 2 PO CAPS one cap daily Active Atenolol 25 MG Oral Tablet (Tenormin) take 1 tablet by mouth daily 90 Tablet 3 03/12/2023 Active Furosemide 20 MG Oral Tablet (Lasix) take 1 tablet by mouth daily if needed for SWELLING fluid retention or WEIGHT GAIN 90 Tablet 3 03/12/2023 Active Levothyroxine Sodium 175 MCG Oral Tablet (Levoxyl)Indications :Hypothyroidism take 1 tablet by mouth daily AT LEAST 30 MINUTES BEFORE BREAKFAST OR OTHER MEDICATIONS 90 Tablet 3 03/12/2023 Active Potassium Chloride ER 10 MEQ Oral Capsule Extended Release take 1 capsule by mouth daily with EACH DOSE OF FUROSEMIDE 90 Capsule 3 03/12/2023 Active Additional Information Patient not taking.Reported on 10/22/2023 Zoster Vac Recomb Adjuvanted 50 MCG/0.5ML Intramuscular Suspension Reconstituted (Shingrix)Indication s:Need for shingles vaccine Inject 0.5 mL into a large muscle now and repeat dose in 60 to 180 days 1 Each 1 10/22/2023 Active documented as of this encounter (statuses as of 10/27/2023) Active Problems Problem Noted Date Diagnosed Date Body mass index (BMI) of 45.0 to 49.9 in adult 0 05/03/2023 Overview: Per Obesity protocol - Per Obesity protocol Stage 3a chronic kidney disease 01/01/2020 Overview: Per CKD protocol HTN, GOAL BELOW 140/90 01/14/2009 Overview: Modified per HTN protocol #16. Hypothyroidism documented as of this encounter (statuses as of 10/27/2023) Resolved Problems Problem Noted Date Diagnosed Date [...] as of this encounter (statuses as of 10/27/2023) Immunizations Name Administration Dates Next Due COVID-19 mRNA, LNP-s, No Pre serve, 2-Dose Series ([employer]) 11/21/2020,04/18/2020,03/28/2020 Hepatitis B, 20+ yrs 07/06/1985,02/27/1985,12/26 Pneumococcal Conjugate Vacc, 13 Valent (Prevnar) 08/06/2015 Pneumococcal Polysaccharide PPV23 (Pneumovax) 03/18/2009,04/16/2004,12/11/1993 Seasonal Influenza, PF, 6 M & above, IM , (FluLaval or Fluzone) 02/24/2019,12/17/2017,04/01/2017 Seasonal Influenza, Quadriva lent Hd (Fluzone Hd) 11/20/2020 Seasonal Influenza, Quadriva lent, No Preserve, IM 02/11/2016,02/04/2015 Seasonal Influenza, Trivalen t, (IIV3), with Preserv, (Fluzone) 01/29/2014,12/15/2012,12/31/2011,01/12,12/17/2009,12/04/2008,01/09/2008 ,01/04/2006,01/07/2001 TD - Tetanus/Diptheria (ADULT) 04/01/2005,1994 TDAP (age [...] encounter Miscellaneous Notes * Telephone Encounter - Annabella Reyes LPN - 10/27/2023 3:43 PM EDT Paperwork placed on Dr. Hernández desk for review * Telephone Encounter - Ellen Cook OSA - 10/26/2023 12:28 PM EDT Patient dropped off paperwork and placed in Dr. Torres's bin. 10/26/2023 * Telephone Encounter - Tracy Moreno OSA - 10/26/2023 11:00 AM EDT Pt calling in about the paperwork she was sent home with. Dropping paperwork off today for Dr Torres. documented in this encounter Plan of Treatment Upcoming Encounters Date Type Department Care Team (Late st Contact Info) Description 10/24/2024 2:40 PM EDT Office Visit [facility] [address] [place] [place] [phone] Juan Torres MD [address] [facility] [place] [phone] Health Maintenance Due Date Last Done Comments Adult Wellness Visit 2008 DXA Scan 11/04/2019 11/03/2012, 06/22, 07/07/2005, Additional history exists COVID-19 Vaccine ( season) 2023 11/21/2020, 04/18/2020, 03/28/2020 Influenza Vaccine (FLU shot) (#1) 2023 11/20/2020, 02/24/2019, 02/24/2019, Additional history exists Zoster Vaccines (3 of 3) 12/17/2023 10/22/2023, 03/2012 GFR 04/21/2024 10/22/2023, 09/23, 10/15/2021, Additional history exists CKD HGB USE SMARTSET 40001 10/21/202410/21, 10/20/2022, 10/15/2021, Additional history exists CKD PHOS USE SMARTSET 94724 10/21/202409/24, 10/20/2022, 10/15/2021, Additional history exists Depression Screening 10/21/2024 10/22/2023 TSH 10/21/2024 10/22/2023, 09/23, 10/15/2021, Additional history exists Albumin/Creatinine Ratio 10/25/2024 024, 10/16/2021, 02/23/2018, Additional history exists DTap/Tdap Vaccines (2 - Td or Tdap) 02/10/2026 02/11/2016, 04/01/2005, 06/22/1994 Hepatitis B Vaccine Completed 07/06/1985, 02/27/1985, 12/26/1984 Pneumococcal Vaccine: 65+ Years Completed 08/06/2015, [...] Documents on File Type Date Recorded Patient Project Controls Scheduler Expl anation Advance Directives and Living Will 06/09/2012 ADVANCE DIRECTIVE MEDICAL POWER OF LABORER PRESTRESSED CONCRETE Advance Directives and Living Will 04/13/2008 LIVING WILL Care Teams Automobile Upholstery Trim Installer Relationship Specialty Start Date End Date Juan Torres MD [address] [place] [address] PCP - General 04/20/02 documented as of this encounter
--- OUTSIDE RECORDS SUMMARY | 2024-04-19 08:07 | External Medical Summary | Summary of Care ---
Author Name Unknown Organization [facility] Address [address] [place] [address] Phone [phone] Care Team Providers Care Tower Excavator Operator Name Role Phone Juan Torres MD Primary Care Provider +1- [phone] Reason for Visit * Reason Onset Date Comments Advice 10/26/2023 Encounter Details Date Type Department Care Team (Late st Contact Info) Description 10/26/2023 Telephone [facility] [address] [place] [address] Juan Torres MD [address] [place] [address] Advice Allergies Active Allergy Reactions Criticality Noted Date Comments Shnie Inhibitors 09/22/2005 cough Penicillins 11/19/1998 rash Statins 11/20/2010 hives documented as of this encounter (statuses as of 10/26/2023) Medications Medication Sig Dispensed Refills Start Date [...] as of this encounter (statuses as of 10/26/2023) Active Problems Problem Noted Date Diagnosed Date Body mass index (BMI) of 45.0 to 49.9 in adult 0 05/03/2023 Overview: Per Obesity protocol - Per Obesity protocol Stage 3a chronic kidney disease 01/01/2020 Overview: Per CKD protocol HTN, GOAL BELOW 140/90 01/14/2009 Overview: Modified per HTN protocol #16. Hypothyroidism documented as of this encounter (statuses as of 10/26/2023) Resolved Problems Problem Noted Date Diagnosed Date [...] as of this encounter (statuses as of 10/26/2023) Immunizations Name Administration Dates Next Due COVID-19 [...] Trivalen t, (IIV3), with Preserv, (Fluzone) 01/29/2014,12/15/2012,12/31/2011,01/12,12/17/2009,12/04/2008,01/09/2008 ,01/04/2006 TD - Tetanus/Diptheria (ADULT) 04/01/2005 [...] encounter Miscellaneous Notes * Telephone Encounter - Ellen Cook OSA [...] Description 10/24/2024 2:40 PM EDT [facility] [address] [phone] Juan Torres MD [address] [facility] [address] [address] Health Maintenance Due Date Last Done Comments Adult Wellness Visit 2008 DXA Scan 11/04/2019 11/03/2012, 06/22, 07/07/2005, Additional history exists Albumin/Creatinine Ratio 10/16/2022 022, 02/23/2018, 08/11/2007 COVID-19 Vaccine ( season) 2023 11/21/2020, 04/18/2020, 03/28/2020 Influenza Vaccine (FLU shot) (#1) 2023 11/20/2020, 02/24/2019, 02/24/2019, Additional history exists Zoster Vaccines (3 of 3) 12/17/2023 10/22/2023, 1203/2012 GFR 04/21/2024 10/22/2023, 09/23, 10/15/2021, Additional history exists CKD HGB USE SMARTSET 64688 10/21/202410/21, 10/20/2022, 10/15/2021, Additional history exists CKD PHOS USE SMARTSET 76182 10/21/202409/24, 10/20/2022, 10/15/2021, Additional history exists Depression Screening 10/21/2024 10/22/2023 TSH 10/21/2024 10/22/2023, 09/23, 10/15/2021, Additional history exists DTap/Tdap Vaccines (2 - [...] Documents on File Type Date Recorded Patient Senior International Tax Manager Expl anation Advance Directives and Living Will 06/09/2012 ADVANCE DIRECTIVE MEDICAL POWER OF LOADER UNLOADER Advance Directives and Living Will 04/13/2008 LIVING WILL Care Teams Tower Excavator Operator Relationship Specialty Start Date End Date Juan Torres MD [address] [place] [address] PCP - General 04/20/02 documented as of this encounter
--- OUTSIDE RECORDS SUMMARY | 2024-04-19 08:07 | External Medical Summary | Summary of Care ---
Author Name Unknown Organization [facility] Address [address] [place] [address] Phone [phone] Care Team Providers Care Countersinker Balance Screw Hole Name Role Phone Juan Torres MD Primary Care Provider +1- [phone] Reason for Visit * Reason Comments Outpatient Testing Encounter Details Date Type Department Care Team (Late st Contact Info) Description 10/22/2023 12:10 PM EDT Laboratory [facility] [address] [place] [address] [facility] [address] [place] [address] [employer] Other*[id number]; Stage 3a chronic kidney disease (HCC); Hypothyroidism, unspecified type; Memory changes; Encounter for long-term (current) use of medications; Elevated uric acid in blood Allergies Active Allergy Reactions Criticality Noted Date Comments Shine Inhibitors 09/22/2005 cough Penicillins 11/19/1998 rash Statins 11/20/2010 hives documented as of this encounter (statuses as of 10/22/2023) Medications Medication Sig Dispensed Refills Start Date [...] Additional Information Patient not taking.Reported on 10/22/2023 documented as of this encounter (statuses as of 10/22/2023) Active Problems Problem Noted Date Diagnosed Date Body mass index (BMI) of 45.0 to 49.9 in adult 0 05/03/2023 Overview: Per Obesity protocol - Per Obesity protocol Stage 3a chronic kidney disease 01/01/2020 Overview: Per CKD protocol HTN, GOAL BELOW 140/90 01/14/2009 Overview: Modified per HTN protocol #16. Hypothyroidism documented as of this encounter (statuses as of 10/22/2023) Resolved Problems Problem Noted Date Diagnosed Date [...] as of this encounter (statuses as of 10/22/2023) Immunizations Name Administration Dates Next Due COVID-19 mRNA, LNP-s, No Pre serve, 2-Dose Series ([employer]) 11/21/2020,04/18/2020,03/28/2020 Pneumococcal Conjugate Vacc, 13 Valent (Prevnar) [...] Description 10/24/2024 2:40 PM EDT Office Visit [facility] [address] [place] [phone] Juan Torres MD [address] [place] [address] Pending Results Name Type Priority Associated Diagnoses Date /Time MYCODE INITIAL ADULT Lab Routine MyCode Research Other*[id number] 10/22/2023 12:14 PM EDT RENAL FUNCTION PANEL Lab Routine Stage 3a chronic kidney disease (HCC) 10/22/2023 12:14 PM EDT TSH WITH FREE T4 IF INDICATED Lab Routine Hypothyroidism, unspecified type 10/22/2023 12:14 PM EDT VITAMIN B12 Lab Routine Memory changes Encounter for long-term (current) use of medications 10/22/2023 12:14 PM EDT CBC Lab Routine Stage 3a chronic kidney disease (HCC) Memory changes Encounter for long-term (current) use of medications 10/22/2023 12:14 PM EDT URIC ACID Lab Routine Elevated uric acid in blood 10/22/2023 12:14 PM EDT MYCODE INITIAL ADULT-PINK Lab Routine [employer] [facility] Other*[id number] 10/22/2023 12:14 PM EDT MYCODE SST1 Lab Routine [employer] Research Other*[id number] 10/22/2023 12:14 PM EDT MYCODE SST2 Lab Routine MyCode Research Other*[id number] 10/22/2023 12:14 PM EDT Health Maintenance Due Date Last Done Comments Adult Wellness Visit 2008 DXA Scan 11/04/2019 11/03/2012, 06/22, 07/07/2005, Additional history exists Albumin/Creatinine Ratio 10/16/2022 022, 02/23/2018, 08/11/2007 COVID-19 Vaccine ( season) 2022 11/21/2020, 04/18/2020, 03/28/2020 GFR 04/22/2023 10/20/2022, 09/23, 07/09/2020, Additional history exists CKD HGB USE SMARTSET 31342 10/21/202310/20, 10/15/2021, 07/09/2020, Additional history exists CKD PHOS USE SMARTSET 84644 10/21/202309/23, 10/15/2021, 07/09/2020, Additional history exists TSH 10/21/2023 10/20/2022, 09/23, 07/09/2020, Additional history exists Influenza Vaccine (FLU shot) (#1) 2023 11/20/2020, 02/24/2019, 02/24/2019, Additional history exists Zoster Vaccines (3 of 3) 12/17/2023 10/22/2023, 12/03/2012 Depression Screening 10/21/2024 10/22/2023 DTap/Tdap Vaccines (2 - Td or Tdap) [...] as of this encounter Visit Diagnoses Diagnosis MyCode Research Other*[id number] Stage 3a chronic kidney disease (HCC) Hypothyroidism, unspecified type Memory changes Memory loss Encounter for long-term (current) use of medications Encounter for long-term (current) use of other medications Elevated uric acid in blood Other abnormal blood chemistry documented in this encounter Advance Directives Documents on File Type Date Recorded Patient Bus Info Consultant Expl anation Advance Directives and Living Will 06/09/2012 ADVANCE DIRECTIVE MEDICAL POWER OF MANAGER FIBER Advance Directives and Living Will 04/13/2008 LIVING WILL Care Teams Countersinker Balance Screw Hole Relationship Specialty Start Date End Date Juan Torres MD [address] [place], [place] [phone] PCP - General 04/20/02 documented as of this encounter
--- OUTSIDE RECORDS SUMMARY | 2024-04-19 08:07 | External Medical Summary ---
Author Name Unknown Address Unknown Organization [id number]:LABORATORY [facility] [place] - [address] [address] Laboratory Report Ordering Provider Test Date Status HEAVEN OLVERA 10/22/2023 12:14:15 Final Observation Date Value Abnormality Reference (Units ) Status Uric Acid 10/22/2023 12:14:15 5.9 Above high normal 2. 4-5.7 (mg/dL) Final Performing Location LABORATORY [facility] [place] - [address] [place] [address]
--- OUTSIDE RECORDS SUMMARY | 2024-04-19 08:07 | External Medical Summary ---
Author Name Unknown Address Unknown Organization [id number]:LABORATORY [facility] [place] - [address] [address] Laboratory Report Ordering Provider Test Date Status RACQUEL DEL ROSARIO 10/22/2023 12:14:15 Final Observation Date Value Abnormality Reference (Units ) Status MYCODE SPECIMEN-SST 10/22/2023 12:14:15 Freezing of extracted DNA, whole blood and/or serum. Final Performing Location [facility] - [address] [place] [address]
--- OUTSIDE RECORDS SUMMARY | 2024-04-19 08:07 | External Medical Summary | Summary of Care ---
Author Name Unknown Organization [facility] Address [address] [place] [address] Phone [phone] Care Team Providers Care Supply Planner Name Role Phone Juan Torres MD Primary Care Provider +1- [phone] Encounter Details Date Type Department Care Team (Late st Contact Info) Description 11/01/2023 Orders Only Outcomes Research Department [address] [place] [address] Cee Lamar CHRA [facility]COutfittery Research Other*[id number] Allergies Active Allergy Reactions Criticality Noted Date Comments Shine Inhibitors 09/22/2005 cough Penicillins 11/19/1998 rash Statins 11/20/2010 hives documented as of this encounter (statuses as of 11/01/2023) Medications Medication Sig Dispensed Refills Start Date [...] as of this encounter (statuses as of 11/01/2023) Active Problems Problem Noted Date Diagnosed Date Body mass index (BMI) of 45.0 to 49.9 in adult 0 05/03/2023 Overview: Per Obesity protocol - Per Obesity protocol Stage 3a chronic kidney disease 01/01/2020 Overview: Per CKD protocol HTN, GOAL BELOW 140/90 01/14/2009 Overview: Modified per HTN protocol #16. Hypothyroidism documented as of this encounter (statuses as of 11/01/2023) Resolved Problems Problem Noted Date Diagnosed Date [...] as of this encounter (statuses as of 11/01/2023) Immunizations Name Administration Dates Next Due COVID-19 [...] Description 10/24/2024 2:40 PM EDT Office Visit [facility] [address] [place] [address] Juan Torres MD [address] [place] [address] Scheduled Orders Name Type Priority Associated Diagnoses Orde r Schedule MYCODE SUBSEQUENT ADULT Lab Routine MyCode Research Other*[id number] Every 6 Months for 2 Occurrences starting 11/01/2023 until 11/20/2024 Health Maintenance Due Date Last Done Comments Adult Wellness Visit 2008 DXA Scan 11/04/2019 11/03/2012, 06/22, 07/07/2005, Additional history exists COVID-19 Vaccine ( season) 2023 11/21/2020, 04/18/2020, 03/28/2020 Influenza Vaccine (FLU shot) (#1) 2023 11/20/2020, 02/24/2019, 02/24/2019, Additional history exists Zoster Vaccines (3 of 3) 12/17/2023 10/22/2023, 03/2012 GFR 04/21/2024 10/22/2023, 09/23, 10/15/2021, Additional history exists CKD HGB USE SMARTSET 56813 10/21/202410/21, 10/20/2022, 10/15/2021, Additional history exists CKD PHOS USE SMARTSET 17002 10/21/2024 08, 10/20/2022, 10/15/2021, Additional history exists Depression Screening [...] this encounter Visit Diagnoses Diagnosis MyCode Research Other*[id number] documented in this encounter Advance Directives Documents on File Type Date Recorded Patient Staple Side Laster Expl anation Advance Directives and Living Will 06/09/2012 ADVANCE DIRECTIVE MEDICAL POWER OF CLIN ASST Advance Directives and Living Will 04/13/2008 LIVING WILL Care Teams Supply Planner Relationship Specialty Start Date End Date Juan Torres MD [address] [place] [address] PCP - General 04/20/02 documented as of this encounter
--- OUTSIDE RECORDS SUMMARY | 2024-04-19 08:07 | External Medical Summary ---
Author Name Unknown Address Unknown Organization K01:[facility] - [address] [place] [address] Laboratory Report Ordering Provider Test Date Status HEAVEN OLVERA 10/22/2023 12:14:15 Final Observation Date Value Abnormality Reference (Units ) Status T4, Free 10/22/2023 12:14:15 1.3 0.9-1.7 (n g/dL) Final Performing Location [facility] - [address] [address]
--- OUTSIDE RECORDS SUMMARY | 2024-04-19 08:07 | External Medical Summary ---
Author Name Unknown Address Unknown Organization [id number]:LABORATORY [facility] [place] - [address] [address] Laboratory Report Ordering Provider Test Date Status HEAVEN OLVERA 10/22/2023 12:14:15 Final Observation Date Value Abnormality Reference (Units ) Status Vitamin B12 10/22/2023 12:14:15 192 Below low normal 2 32-1245 (pg/mL) Final Performing Location LAB[facility]ATORY [facility] - [address] [address]
--- OUTSIDE RECORDS SUMMARY | 2024-04-19 08:07 | External Medical Summary ---
Author Name Unknown Address Unknown Organization K01:LABORATORY [facility] [place] - [address] [facility] [address] Laboratory Report Ordering Provider Test Date Status GINA MCNEIL 03/01/2024 13:46:31 Final Observation Date Value Abnormality Reference (Units ) Status WBC, Total 03/01/2024 13:46:31 6.92 4.00-10.80 (K/uL) Final RBC 03/01/2024 13:46:31 4.69 3.85-5.15 (M/uL) Final Hemoglobin 03/01/2024 13:46:31 15.0 12.0-15.3 (g/dL) Final HCT 03/01/2024 13:46:31 46.3 Above high normal 36.0-45.2 (%) Final MCV 03/01/2024 13:46:31 98.7 81.5-97.5 (fL) Final MCH 03/01/2024 13:46:31 32.0 27.0-34.0 (pg) Final MCHC 03/01/2024 13:46:31 32.4 32.0-36.0 (g/dL) Final RDW 03/01/2024 13:46:31 13.8 11.5-15.5 (%) Final Platelets 03/01/2024 13:46:31 282 140-400 (K/uL) Final MPV 03/01/2024 13:46:31 11.1 6.6-11.1 (fL) Final Nucleated erythrocytes/100 leukocytes [Ratio] in Blood by Automated count 03/01/2024 13:46:31 0 <=0 (/100 WBCs) Final Performing Location [facility] - [address] [facility] [address]
--- OUTSIDE RECORDS SUMMARY | 2024-04-19 08:07 | External Medical Summary ---
Author Name Unknown Address Unknown Organization [id number]:LABORATORY [facility] [place] - [facility] [address] [facility] [address] Laboratory Report Ordering Provider Test Date Status HEAVEN OLVERA 10/22/2023 12:14:15 Final Observation Date Value Abnormality Reference (Units ) Status WBC, Total 10/22/2023 12:14:15 7.64 4.00-10.80 (K/uL) Final RBC 10/22/2023 12:14:15 4.41 3.85-5.15 (M/uL) Final Hemoglobin 10/22/2023 12:14:15 14.0 12.0-15.3 (g/dL) Final HCT 10/22/2023 12:14:15 43.5 36.0-45.2 (%) Final MCV 10/22/2023 12:14:15 98.6 81.5-97.5 (fL) Final MCH 10/22/2023 12:14:15 31.7 27.0-34.0 (pg) Final MCHC 10/22/2023 12:14:15 32.2 32.0-36.0 (g/dL) Final RDW 10/22/2023 12:14:15 14.4 11.5-15.5 (%) Final Platelets 10/22/2023 12:14:15 243 140-400 (K/uL) Final MPV 10/22/2023 12:14:15 11.3 6.6-11.1 (fL) Final Nucleated erythrocytes/100 leukocytes [Ratio] in Blood by Automated count 10/22/2023 12:14:15 0 <=0 (/100 WBCs) Final Performing Location LABORATORY [facility] [place] - [address] [place] [address]
--- OUTSIDE RECORDS SUMMARY | 2024-04-19 08:07 | External Medical Summary | Summary of Care ---
Author Name Unknown Organization [facility] Address [address] [place] [address] Phone [phone] Care Team Providers Care Desktop Support Specialist Name Role Phone Juan Torres MD Primary Care Provider [phone]- [phone] Reason for Visit * Reason Onset Date Comments MyCode Consent 10/22/2023 Encounter Details Date Type Department Care Team (Late st Contact Info) Description 10/22/2023 Orders Only Outcomes Research Department [address] [place] [address] María Corrales CHRA MyCode Research Other*[id number]* Allergies Active Allergy Reactions Criticality Noted Date [...] OF FUROSEMIDE 90 Capsule 3 03/12/2023 Active documented as of this encounter (statuses [...] on file documented as of this encounter Progress Notes * María Corrales CHRA - 10/22/2023 10:42 AM EDT MyCode Consent Documentation Emily Kilgore provided consent/authorization to participate in the MyCode Project. documented in this encounter Plan of Treatment Scheduled Orders Name Type Priority Associated Diagnoses Orde r Schedule MYCODE INITIAL ADULT Lab Routine MyCode Research Other*[id number] Expected: 10/22/2023 (Approximate), Expires: 11/10/2024 Health Maintenance Due Date Last Done Comments Adult Wellness Visit 2008 Zoster Vaccines (2 of 3) 03/20/2013 01/23/2013 DXA Scan 11/04/2019 11/03/2012, 06/22, 07/07/2005, Additional history exists Albumin/Creatinine Ratio 10/16/2022 022, 02/23/2018, 08/11/2007 COVID-19 Vaccine ( season) 2022 11/21/2020, 04/18/2020, 03/28/2020 GFR 04/22/2023 10/20/2022, 09/23, 07/09/2020, Additional history exists CKD HGB USE SMARTSET 63907 10/21/202310/20, 10/15/2021, 07/09/2020, Additional history exists CKD PHOS USE SMARTSET 94312 10/21/202309/23, 10/15/2021, 07/09/2020, Additional history exists TSH 10/21/2023 10/20/2022, 09/23, 07/09/2020, Additional history exists Influenza Vaccine (FLU shot) (#1) 2023 11/20/2020, 02/24/2019, 02/24/2019, Additional history exists Depression Screening 10/21/2024 10/22/2023, 10/23/19 22 DTap/Tdap Vaccines (2 - Td or Tdap) [...] this encounter Visit Diagnoses Diagnosis MyCode Research Other*[id number]- Primary documented in this encounter Advance Directives Documents on File Type Date 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
--- OUTSIDE RECORDS SUMMARY | 2024-04-19 08:07 | External Medical Summary | Summary of Care ---
Author Name Unknown Organization [facility] Address [address] [place] [address] Phone [phone] Care Team Providers Care Dupligraph Operator Name Role Phone Juan Torres MD Primary Care Provider [phone]- [phone] Reason for Visit * Reason Comments Outpatient Testing Encounter Details Date Type Department Care Team (Late st Contact Info) Description 03/01/2024 1:40 PM EST [facility] [place] [facility] [address] [facility] [place] [address] [place] Laboratory [address] [place] [address] Acquired hypothyroidism; Stage 3a chronic kidney disease (HCC); Generalized weakness Allergies Active Allergy Reactions Criticality Noted Date Comments Shine Inhibitors 09/22/2005 cough Penicillins 11/19/1998 rash Statins 11/20/2010 hives documented as of this encounter (statuses as of 03/01/2024) Medications PRESERVISION AREDS 2 PO CAPS one cap daily Active Atenolol 25 MG Oral Tablet (Tenormin)Indic ations:HTN, goal below 140/90 take 1 tablet by mouth daily 90 Tablet 3 5 Active Levothyroxine Sodium 175 MCG Oral Tablet (Levoxyl)Indica tions:Hypothyro idism take 1 tablet by mouth daily AT LEAST 30 MINUTES BEFORE BREAKFAST OR OTHER MEDICATIONS 90 Tablet 3 5 Active Potassium Chloride ER 10 MEQ Oral Capsule Extended ReleaseIndicati ons:Stage 3a chronic kidney disease (HCC) take 1 capsule by mouth daily with EACH DOSE OF FUROSEMIDE 90 Capsule 3 5 Active Furosemide 20 MG Oral Tablet (Lasix)Indicati ons:Lymphedema take 1 tablet by mouth daily if needed for SWELLING fluid retention or WEIGHT GAIN 90 Tablet 3 5 Active documented as of this encounter (statuses [...] 11:00 AM EST Nurse Only Ancillary Department, [place] [phone] [place] [address] 10/24/2024 2:40 PM EDT Office Visit Family [facility], [place] [address] [phone] Juan Torres MD [address] [id number] Pending Results Name Type Priority Associated Diagnoses Date /Time TSH WITH FREE T4 IF INDICATED Lab Routine Acquired hypothyroidism 03/01/2024 1:46 PM EST BASIC METABOLIC PANEL Lab Routine Stage 3a chronic kidney disease (HCC) 03/01/2024 1:46 PM EST HEPATIC FUNCTION PANEL Lab Routine Acquired hypothyroidism 03/01/2024 1:46 PM EST CBC Lab Routine Generalized weakness 03/01/2024 1:46 PM EST Health Maintenance Due Date Last Done Comments Adult Wellness Visit 2008 DXA Scan 11/04/2019 11/03/2012, 06/22, 07/07/2005, Additional history exists COVID-19 Vaccine ( season) 2023 11/21/2020, 04/18/2020, 03/28/2020 Influenza Vaccine (FLU shot) (#1) 2023 11/20/2020, 02/24/2019, 02/24/2019, Additional history exists Zoster Vaccines (3 of 3) 12/17/2023 10/22/2023, 03/2012 GFR 04/21/2024 10/22/2023, 09/23, 10/15/2021, Additional history exists CKD HGB USE SMARTSET 19089 10/21/202410/21, 10/20/2022, 10/15/2021, Additional history exists CKD PHOS USE SMARTSET 79169 10/21/202409/24, 10/20/2022, 10/15/2021, Additional history exists Depression [...] as of this encounter Visit Diagnoses Diagnosis Acquired hypothyroidism Unspecified hypothyroidism Stage 3a chronic kidney disease (HCC) Generalized weakness Other malaise and fatigue documented in this encounter Advance Directives Documents on File Type Date Recorded Patient [employer] Expl anation Advance Directives and Living Will 06/09/2012 ADVANCE DIRECTIVE MEDICAL POWER OF ARTIFICIAL BREAST FABRICATOR Advance Directives and Living Will 04/13/2008 LIVING WILL Care Teams Dupligraph Operator Relationship Specialty Start Date End Date Juan Torres MD [address] [facility] [place] [address] PCP - General 04/20/02 documented as of this encounter
--- OUTSIDE RECORDS SUMMARY | 2024-04-19 08:07 | External Medical Summary ---
Author Name Unknown Address Unknown Organization K01:LABORATORY [facility] [place] - [address] [place] [address] Laboratory Report Ordering Provider Test Date Status RACQUEL DEL ROSARIO 10/22/2023 12:14:15 Final Observation Date Value Abnormality Reference (Units ) Status MYCODE SPECIMEN-SST 10/22/2023 12:14:15 Freezing of extracted DNA, whole blood and/or serum. Final Performing Location LABORATORY C - [address] [place] [address]
--- OUTSIDE RECORDS SUMMARY | 2024-04-19 08:07 | External Medical Summary ---
Author Name Unknown Address Unknown Organization [id number]:LABORATORY [facility] [place] - [address] [place] [address] Laboratory Report Ordering Provider Test Date Status HEAVEN OLVERA 10/22/2023 12:14:15 Final Observation Date Value Abnormality Reference (Units ) Status TSH 10/22/2023 12:14:15 4.36 Above high normal 0. 27-4.20 (uIU/mL) Final Performing Location LAB[facility] [place] - [address] [place] [address]
--- OUTSIDE RECORDS SUMMARY | 2024-04-19 08:07 | External Medical Summary | Summary of Care ---
Author Name Unknown Organization [facility] Address [address] [place] [address] Phone [phone] Care Team Providers Care Forklift Material Handler Name Role Phone Juan Torres MD Primary Care Provider +1- [phone] Reason for Visit * Reason Comments Physical-Exam Patient is here toda y for a yearly exam.Patient states no concerns. Encounter Details Date Type Department Care Team (Late st Contact Info) Description 10/22/2023 10:40 AM EDT [facility] [address] [place] [address] Juan Torres MD [address] [place] [address] Stage 3a chronic kidney disease (HCC)*; Need for shingles vaccine; Memory changes; Risk and functional assessment; Hypothyroidism, unspecified type; Elevated uric acid in blood; Encounter for long-term (current) use of medications; HTN, GOAL BELOW 140/90 Allergies Active Allergy Reactions Criticality Noted Date Comments Shine Inhibitors 09/22/2005 cough Penicillins 11/19/1998 rash Statins 11/20/2010 hives documented as of this encounter (statuses as of 11/08/2023) Medications Medication Sig Dispensed Refills Start Date [...] 180 days 1 Each 1 10/22/2023 Active Allopurinol 300 MG Oral Tablet (Zyloprim) Discontinue d(Medicatio n List Clean Up) documented as of this encounter (statuses as of 11/08/2023) Active Problems Problem Noted Date Diagnosed Date Body mass index (BMI) of 45.0 to 49.9 in adult 0 05/03/2023 Overview: Per Obesity protocol - Per Obesity protocol Stage 3a chronic kidney disease 01/01/2020 Overview: Per CKD protocol HTN, GOAL BELOW 140/90 01/14/2009 Overview: Modified per HTN protocol #16. Hypothyroidism documented as of this encounter (statuses as of 11/08/2023) Resolved Problems Problem Noted Date Diagnosed Date [...] as of this encounter (statuses as of 11/08/2023) Immunizations Name Administration Dates Next Due COVID-19 mRNA, LNP-s, No Pre serve, 2-Dose Series (GTxcel) 11/21/2020,04/18/2020,03/28/2020 Pneumococcal Conjugate Vacc, 13 Valent (Prevnar) [...] Sign Reading Time Taken Comments Blood Pressure 136/84 10/22/2023 10:44 AM EDT Pulse 106 10/22/2023 10:44 AM EDT Temperature 36.1 °C (96.9 °F) 10/22/2023 1 0:44 AM EDT Respiratory Rate 16 10/22/2023 10:4 4 AM EDT Oxygen Saturation 98% 10/22/2023 10: 44 AM EDT Inhaled Oxygen Concentration - - Weight 133.2 kg (293 lb 9.6 oz) 024 10:44 AM EDT Height 162.6 cm (5' 4") 10/22/2023 10:4 4 AM EDT Body Mass Index 50.4 10/22/2023 10:44 AM EDT documented in this encounter Progress Notes * Juan Torres MD - 11/08/2023 10:07 PM EDT Subjective: Emily Kilgore is a 83 year old female here today for Chief Complaint Patient presents with Physical-Exam Patient is here today for a yearly exam. Patient states no concerns. Here for routine yearly exam. Tolerating current meds. She has noticed some increased problems withmemory. Agreeable eto having labs updated today. Denies chest pain, shortness of breath, cough, nausea, vomiting, abd pain, dysuria, urinary frequency, nocturia, fever, melena, hematochezia, peripheral edema. 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/repeat colonoscopy in 3 yrs Edema HTN, goal to be determined Hypothyroidism Osteoarthrosis, unspecified whether generalized or localized, other specified sites Past Surgical History: Procedure Laterality Date COLONOSCOPY 08/04/12 repeat 5 years COLONOSCOPY THRU STOMA, W/BIOPSY 12/22/07 serrated adenomatous/repeat in 3 yrs COLPOSCPY CERVIX W/BX AND EC Colposcopy,Bx Cervix/Endocerv Curr GENITAL SURGERY PROCEDURE NEC 1981 Genital Surg Proc, Female Unlisted uterine reconstruction [...] tablet by mouth daily 90 Tablet 3 Furosemide 20 MG Oral Tablet (Lasix) take 1 tablet by mouth daily if needed for SWELLING fluid retention or WEIGHT GAIN 90 Tablet 3 Levothyroxine Sodium 175 MCG Oral Tablet (Levoxyl) take 1 tablet by mouth daily AT LEAST 30 MINUTESBEFORE BREAKFAST OR OTHER MEDICATIONS 90 Tablet 3 Zoster Vac Recomb Adjuvanted 50 MCG/0.5ML Intramuscular Suspension Reconstituted (Shingrix) Inject 0.5 mL into a large muscle now and repeat dose in 60 to 180 days 1 Each 1 Potassium Chloride ER 10 MEQ Oral Capsule Extended Release take 1 capsule by mouth daily with EACH DOSE OF FUROSEMIDE (Patient not taking: Reported on 10/22/2023) 90 Capsule 3 No current facility-administered medications for this visit. Objective: BP 136/84 | Pulse 106 | Temp 36.1 °C (96.9 °F) (Tympanic) | Resp 16 | Ht 1.626 m (5' 4") | Wt 133.2 kg (293 lb 9.6 oz) | SpO2 98% | BMI 50.40 kg/m² | BSA 2.45 m² GEN: NAD HEENT: Benign NECK: Supple with no LAD, TM, JVD CHEST: CTA B CV: RRR ABD: Soft, NT/ND, No HSM, NABS EXT: No c,c,e Assessment and Plan: Stage 3a chronic kidney disease (HCC) (Primary) - ALBUMIN / CREATININE RATIO, URINE; Future; Expected date: 10/22/2023 - RENAL FUNCTION PANEL; Future; Expected date: 10/22/2023 - CBC; Future; Expected date: 10/22/2023 - PHOSPHORUS; Future; Expected date: 10/22/2023 Need for shingles vaccine - ZOSTER VACCINE RECOMB, 2 DOSE, IM (SHINGRIX) - Zoster Vac Recomb Adjuvanted 50 MCG/0.5ML Intramuscular Suspension Reconstituted (Shingrix); Inject 0.5 mL into a large muscle now and repeat dose in 60 to 180 days Memory changes - VITAMIN B12; Future; Expected date: 10/22/2023 - CBC; Future; Expected date: 10/22/2023 Risk and functional assessment Hypothyroidism, unspecified type - TSH WITH FREE T4 IF INDICATED; Future; Expected date: 10/22/2023 Elevated uric acid in blood - URIC ACID; Future; Expected date: 10/22/2023 Encounter for long-term (current) use of medications - VITAMIN B12; Future; Expected date: 10/22/2023 - CBC; Future; Expected date: 10/22/2023 HTN, GOAL BELOW 140/90 Follow Up: Return in about 1 year (around 10/21/2024) for cpe. | For: cpe 30 min with pt and chart review Juan Torres MD documented in this encounter Nursing Notes * Jagruti Colon, BRITANY ASSIST - 10/22/2023 11:54 AM EDT Pre-Administration Time Out Procedure Performed: Yes Patient Identified (Ask Name/Date of ): Yes Does the patient have a fever greater than 101 degrees today? No Patient allergic to latex? No Has the patient ever fainted after receiving an injection? No VFC Stock: No Immunization(s) verified: Yes, Immunization Name: Shingrix, VIS Sheet(s) given: Yes Verified Side and Site: Yes Verified Shot(s) with Parent(s)/Patient: Yes * Jagruti Colon MED ASSIST - 10/22/2023 10:49 AM EDT The patient has been properly identified by confirmation of name and date of . Chief Complaint Patient presents with Physical-Exam Patient is here today for a yearly exam. Patient states no concerns. documented in this encounter Plan of Treatment Upcoming Encounters Date Type Department Care Team (Late st Contact Info) Description 10/24/2024 2:40 PM EDT Office Visit [facility] [address] [place] [address] Juan Torres MD [address] [place] [address] Health Maintenance Due Date Last Done Comments Adult Wellness Visit 2008 DXA Scan 11/04/2019 11/03/2012, 06/22, 07/07/2005, Additional history exists COVID-19 Vaccine ( season) 2023 11/21/2020, 04/18/2020, 03/28/2020 Influenza Vaccine (FLU shot) (#1) 2023 11/20/2020, 02/24/2019, 02/24/2019, Additional history exists Zoster Vaccines (3 of 3) 12/17/2023 10/22/2023, 12/03/2012 GFR 04/21/2024 10/22/2023, 09/23, 10/15/2021, Additional history exists CKD HGB USE SMARTSET 70378 10/21/202410/21, 10/20/2022, 10/15/2021, Additional history exists CKD PHOS USE SMARTSET 41112 10/21/2024 08/3 , 10/20/2022, 10/15/2021, Additional history exists Depression Screening [...] Not on filedocumented as of this encounter Results * ALBUMIN / CREATININE RATIO, URINE (10/26/2023 12:38 PM EDT) Albumin, Random Urine <1.20 mg/dL 10/26/2023 11:45 PM EDT [facility] [place] Creatinine, Random Urine 21 mg/dL 10/26/2023 11:45 PM EDT [facility] Albumin / Creatinine Ratio, Urine Uninterpretable Albumin/Creatinine ratio due to very low albumin and creatinine values. <30 mg/g Creat 10/26/2023 11:45 PM EDT [facility] Urine Urine specimen / Unknown Non-blood Collection / Unknown 10/26/2023 12:38 PM EDT 10/26/2023 12:38 PM EDT Narrative LABORATORY [facility] - 10/26/2023 11:45 PM EDT Normal: <30 mg/g creatinine High: 30-300 mg/g creatinine Very High: >300 mg/g creatinine Nephrotic: >2200 mg/g creatinine Juan Torres MD LAB URINE ORDERABL ES Performing Organization Address [facility]/ZIP Co de Phone Number [facility] [address] [place] [address] * (ABNORMAL) URIC ACID (10/22/2023 12:14 PM EDT) Uric Acid 5.9(H) 2.4 - 5.7 mg/dL 10/23/2023 6:33 AM EDT [facility] Blood Venous blood specimen / Unknown Venipuncture / Unknown 10/22/2023 12:14 PM EDT 10/22/2023 12:14 PM EDT Juan Torres MD LAB BLOOD ORDERABL ES Performing Organization Address [facility] Co de Phone Number [facility] [address] [place] [address] * CBC (10/22/2023 12:14 PM EDT) WBC 7.64 4.00 - 10.80 K/uL 10/23/2023 12:21 AM EDT [facility] RBC 4.41 3.85 - 5.15 M/uL 10/23/2023 12:21 AM EDT [facility] HGB 14.0 12.0 - 15.3 g/dL 10/23/2023 12:21 AM EDT [facility] HCT 43.5 36.0 - 45.2 % 10/23/2023 12:21 AM EDT [facility] MCV 98.6 81.5 - 97.5 fL 10/23/2023 12:21 AM EDT [facility] MCH 31.7 27.0 - 34.0 pg 10/23/2023 12:21 AM EDT [facility] MCHC 32.2 32.0 - 36.0 g/dL 10/23/2023 12:21 AM EDT [facility] RDW 14.4 11.5 - 15.5 % 10/23/2023 12:21 AM EDT LAB[facility] PLT 243 140 - 400 K/uL 10/23/2023 12:21 AM EDT [facility] MPV 11.3 6.6 - 11.1 fL 10/23/2023 12:21 AM EDT [facility] nRBCs 0 <=0 /100 WBCs 10/23/2023 12:21 AM EDT LABORATORY [facility] Blood Venous blood specimen / Unknown Venipuncture / Unknown 10/22/2023 12:14 PM EDT 10/22/2023 12:14 PM EDT Juan Torres MD LAB BLOOD ORDERABL ES Performing Organization Address [facility]/ZIP Co de Phone Number [facility] [address] [place] [address] * (ABNORMAL) VITAMIN B12 (10/22/2023 12:14 PM EDT) Vitamin B12 192(L) 232 - 1,245 pg/mL 10/23/2023 10:12 AM EDT LAB[facility] Blood Venous blood specimen / Unknown Venipuncture / Unknown 10/22/2023 12:14 PM EDT 10/22/2023 12:14 PM EDT Juan Torres MD LAB BLOOD ORDERABL ES Performing Organization Address [facility] Co de Phone Number [facility] [address] [place] [address] * (ABNORMAL) TSH WITH FREE T4 IF INDICATED (10/22/2023 12:14 PM EDT) TSH 4.36(H) 0.27 - 4.20 uIU/mL 10/23/2023 10:12 AM EDT [facility] Blood Venous blood specimen / Unknown Venipuncture / Unknown 10/22/2023 12:14 PM EDT 10/22/2023 12:14 PM EDT Juan Torres MD LAB BLOOD ORDERABL ES Performing Organization Address City/[facility]/ZIP Co de Phone Number [facility] [address] [place] [address] * RENAL FUNCTION PANEL (10/22/2023 12:14 PM EDT) BUN 16 6 - 20 mg/dL 10/23/2023 6:33 AM EDT [facility] CREATININE 0.9 0.5 - 1.0 mg/dL 10/23/2023 6:33 AM EDT [facility] EGFR 63 >=60 mL/min 10/23/2023 6:33 AM EDT LAB[facility] Comment:eGFR is calculated b ased on the CKD-EPI 2020 equation. SODIUM 144 135 - 146 mmol/L 10/23/2023 6:33 AM EDT [facility] POTASSIUM 4.5 3.5 - 5.1 mmol/L 10/23/2023 6:33 AM EDT [facility] CHLORIDE 106 98 - 107 mmol/L 10/23/2023 6:33 AM EDT [facility] CO2 25 22 - 32 mmol/L 10/23/2023 6:33 AM EDT [facility] ANION GAP 13 7 - 15 mmol/L 10/23/2023 6:33 AM EDT [facility] GLUCOSE 87 70 - 120 mg/dL 10/23/2023 6:33 AM EDT [facility] CALCIUM 9.4 8.4 - 10.2 mg/dL 10/23/2023 6:33 AM EDT [facility] Albumin 4.2 3.8 - 5.0 g/dL 10/23/2023 6:33 AM EDT [facility] Phosphorus 2.9 2.5 - 4.8 mg/dL 10/23/2023 6:33 AM EDT LAB[facility]ORY [facility] Blood Venous blood specimen / Unknown Venipuncture / Unknown 10/22/2023 12:14 PM EDT 10/22/2023 12:14 PM EDT Juan Torres MD LAB BLOOD ORDERABL ES [facility] [address] [place] [address] documented in this encounter Visit Diagnoses Diagnosis Stage 3a chronic kidney disease (HCC)- Primary Need for shingles vaccine Need for prophylactic vaccination and inoculation against other viral diseases Memory changes Memory loss Risk and functional assessment Screening for unspecified condition Hypothyroidism, unspecified type Elevated uric acid in blood Other abnormal blood chemistry Encounter for long-term (current) use of medications Encounter for long-term (current) use of other medications HTN, GOAL BELOW 140/90 Unspecified essential hypertension documented in this encounter Advance Directives Documents on File Type Date Recorded 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
--- OUTSIDE RECORDS SUMMARY | 2024-04-19 08:07 | External Medical Summary ---
Author Name Unknown Address Unknown Organization [id number]:[facility] [place] [facility] [address] [place] [address] Laboratory Report Ordering Provider Test Date Status CONY OLVERAGEREMIAS 10/26/2023 12:38:27 Final Normal: <30 mg/g creatinine< br/>High: 30-300 mg/g creatinine
Very High: >300 mg/g creatinine
Nephrotic: >2200 mg/g creatinine Observation Date Value Abnormality Reference (Units) Status Albumin, Urine 10/26/2023 12:38:27 <1.20 (mg/dL) Final Creatinine, Urine 10/26/2023 12:38:27 21 (mg/dL) Final ALBUMIN/CREATININE RATIO, HIDE 10/26/2023 12:38:27 Uninterpretable Albumin/Creatinine ratio due to very low albumin and creatinine values. <30 (mg/g Creat) Final Performing Location [facility] [place] [facility] [address] [place] [address]
--- OUTSIDE RECORDS SUMMARY | 2024-04-19 08:07 | External Medical Summary ---
Author Name Unknown Address Unknown Organization K01:[facility] [place] - [address] [place] [address] Laboratory Report Ordering Provider Test Date Status JEFRY MCNEILBENITO 03/01/2024 13:46:31 Final Observation Date Value Abnormality Reference (Units ) Status TSH 03/01/2024 13:46:31 3.26 0.27-4.20 (uIU/mL) Final Performing Location LABORATORY [facility] - [address] [place] [address]
--- OUTSIDE RECORDS SUMMARY | 2024-04-19 08:07 | External Medical Summary ---
Author Name Unknown Address Unknown Organization [id number]:[facility] [place] [facility] [address] [place] [address] Laboratory Report Ordering Provider Test Date Status HEAVEN OLVERA 10/22/2023 12:14:15 Final Observation Date Value Abnormality Reference (Units ) Status BUN 10/22/2023 12:14:15 16 6-20 (mg/dL) Final Creatinine 10/22/2023 12:14:15 0.9 0.5-1.0 (mg/dL) Final Glomerular filtration rate/1.73 sq M.predicted [Volume Rate/Area] in Serum, Plasma or Blood by Creatinine-based formula (CKD-EPI) 10/22/2023 12:14:15 63 >=60 (mL/min) Final eGFR is calculated based on the CKD-EPI 2020 equation. Sodium 10/22/2023 12:14:15 144 135-146 (m mol/L) Final Potassium 10/22/2023 12:14:15 4.5 3.5-5.1 (m mol/L) Final Cl 10/22/2023 12:14:15 106 98-107 (mm ol/L) Final CO2 10/22/2023 12:14:15 25 22-32 (mmo l/L) Final Anion gap 10/22/2023 12:14:15 13 7-15 (mmol /L) Final Glucose 10/22/2023 12:14:15 87 70-120 (mg /dL) Final Calcium 10/22/2023 12:14:15 9.4 8.4-10.2 ( mg/dL) Final Albumin 10/22/2023 12:14:15 4.2 3.8-5.0 (g /dL) Final Phosphate 10/22/2023 12:14:15 2.9 2.5-4.8 (m g/dL) Final [place]forming Location [facility] [place] [address] [place] [address]
--- OUTSIDE RECORDS SUMMARY | 2024-04-19 08:07 | External Medical Summary ---
Author Name Unknown Address Unknown Organization K01:[facility]ORY [facility] [place] - [address] [place] [id number] Laboratory Report Ordering Provider Test Date Status GINA MCNEIL 03/01/2024 13:46:31 Final Observation Date Value Abnormality Reference (Units ) Status BUN 03/01/2024 13:46:31 17 6-20 (mg/dL) Final Creatinine 03/01/2024 13:46:31 1.0 0.5-1.0 (mg/dL) Final Glomerular filtration rate/1.73 sq M.predicted [Volume Rate/Area] in Serum, Plasma or Blood by Creatinine-based formula (CKD-EPI) 03/01/2024 13:46:31 60 >=60 (mL/min) Final eGFR is calculated based on the CKD-EPI 2020 equation. Sodium 03/01/2024 13:46:31 143 135-146 (m mol/L) Final Potassium 03/01/2024 13:46:31 4.6 3.5-5.1 (m mol/L) Final Cl 03/01/2024 13:46:31 105 98-107 (mm ol/L) Final CO2 03/01/2024 13:46:31 26 22-32 (mmo l/L) Final Anion gap 03/01/2024 13:46:31 12 7-15 (mmol /L) Final Glucose 03/01/2024 13:46:31 85 70-120 (mg /dL) Final Calcium 03/01/2024 13:46:31 9.3 8.4-10.2 ( mg/dL) Final Performing Location LAB[facility]ATORY [facility] [place] - [address] [place] [address]
--- OUTSIDE RECORDS SUMMARY | 2024-04-19 08:07 | External Medical Summary | Summary of Care ---
Author Name Unknown Organization [facility] Address [address] [place] [address] Phone [phone] Care Team Providers Care Trench Pipe Layer Name Role Phone Juan Torres MD Primary Care Provider [phone]- [phone] Reason for Visit * Reason Comments Outpatient Testing Encounter Details Date Type Department Care Team (Late st Contact Info) Description 10/26/2023 12:40 PM EDT Laboratory Laboratory, [place] [address] [place] [address] [place] [address] [place] [address] Arrived Allergies Active Allergy Reactions Criticality Noted Date [...] Description 10/24/2024 2:40 PM EDT Office Visit [facility] [address] [place] [address] Juan Torres MD [address], [place] [id number] Health Maintenance Due Date Last Done Comments [...] Additional history exists CKD HGB USE SMARTSET 21365 10/21/202410/21, 10/20/2022, 10/15/2021, Additional history exists CKD PHOS USE SMARTSET 39182 10/21/202409/24, 10/20/2022, 10/15/2021, Additional history exists Depression [...] Documents on File Type Date Recorded Patient Faculty I On Call Medical Assistant Expl anation Advance Directives and Living Will 06/09/2012 ADVANCE DIRECTIVE MEDICAL POWER OF [employer] Advance Directives and Living Will 04/13/2008 LIVING WILL Care Teams Trench Pipe Layer Relationship Specialty Start Date End Date Juan Torres MD [address] [place] [address] PCP - General 04/20/02 documented as of this encounter
[2024-04-19] MEDS ORDERED: ENOXAPARIN INJ 40 MG/0.4 ML SYR SQ SCH (09:00)
[2024-04-19] MEDS: CEROVITE ADV FORMULA TAB PO SCH (09:00)
[2024-04-19] MEDS: ATENOLOL 50 MG TABLET ONE (09:01)
[2024-04-19] MEDS: ATENOLOL 25 MG TABLET PO SCH (09:01)
[2024-04-19] MEDS: LIDOCAINE 5% 1 PATCH TD STA (14:37)
--- NOTE | 2024-04-19 15:51 | Hospitalist Progress Note ---
Date of Service April 19, 2024 Assessment & Plan (1) Asymptomatic hypertensive urgency: Plan: Ms. Kilgore is an 83 year old woman with medical history significant for hypertension, hyperlipidemia, hypothyroidism, mood disorder, chronic lymphedema, gout who is admitted for weakness and influenza A infection. #Influenza A infection with encephalopathy isolation precautions continue tamiflu add mucinex add flutter valve and incentive nathen albuterol prn mentation at baseline per brother #elevated CK repeat in am small ivf bolus #LLE erythema, concern for cellulitis continue with doxycycline #Weakness of bilateral lower extremity #Ambulatory dysfunction CT head without acute intracranial findings doppler with out notable DVT , however study limited 2/2 habitus PT OT ordered, agreeable to rehab #Morbid obesity BMI 47.7, endorses increase sedentary habits, mobile within home but does not leave often -counseled on lifestyle modifications, discussed rehab #Hypothyroidism On Synthyroid #Chronic nonpitting Lower extremity edema States same as before On Lasix as needed #Hypertension On atenolol #CKD stage III Creatinine 0.9 Baseline DVT prophylaxis Lovenox Admission and Anticipated Discharge Date Admission Date: April 18, 2024 Subjective Patient reports feeling better since arrival, reports some buttock pain given bed and lack of mobility Reports some subjective wheezing and dry cough but otherwise states she feels well today patient agreeable to rehab Physical Exam Constitutional: WD/WN, vitals as above Respiratory: scatter expiratory wheezing with rhonchi Cardiovascular: RRR, no murmur, no edema Results & Data Results & Data Vital Signs (Past 12 Hours) Vital Signs Pulse Pulse Resp BP BP Pulse Ox O2 Del Method 04/19/24 14:33 86 18 112/61 94 Room Air 04/19/24 11:03 91 H 24 112/56 L 93 Room Air 04/19/24 10:53 99/59 L 04/19/24 09:00 76 18 122/66 95 Room Air 04/19/24 08:12 77 17 98/53 L 94 Room Air 04/19/24 07:13 77 04/19/24 07:12 77 18 120/77 93 Room Air 04/19/24 04:00 68 19 109/55 L 96 Room Air
[2024-04-19] MEDS: SODIUM CHLORIDE 0.9% 500 ML IV ONE (16:05)
[2024-04-19] MEDS: ALBUTEROL 0.083% NEBU SOLN 3 ML VIAL NEB PRN (17:55)
[2024-04-19] MEDS: guaiFENesin 600 MG TABCR PO SCH (21:30)
[2024-04-19] MEDS: DOXYCYCLINE HYCLATE 100 MG CAP PO SCH (21:30)
[2024-04-20 06:22] LABS: Hemoglobin 12.4 g/dl (12.0-16.0); Mean Corpuscular Hemoglobin 30.8 pg (25.0-34.0); Mean Corpuscular Hgb Conc 33.5 g/dL (32.0-36.0); Mean Corpuscular Volume 91.8 fL (80.0-100.0); Mean Platelet Volume 10.4 fL (9.4-12.4); Platelet Count 148 K/uL (130-400); RDW Coefficient of Variation 13.7 % (11.5-14.5); RDW Standard Deviation 46.7 fL (36.4-46.3); Red Blood Count 4.03 M/uL (4.20-5.40); White Blood Count 3.06 K/ul (4.8-10.8)
[2024-04-20 06:39] LABS: BUN Creatinine Ratio 26.7 (10-20); Calcium 7.5 mg/dl (8.6-10.3); Potassium 3.7 mmol/L (3.5-5.1)
[2024-04-20] MEDS: POLYETHYLENE (MIRALAX) 17 GM PACK PO SCH (07:57)
--- NOTE | 2024-04-20 17:15 | Hospitalist Progress Note ---
Date of Service April 20, 2024 Assessment & Plan (1) Asymptomatic hypertensive urgency: Plan: Ms. Kilgore is an 83 year old woman with medical history significant for hypertension, hyperlipidemia, hypothyroidism, mood disorder, chronic lymphedema, gout who is admitted for weakness and influenza A infection. Patient overall medically stable and with plans to dispo to snf #Influenza A infection with encephalopathy isolation precautions continue tamiflu continue mucinex continue flutter valve and incentive nathen albuterol prn mentation at baseline per brother #elevated CK repeat in am #LLE erythema, concern for cellulitis continue with doxycycline #Weakness of bilateral lower extremity #Ambulatory dysfunction CT head without acute intracranial findings doppler with out notable DVT , however study limited 2/2 habitus PT OT: SNF #Morbid obesity BMI 47.7, endorses increase sedentary habits, mobile within home but does not leave often -counseled on lifestyle modifications, discussed rehab #Hypothyroidism On Synthroid #Chronic nonpitting Lower extremity edema States same as before On Lasix as needed #Hypertension On atenolol #CKD stage III Creatinine 0.9 Baseline DVT prophylaxis Lovenox Admission and Anticipated Discharge Date Admission Date: April 18, 2024 Subjective NAEO Reports frustrating evening after moving from ed to upstairs but over symptom ni feels much improved Physical Exam Constitutional: WD/WN, vitals as above Respiratory: normal respiratory effort, lungs clear to auscultation Cardiovascular: RRR, no murmur, no edema Results & Data Results & Data Vital Signs (Past 12 Hours) Vital Signs Temp Pulse Pulse Resp BP Pulse Ox O2 Del Method 04/20/24 15:55 36.7 C 64 18 178/83 H 94 Room Air 04/20/24 15:12 73 04/20/24 14:18 90 04/20/24 11:31 36.6 C 63 19 149/79 H 92 Room Air 04/20/24 10:24 Room Air 04/20/24 08:00 36.7 C 75 18 174/77 H 91 Room Air 04/20/24 07:24 70 Laboratory Results Short CBC 04/20/24 Range/Units 05:52 WBC 3.06 L (4.8-10.8) K/ul Hgb 12.4 (12.0-16.0) g/dl Hct 37.0 (37.0-47.0) % Plt Count 148 (130-400) K/uL BMP 04/20/24 05:52 Sodium 138 Potassium 3.7 Chloride 108 H Carbon Dioxide 26 BUN 23 Creatinine 0.86 Glucose 89 Calcium 7.5 L Cardiac Enzymes 04/20/24 Range/Units 05:52 Total Creatine Kinase 219 H (26-192) U/L Medications Administered Home Medications Medication Instructions Recorded Confirmed Last Taken atenolol 25 mg tablet 25 mg PO DAILY 04/10/23 04/19/24 Unknown furosemide 20 mg tablet 20 mg PO DAILY PRN Edema 04/10/23 04/19/24 Unknown levothyroxine 175 mcg tablet 175 mcg PO QAM 04/10/23 04/19/24 Unknown potassium chloride 10 mEq 10 meq PO DAILY PRN WHEN TAKES 04/10/23 04/19/24 Unknown capsule,extended release LASIX vit C 250 mg-vit E 90 mg-zinc 40 1 tab PO AMHS 04/10/23 04/19/24 Unknown mg-copper 1 [id number] capsule (PreserVision AREDS-2) Active Medications Generic Name Dose Route Start Last Admin Trade Name Markq PRN Reason Stop Dose Admin Albuterol 2.5 mg 04/19/24 15:49 04/19/24 17:55 Albuterol 0.083% Nebu Soln 3 Ml Vial NEB 05/19/24 15:48 2.5 mg Q6H PRN Administration Shortness Of Breath Or Wheezing Protocol Atenolol 25 mg 04/19/24 09:00 04/20/24 07:57 Atenolol 25 Mg Tablet PO 05/19/24 08:59 25 mg DAILY HAZEL Administration Doxycycline Hyclate 100 mg 04/19/24 21:00 04/20/24 07:57 Doxycycline Hyclate 100 Mg Cap PO 04/26/24 20:59 100 mg BID HAZEL Administration Guaifenesin 600 mg 04/19/24 21:00 04/20/24 07:57 Guaifenesin 600 Mg Tabcr PO 05/19/24 20:59 600 mg Q12 HAZEL Administration Levothyroxine Sodium 175 mcg 04/19/24 06:30 04/20/24 05:35 Levothyroxine Sodium 175 Mcg Tablet PO 05/19/24 06:29 175 mcg DAILYBB HAZEL Administration Multivitamins/Minerals 1 tab 04/19/24 09:00 04/20/24 07:57 Cerovite Adv Formula Tab PO 05/19/24 08:59 1 tab DAILY HAZEL Administration Oseltamivir Phosphate 75 mg 04/19/24 02:00 04/20/24 07:56 Oseltamivir Phosphate 75 Mg Cap PO 04/24/24 01:59 75 mg BID HAZEL Administration Protocol Polyethylene Glycol 17 gm 04/20/24 09:00 04/20/24 07:57 Polyethylene (Miralax) 17 Gm Pack PO 05/20/24 08:59 Not Given DAILY HAZEL
[2024-04-21 07:23] LABS: Hematocrit (blood only) 38.9 % (37.0-47.0); Hemoglobin 13.3 g/dl (12.0-16.0); Mean Corpuscular Hgb Conc 34.2 g/dL (32.0-36.0); Mean Corpuscular Volume 90.7 fL (80.0-100.0); Mean Platelet Volume 10.2 fL (9.4-12.4); Platelet Count 156 K/uL (130-400); RDW Coefficient of Variation 13.7 % (11.5-14.5); RDW Standard Deviation 45.6 fL (36.4-46.3); Red Blood Count 4.29 M/uL (4.20-5.40)
[2024-04-21 07:46] LABS: BUN Creatinine Ratio 22.8 (10-20); Calcium 7.8 mg/dl (8.6-10.3); Potassium 3.5 mmol/L (3.5-5.1)
[2024-04-21] MEDS: amLODIPine BESYLATE 5 MG TAB PO SCH (09:16)
--- NOTE | 2024-04-21 16:51 | Hospitalist Progress Note ---
Date of Service April 21, 2024 Assessment & Plan (1) Asymptomatic hypertensive urgency: Plan: Ms. Kilgore is an 83 year old woman with medical history significant for hypertension, hyperlipidemia, hypothyroidism, mood disorder, chronic lymphedema, gout who is admitted for weakness and influenza A infection. Patient overall medically stable and with plans to dispo to snf No changes to plan #Influenza A infection with encephalopathy isolation precautions continue tamiflu continue mucinex continue flutter valve and incentive nathen albuterol prn mentation at baseline per brother #elevated CK resolved #LLE erythema, concern for cellulitis continue with doxycycline #Weakness of bilateral lower extremity #Ambulatory dysfunction CT head without acute intracranial findings doppler with out notable DVT , however study limited 2/2 habitus PT OT: SNF #Morbid obesity BMI 47.7, endorses increase sedentary habits, mobile within home but does not leave often -counseled on lifestyle modifications, discussed rehab #Hypothyroidism On Synthroid #Chronic nonpitting Lower extremity edema States same as before On Lasix as needed #Hypertension On atenolol #CKD stage III Creatinine 0.9 Baseline DVT prophylaxis Lovenox Admission and Anticipated Discharge Date Admission Date: April 18, 2024 Subjective Upset and ready for discharge Encouraged patient to stay and wait for rehab at this time, agreeable Physical Exam Constitutional: WD/WN, vitals as above Respiratory: normal respiratory effort, lungs clear to auscultation Cardiovascular: RRR, no murmur, no edema Results & Data Results & Data Vital Signs (Past 12 Hours) Vital Signs Temp Pulse Pulse Resp BP BP Pulse Ox 04/21/24 16:00 04/21/24 15:59 92 04/21/24 14:02 71 04/21/24 11:55 36.7 C 63 16 126/73 92 04/21/24 10:52 04/21/24 08:00 36.4 C L 64 18 178/74 H 92 04/21/24 07:13 85 Pulse Ox O2 Del Method O2 Del Method 04/21/24 16:00 93 Room Air 04/21/24 15:59 04/21/24 14:02 04/21/24 11:55 Room Air 04/21/24 10:52 Room Air 04/21/24 08:00 Room Air 04/21/24 07:13 Laboratory Results Short CBC 04/21/24 Range/Units 06:51 WBC 4.20 L (4.8-10.8) K/ul Hgb 13.3 (12.0-16.0) g/dl Hct 38.9 (37.0-47.0) % Plt Count 156 (130-400) K/uL [facility] 04/21/24 06:51 Sodium 140 Potassium 3.5 Chloride 107 Carbon Dioxide 27 BUN 18 Creatinine 0.79 Glucose 88 Calcium 7.8 L Cardiac Enzymes 04/21/24 Range/Units 06:51 Total Creatine Kinase 158 (26-192) U/L Medications Administered Home Medications Medication Instructions Recorded Confirmed Last Taken atenolol 25 mg tablet 25 mg PO DAILY 04/10/23 04/19/24 Unknown furosemide 20 mg tablet 20 mg PO DAILY PRN Edema 04/10/23 04/19/24 Unknown levothyroxine 175 mcg tablet 175 mcg PO QAM 04/10/23 04/19/24 Unknown potassium chloride 10 mEq 10 meq PO DAILY PRN WHEN TAKES 04/10/23 04/19/24 Unknown capsule,extended release LASIX vit C 250 mg-vit E 90 mg-zinc 40 1 tab PO AMHS 04/10/23 04/19/24 Unknown mg-copper 1 [id number] capsule (PreserVision AREDS-2) Active Medications Generic Name Dose Route Start Last Admin Trade Name Freq PRN Reason Stop Dose Admin Albuterol 2.5 mg 04/19/24 15:49 04/19/24 17:55 Albuterol 0.083% Nebu Soln 3 Ml Vial NEB 05/19/24 15:48 2.5 mg Q6H PRN Administration Shortness Of Breath Or Wheezing Protocol Amlodipine Besylate 5 mg 04/21/24 09:00 04/21/24 09:16 Amlodipine Besylate 5 Mg Tab PO 05/21/24 08:59 5 mg QAM HAZEL Administration Atenolol 25 mg 04/19/24 09:00 04/21/24 07:49 Atenolol 25 Mg Tablet PO 05/19/24 08:59 25 mg DAILY HAZEL Administration Doxycycline Hyclate 100 mg 04/19/24 21:00 04/21/24 07:50 Doxycycline Hyclate 100 Mg Cap PO 04/26/24 20:59 100 mg BID HAZEL Administration Guaifenesin 600 mg 04/19/24 21:00 04/21/24 07:49 Guaifenesin 600 Mg Tabcr PO 05/19/24 20:59 600 mg Q12 HAZEL Administration Levothyroxine Sodium 175 mcg 04/19/24 06:30 04/21/24 05:44 Levothyroxine Sodium 175 Mcg Tablet PO 05/19/24 06:29 175 mcg DAILYBB HAZEL Administration Multivitamins/Minerals 1 tab 04/19/24 09:00 04/21/24 07:49 Cerovite Adv Formula Tab PO 05/19/24 08:59 1 tab DAILY HAZEL Administration Oseltamivir Phosphate 75 mg 04/19/24 02:00 04/21/24 07:49 Oseltamivir Phosphate 75 Mg Cap PO 04/24/24 01:59 75 mg BID HAZEL Administration Protocol Polyethylene Glycol 17 gm 04/20/24 09:00 04/21/24 07:53 Polyethylene (Miralax) 17 Gm Pack PO 05/20/24 08:59 Not Given DAILY HAZEL
--- NOTE | 2024-04-21 23:20 | Electrocardiogram Report ---
Test Reason : Blood Pressure : */* mmHG Vent. Rate : 81 BPM Atrial Rate : 81 BPM P-R Int : 142 ms QRS Dur : 84 ms QT Int : 384 ms P-R-T Axes : 58 8 14 degrees QTcB Int : 446 ms Normal sinus rhythm with sinus arrhythmia Nonspecific ST and T wave abnormality Abnormal ECG When compared with ECG of 10-Apr-2023 19:30, No significant change was found Confirmed by Miguel Cardona ([id number]) on 04/21/2024 11:19:48 PM Referred By: REFERRED SELF Confirmed By: Miguel Cardona
[2024-04-22] MEDS: amLODIPine BESYLATE 5 MG TAB PO SCH (08:38)
[2024-04-22] MEDS: POTASSIUM CHLORIDE 20 MEQ/15 ML UDC PO SCH (08:39)
[2024-04-22 10:11] LABS: Hematocrit (blood only) 41.3 % (37.0-47.0); Hemoglobin 14.1 g/dl (12.0-16.0); Mean Corpuscular Hemoglobin 31.3 pg (25.0-34.0); Mean Corpuscular Hgb Conc 34.1 g/dL (32.0-36.0); Mean Corpuscular Volume 91.8 fL (80.0-100.0); Mean Platelet Volume 10.3 fL (9.4-12.4); Platelet Count 185 K/uL (130-400); RDW Coefficient of Variation 13.2 % (11.5-14.5); RDW Standard Deviation 44.9 fL (36.4-46.3); White Blood Count 4.05 K/ul (4.8-10.8)
[2024-04-22 10:32] LABS: BUN Creatinine Ratio 16.9 (10-20); Calcium 8.2 mg/dl (8.6-10.3); Creatinine Clr Calc Pharmacy 65.7 ml/min; Potassium 3.8 mmol/L (3.5-5.1)
--- NOTE | 2024-04-22 17:06 | Hospitalist Progress Note ---
Date of Service April 22, 2024 Assessment & Plan (1) Asymptomatic hypertensive urgency: Plan: Ms. Kilgore is an 83 year old woman with medical history significant for hypertension, hyperlipidemia, hypothyroidism, mood disorder, chronic lymphedema, gout who is admitted for weakness and influenza A infection. Patient overall medically stable and with plans to dispo to snf No changes to plan Patient cannot leave AMA, she does not demonstrate capacity at this time as she does not recall her reason for admission, her inability to stand for a period of time and function independently nor her conversations with this write for multiple days #agitation reorient as able olanzipine IM prn #Influenza A infection with encephalopathy isolation precautions continue tamiflu continue mucinex continue flutter valve and incentive nathen albuterol prn mentation at baseline per brother #elevated CK resolved #LLE erythema, concern for cellulitis continue with doxycycline #Weakness of bilateral lower extremity #Ambulatory dysfunction CT head without acute intracranial findings doppler with out notable DVT , however study limited 2/2 habitus PT OT: SNF #Morbid obesity BMI 47.7, endorses increase sedentary habits, mobile within home but does not l eave often -counseled on lifestyle modifications, discussed rehab #Hypothyroidism On Synthroid #Chronic nonpitting Lower extremity edema States same as before On Lasix as needed #Hypertension On atenolol #CKD stage III Creatinine 0.9 Baseline DVT prophylaxis Lovenox Admission and Anticipated Discharge Date Admission Date: April 18, 2024 Subjective NAEO pending rehab placement No new symptoms reported--still adamant for discharge home, but easily coaxed into rehab after reassurance Physical Exam Constitutional: WD/WN, vitals as above Respiratory: normal respiratory effort, lungs clear to auscultation Cardiovascular: RRR, no murmur, no edema Results & Data Results & Data Vital Signs (Past 12 Hours) Vital Signs Temp Pulse Pulse Resp BP Pulse Ox O2 Del Method 04/22/24 16:23 36.7 C 65 18 147/76 H 92 Room Air 04/22/24 12:00 61 04/22/24 12:00 Room Air 04/22/24 11:33 36.4 C L 74 18 151/81 H 94 Room Air 04/22/24 07:42 36.6 C 72 18 178/86 H 93 Room Air 04/22/24 07:27 61 Laboratory Results Short CBC 04/22/24 Range/Units 09:43 WBC 4.05 L (4.8-10.8) K/ul Hgb 14.1 (12.0-16.0) g/dl Hct 41.3 (37.0-47.0) % Plt Count 185 (130-400) K/uL BMP 04/22/24 09:43 Sodium 140 Potassium 3.8 Chloride 107 Carbon Dioxide 30 BUN 15 Creatinine 0.89 Glucose 119 H Calcium 8.2 L Medications Administered Home Medications Medication Instructions Recorded Confirmed Last Taken atenolol 25 mg tablet 25 mg PO DAILY 04/10/23 04/19/24 Unknown furosemide 20 mg tablet 20 mg PO DAILY PRN Edema 04/10/23 04/19/24 Unknown levothyroxine 175 mcg tablet 175 mcg PO QAM 04/10/23 04/19/24 Unknown potassium chloride 10 mEq 10 meq PO DAILY PRN WHEN TAKES 04/10/23 04/19/24 Unknown capsule,extended release LASIX vit C 250 mg-vit E 90 mg-zinc 40 1 tab PO AMHS 04/10/23 04/19/24 Unknown mg-copper 1 [id number] capsule (PreserVision AREDS-2) Active Medications Generic Name Dose Route Start Last Admin Trade Name Freq PRN Reason Stop Dose Admin Albuterol 2.5 mg 04/19/24 15:49 04/19/24 17:55 Albuterol 0.083% Nebu Soln 3 Ml Vial NEB 05/19/24 15:48 2.5 mg Q6H PRN Administration Shortness Of Breath Or Wheezing Protocol Amlodipine Besylate 10 mg 04/22/24 09:00 04/22/24 08:38 Amlodipine Besylate 5 Mg Tab PO 05/22/24 08:59 10 mg QAM HAZEL Administration Atenolol 25 mg 04/19/24 09:00 04/22/24 08:38 Atenolol 25 Mg Tablet PO 05/19/24 08:59 25 mg DAILY HAZEL Administration Doxycycline Hyclate 100 mg 04/19/24 21:00 04/22/24 08:38 Doxycycline Hyclate 100 Mg Cap PO 04/26/24 20:59 100 mg BID HAZEL Administration Guaifenesin 600 mg 04/19/24 21:00 04/22/24 08:38 Guaifenesin 600 Mg Tabcr PO 05/19/24 20:59 600 mg Q12 AHZEL Administration Levothyroxine Sodium 175 mcg 04/19/24 06:30 04/22/24 05:38 Levothyroxine Sodium 175 Mcg Tablet PO 05/19/24 06:29 175 mcg DAILYBB HAZEL Administration Multivitamins/Minerals 1 tab 04/19/24 09:00 04/22/24 08:38 Cerovite Adv Formula Tab PO 05/19/24 08:59 1 tab DAILY HAZEL Administration Oseltamivir Phosphate 75 mg 04/19/24 02:00 04/22/24 08:38 Oseltamivir Phosphate 75 Mg Cap PO 04/24/24 01:59 75 mg BID HAZEL Administration Protocol Polyethylene Glycol 17 gm 04/20/24 09:00 04/22/24 08:37 Polyethylene (Miralax) 17 Gm Pack PO 05/20/24 08:59 17 gm DAILY HAZEL Administration Potassium Chloride 40 meq 04/22/24 09:00 04/22/24 08:39 Potassium Chloride 20 Meq/15 Ml Udc PO 05/22/24 08:59 40 meq QAM HAZEL Administration
[2024-04-22] MEDS ORDERED: OLANZapine 10 MG/2.1 ML SDV IM PRN (17:19)
[2024-04-23] MEDS: INFLUENZA VACC TS2024-25(65y+)/PF (IIV3) 0.5mL Syr IM ONE (10:26)
--- NOTE | 2024-04-23 15:08 | Hospitalist Progress Note ---
Date of Service April 23, 2024 Assessment & Plan (1) Asymptomatic hypertensive urgency: Plan: Ms. Kilgore is an 83 year old woman with medical history significant for hypertension, hyperlipidemia, hypothyroidism, mood disorder, chronic lymphedema, gout who is admitted for weakness and influenza A infection. Patient overall medically stable and with plans to dispo to snf No changes to plan Patient cannot leave AMA, she does not demonstrate capacity at this time as she does not recall her reason for admission, her inability to stand for a period of time and function independently nor her conversations with this write for multiple days Plan to send [employer] form for concerns over driving given reported and observed cognitive impairment. #agitation reorient as able olanzipine IM prn #Influenza A infection with encephalopathy isolation precautions continue tamiflu continue mucinex continue flutter valve and incentive nathen albuterol prn mentation at baseline per brother #elevated CK resolved #LLE erythema, concern for cellulitis continue with doxycycline #Weakness of bilateral lower extremity #Ambulatory dysfunction CT head without acute intracranial findings doppler with out notable DVT , however study limited 2/2 habitus PT OT: SNF #Morbid obesity BMI 47.7, endorses increase sedentary habits, mobile within home but does not leave often -counseled on lifestyle modifications, discussed rehab #Hypothyroidism On Synthroid #Chronic nonpitting Lower extremity edema States same as before On Lasix as needed #Hypertension On atenolol #CKD stage III Creatinine 0.9 Baseline DVT prophylaxis Lovenox Admission and Anticipated Discharge Date Admission Date: April 18, 2024 Subjective More calm this am after noted agitation in evening Reports understanding that rehab is the next step to getting home denies any new concerns marisel at bedside, verbalized understanding of plan Physical Exam Constitutional: WD/WN, vitals as above Respiratory: normal respiratory effort, lungs clear to auscultation Cardiovascular: RRR chronic lymphedema Results & Data Results & Data Vital Signs (Past 12 Hours) Vital Signs Temp Pulse Pulse Resp BP Pulse Ox O2 Del Method 04/23/24 14:10 74 04/23/24 11:38 36.6 C 70 18 191/44 H 91 Room Air 04/23/24 10:28 Room Air 04/23/24 07:32 36.8 C 71 18 153/86 H 90 Room Air 04/23/24 07:06 67 Medications Administered Home Medications Medication Instructions Recorded Confirmed Last Taken atenolol 25 mg tablet 25 mg PO DAILY 04/10/23 04/19/24 Unknown furosemide 20 mg tablet 20 mg PO DAILY PRN Edema 04/10/23 04/19/24 Unknown levothyroxine 175 mcg tablet 175 mcg PO QAM 04/10/23 04/19/24 Unknown potassium chloride 10 mEq 10 meq PO DAILY PRN WHEN TAKES 04/10/23 04/19/24 Unknown capsule,extended release LASIX vit C 250 mg-vit E 90 mg-zinc 40 1 tab PO AMHS 04/10/23 04/19/24 Unknown mg-copper 1 [id number] capsule (PreserVision AREDS-2) Active Medications Generic Name Dose Route Start Last Admin Trade Name Freq PRN Reason Stop Dose Admin Albuterol 2.5 mg 04/19/24 15:49 04/19/24 17:55 Albuterol 0.083% Nebu Soln 3 Ml Vial NEB 05/19/24 15:48 2.5 mg Q6H PRN Administration Shortness Of Breath Or Wheezing Protocol Amlodipine Besylate 10 mg 04/22/24 09:00 04/23/24 08:23 Amlodipine Besylate 5 Mg Tab PO 05/22/24 08:59 10 mg QAM HAZEL Administration Atenolol 25 mg 04/19/24 09:00 04/23/24 08:23 Atenolol 25 Mg Tablet PO 05/19/24 08:59 25 mg DAILY HAZEL Administration Doxycycline Hyclate 100 mg 04/19/24 21:00 04/23/24 08:23 Doxycycline Hyclate 100 Mg Cap PO 04/26/24 20:59 100 mg BID AHZEL Administration Guaifenesin 600 mg 04/19/24 21:00 04/23/24 08:23 Guaifenesin 600 Mg Tabcr PO 05/19/24 20:59 600 mg Q12 HAZEL Administration Levothyroxine Sodium 175 mcg 04/19/24 06:30 04/23/24 05:40 Levothyroxine Sodium 175 Mcg Tablet PO 05/19/24 06:29 175 mcg DAILYBB HAZEL Administration Multivitamins/Minerals 1 tab 04/19/24 09:00 04/23/24 08:23 Cerovite Adv Formula Tab PO 05/19/24 08:59 1 tab DAILY HAZEL Administration Oseltamivir Phosphate 75 mg 04/19/24 02:00 04/23/24 08:23 Oseltamivir Phosphate 75 Mg Cap PO 04/24/24 01:59 75 mg BID HAZEL Administration Protocol Polyethylene Glycol 17 gm 04/20/24 09:00 04/23/24 07:40 Polyethylene (Miralax) 17 Gm Pack PO 05/20/24 08:59 Not Given DAILY HAZEL Potassium Chloride 40 meq 04/22/24 09:00 04/23/24 08:24 Potassium Chloride 20 Meq/15 Ml Udc PO 05/22/24 08:59 40 meq QAM HAZEL Administration
[2024-04-24 10:00] LABS: Hematocrit (blood only) 40.3 % (37.0-47.0); Hemoglobin 13.6 g/dl (12.0-16.0); Mean Corpuscular Hemoglobin 31.1 pg (25.0-34.0); Mean Corpuscular Hgb Conc 33.7 g/dL (32.0-36.0); Mean Corpuscular Volume 92.2 fL (80.0-100.0); Mean Platelet Volume 10.3 fL (9.4-12.4); Platelet Count 228 K/uL (130-400); RDW Coefficient of Variation 13.2 % (11.5-14.5); RDW Standard Deviation 45.1 fL (36.4-46.3); Red Blood Count 4.37 M/uL (4.20-5.40); White Blood Count 5.73 K/ul (4.8-10.8)
[2024-04-24 10:12] LABS: BUN Creatinine Ratio 15.1 (10-20); Creatinine Clr Calc Pharmacy 62.8 ml/min; Potassium 4.4 mmol/L (3.5-5.1)
--- NOTE | 2024-04-24 14:40 | Hospitalist Progress Note ---
Date of Service April 24, 2024 Assessment & Plan (1) Asymptomatic hypertensive urgency: Plan: Ms. Kilgore is an 83 year old woman with medical history significant for hypertension, hyperlipidemia, hypothyroidism, mood disorder, chronic lymphedema, gout who is admitted for weakness and influenza A infection. Patient overall medically stable and with plans to dispo to snf No changes to plan Patient cannot leave AMA, she does not demonstrate capacity at this time as she does not recall her reason for admission, her inability to stand for a period of time and function independently nor her conversations with this write for multiple days Sent [employer] form for concerns over driving given reported and observed cognitive impairment. Pending placement at this time. No #agitation reorient as able olanzipine IM prn #Influenza A infection with encephalopathy isolation precautions completed tamiflu continue mucinex continue flutter valve and incentive nathen albuterol prn mentation at baseline per brother #elevated CK resolved #LLE erythema, concern for cellulitis completed doxy #Weakness of bilateral lower extremity #Ambulatory dysfunction CT head without acute intracranial findings doppler with out notable DVT , however study limited 2/2 habitus PT OT: SNF #Morbid obesity BMI 47.7, endorses increase sedentary habits, mobile within home but does not leave often -counseled on lifestyle modifications, discussed rehab #Hypothyroidism On Synthroid #Chronic nonpitting Lower extremity edema States same as before On Lasix as needed #Hypertension On atenolol #CKD stage III Creatinine 0.9 Baseline DVT prophylaxis Lovenox Admission and Anticipated Discharge Date Admission Date: April 18, 2024 Subjective NAEO reports understanding that she is awaiting rehab and is more calm today Physical Exam Constitutional: WD/WN, vitals as above Respiratory: normal respiratory effort, lungs clear to auscultation Cardiovascular: RRR, no murmur, no edema Gastrointestinal (Abdomen): normal bowel sounds, soft, nontender, no hepatosplenomegaly Results & Data Results & Data Vital Signs (Past 12 Hours) Vital Signs Temp Pulse Pulse Resp BP Pulse Ox O2 Del Method 04/24/24 11:29 36.4 C L 69 18 125/58 L 91 Room Air 04/24/24 08:00 Room Air 04/24/24 07:27 36.7 C 69 18 158/79 H 95 Room Air 04/24/24 07:00 59 L 04/24/24 02:54 36.7 C 70 18 150/70 H 95 Room Air Laboratory Results Short CBC 04/24/24 Range/Units 09:32 WBC 5.73 (4.8-10.8) K/ul Hgb 13.6 (12.0-16.0) g/dl Hct 40.3 (37.0-47.0) % Plt Count 228 (130-400) K/uL BMP 04/24/24 09:32 Sodium 140 Potassium 4.4 Chloride 106 Carbon Dioxide 31 BUN 14 Creatinine 0.93 Glucose 128 H Calcium 9.0 Medications Administered Home Medications Medication Instructions Recorded Confirmed Last Taken atenolol 25 mg tablet 25 mg PO DAILY 04/10/23 04/19/24 Unknown furosemide 20 mg tablet 20 mg PO DAILY PRN Edema 04/10/23 04/19/24 Unknown levothyroxine 175 mcg tablet 175 mcg PO QAM 04/10/23 04/19/24 Unknown potassium chloride 10 mEq 10 meq PO DAILY PRN WHEN TAKES 04/10/23 04/19/24 Unknown capsule,extended release LASIX vit C 250 mg-vit E 90 mg-zinc 40 1 tab PO AMHS 04/10/23 04/19/24 Unknown mg-copper 1 [id number] capsule (PreserVision AREDS-2) Active Medications Generic Name Dose Route Start Last Admin Trade Name Freq PRN Reason Stop Dose Admin Albuterol 2.5 mg 04/19/24 15:49 04/19/24 17:55 Albuterol 0.083% Nebu Soln 3 Ml Vial NEB 05/19/24 15:48 2.5 mg Q6H PRN Administration Shortness Of Breath Or Wheezing Protocol Amlodipine Besylate 10 mg 04/22/24 09:00 04/24/24 09:32 Amlodipine Besylate 5 Mg Tab PO 05/22/24 08:59 10 mg QAM HAZEL Administration Atenolol 25 mg 04/19/24 09:00 04/24/24 09:31 Atenolol 25 Mg Tablet PO 05/19/24 08:59 25 mg DAILY HAZEL Administration Guaifenesin 600 mg 04/19/24 21:00 04/24/24 09:31 Guaifenesin 600 Mg Tabcr PO 05/19/24 20:59 600 mg Q12 HAZEL Administration Levothyroxine Sodium 175 mcg 04/19/24 06:30 04/24/24 06:10 Levothyroxine Sodium 175 Mcg Tablet PO 05/19/24 06:29 175 mcg DAILYBB HAZEL Administration Multivitamins/Minerals 1 tab 04/19/24 09:00 04/24/24 09:31 Cerovite Adv Formula Tab PO 05/19/24 08:59 1 tab DAILY HAZEL Administration Polyethylene Glycol 17 gm 04/20/24 09:00 04/24/24 09:32 Polyethylene (Miralax) 17 Gm Pack PO 05/20/24 08:59 17 gm DAILY HAZEL Administration Potassium Chloride 40 meq 04/22/24 09:00 04/24/24 09:32 Potassium Chloride 20 Meq/15 Ml Udc PO 05/22/24 08:59 40 meq QAM HAZEL Administration
--- NOTE | 2024-04-25 16:38 | Hospitalist Progress Note ---
Date of Service April 25, 2024 Assessment & Plan (1) Asymptomatic hypertensive urgency: Plan: Ms. Kilgore is an 83 year old woman with medical history significant for hypertension, hyperlipidemia, hypothyroidism, mood disorder, chronic lymphedema, gout who is admitted for weakness and influenza A infection. Patient overall medically stable and with plans to dispo to snf No changes to plan Patient cannot leave AMA, she does not demonstrate capacity at this time as she does not recall her reason for admission, her inability to stand for a period of time and function independently nor her conversations with this write for multiple days Sent [employer] form for concerns over driving given reported and observed cognitive impairment. Pending placement at this time. No changes to plan #agitation resolved reorient as able olanzipine IM prn #Influenza A infection with encephalopathy isolation precautions completed tamiflu continue mucinex continue flutter valve and incentive nathen albuterol prn mentation at baseline per brother #elevated CK resolved #LLE erythema, concern for cellulitis completed doxy #Weakness of bilateral lower extremity #Ambulatory dysfunction CT head without acute intracranial findings doppler with out notable DVT , however study limited 2/2 habitus PT OT: SNF #Morbid obesity BMI 47.7, endorses increase sedentary habits, mobile within home but does not leave often -counseled on lifestyle modifications, discussed rehab #Hypothyroidism On Synthroid #Chronic nonpitting Lower extremity edema States same as before On Lasix as needed #Hypertension On atenolol #CKD stage III Creatinine 0.9 Baseline DVT prophylaxis Lovenox Admission and Anticipated Discharge Date Admission Date: April 18, 2024 Subjective NAEO Physical Exam Constitutional: WD/WN, vitals as above Respiratory: normal respiratory effort, lungs clear to auscultation Cardiovascular: RRR, no murmur, no edema Gastrointestinal (Abdomen): normal bowel sounds, soft, nontender, no hepatosplenomegaly Results & Data Results & Data Vital Signs (Past 12 Hours) Vital Signs Temp Pulse Pulse Resp BP Pulse Ox O2 Del Method 04/25/24 16:06 36.7 C 68 16 132/63 94 Room Air 04/25/24 11:18 36.6 C 67 18 119/63 94 Room Air 04/25/24 09:31 78 04/25/24 07:28 Room Air 04/25/24 07:19 36.5 C 64 16 163/71 H 97 Room Air Laboratory Results Home Medications Medication Instructions Recorded Confirmed Last Taken atenolol 25 mg tablet 25 mg PO DAILY 04/10/23 04/19/24 Unknown furosemide 20 mg tablet 20 mg PO DAILY PRN Edema 04/10/23 04/19/24 Unknown levothyroxine 175 mcg tablet 175 mcg PO QAM 04/10/23 04/19/24 Unknown potassium chloride 10 mEq 10 meq PO DAILY PRN WHEN TAKES 04/10/23 04/19/24 Unknown capsule,extended release LASIX vit C 250 mg-vit E 90 mg-zinc 40 1 tab PO AMHS 04/10/23 04/19/24 Unknown mg-copper 1 [id number] capsule (PreserVision AREDS-2) Active Medications Generic Name Dose Route Start Last Admin Trade Name Freq PRN Reason Stop Dose Admin Albuterol 2.5 mg 04/19/24 15:49 04/19/24 17:55 Albuterol 0.083% Nebu Soln 3 Ml Vial NEB 05/19/24 15:48 2.5 mg Q6H PRN Administration Shortness Of Breath Or Wheezing Protocol Amlodipine Besylate 10 mg 04/22/24 09:00 04/25/24 08:06 Amlodipine Besylate 5 Mg Tab PO 05/22/24 08:59 10 mg QAM HAZEL Administration Atenolol 25 mg 04/19/24 09:00 04/25/24 08:06 Atenolol 25 Mg Tablet PO 05/19/24 08:59 25 mg DAILY HAZEL Administration Guaifenesin 600 mg 04/19/24 21:00 04/25/24 08:06 Guaifenesin 600 Mg Tabcr PO 05/19/24 20:59 600 mg Q12 HAZEL Administration Levothyroxine Sodium 175 mcg 04/19/24 06:30 04/25/24 06:26 Levothyroxine Sodium 175 Mcg Tablet PO 05/19/24 06:29 175 mcg DAILYBB HAZEL Administration Multivitamins/Minerals 1 tab 04/19/24 09:00 04/25/24 08:06 Cerovite Adv Formula Tab PO 05/19/24 08:59 1 tab DAILY HAZEL Administration Polyethylene Glycol 17 gm 04/20/24 09:00 04/25/24 08:06 Polyethylene (Miralax) 17 Gm Pack PO 05/20/24 08:59 17 gm DAILY HAZEL Administration Potassium Chloride 40 meq 04/22/24 09:00 04/25/24 08:06 Potassium Chloride 20 Meq/15 Ml Udc PO 05/22/24 08:59 40 meq QAM HAZEL Administration
--- NOTE | 2024-04-26 14:32 | Hospitalist Progress Note ---
Date of Service April 26, 2024 Assessment & Plan (1) Asymptomatic hypertensive urgency: Plan: Ms. Kilgore is an 83 year old woman with medical history significant for hypertension, hyperlipidemia, hypothyroidism, mood disorder, chronic lymphedema, gout who is admitted for weakness and influenza A infection. Patient overall medically stable and with plans to dispo to snf No changes to plan Patient cannot leave AMA, she does not demonstrate capacity at this time as she does not recall her reason for admission, her inability to stand for a period of time and function independently nor her conversations with this write for multiple days Sent [employer] form for concerns over driving given reported and observed cognitive impairment. Pending placement at this time. No changes to plan #agitation resolved reorient as able olanzipine IM prn #Influenza A infection with encephalopathy isolation precautions completed tamiflu continue mucinex continue flutter valve and incentive nathen albuterol prn mentation at baseline per brother #elevated CK resolved #LLE erythema, concern for cellulitis completed doxy #Weakness of bilateral lower extremity #Ambulatory dysfunction CT head without acute intracranial findings doppler with out notable DVT , however study limited 2/2 habitus PT OT: SNF #Morbid obesity BMI 47.7, endorses increase sedentary habits, mobile within home but does not leave often -counseled on lifestyle modifications, discussed rehab #Hypothyroidism On Synthroid #Chronic nonpitting Lower extremity edema States same as before On Lasix as needed #Hypertension On atenolol #CKD stage III Creatinine 0.9 Baseline DVT prophylaxis Lovenox Admission and Anticipated Discharge Date Admission Date: April 18, 2024 Subjective NAEO Physical Exam Constitutional: WD/WN, vitals as above Respiratory: normal respiratory effort, lungs clear to auscultation Cardiovascular: RRR, no murmur, no edema Results & Data Results & Data Vital Signs (Past 12 Hours) Vital Signs Temp Pulse Resp BP Pulse Ox O2 Del Method 04/26/24 11:42 36.7 C 71 18 111/65 95 Room Air 04/26/24 07:50 Room Air 04/26/24 07:27 36.6 C 72 18 129/61 95 Room Air
--- NOTE | 2024-04-27 16:02 | Hospitalist Progress Note ---
Date of Service April 27, 2024 Assessment & Plan (1) Asymptomatic hypertensive urgency: Plan: Ms. Kilgore is an 83 year old woman with medical history significant for hypertension, hyperlipidemia, hypothyroidism, mood disorder, chronic lymphedema, gout who is admitted for weakness and influenza A infection. Patient overall medically stable and with plans to dispo to snf No changes to plan Patient cannot leave AMA, she does not demonstrate capacity at this time as she does not recall her reason for admission, her inability to stand for a period of time and function independently nor her conversations with this write for multiple days Sent [employer] form for concerns over driving given reported and observed cognitive impairment. Pending placement at this time. No changes to plan Plan for discharge tomorrow at 1030 am #agitation resolved reorient as able #Influenza A infection with encephalopathy isolation precautions completed tamiflu continue mucinex continue flutter valve and incentive nathen albuterol prn mentation at baseline per brother #elevated CK resolved #LLE erythema, concern for cellulitis completed doxy #Weakness of bilateral lower extremity #Ambulatory dysfunction CT head without acute intracranial findings doppler with out notable DVT , however study limited 2/2 habitus PT OT: SNF #Morbid obesity BMI 47.7, endorses increase sedentary habits, mobile within home but does not leave often -counseled on lifestyle modifications, discussed rehab #Hypothyroidism On Synthroid #Chronic nonpitting Lower extremity edema States same as before On Lasix as needed #Hypertension On atenolol #CKD stage III Creatinine 0.9 Baseline DVT prophylaxis Lovenox Admission and Anticipated Discharge Date Admission Date: April 18, 2024 Subjective NAEO Physical Exam Constitutional: WD/WN, vitals as above Respiratory: normal respiratory effort, lungs clear to auscultation Cardiovascular: RRR, no murmur, no edema Gastrointestinal (Abdomen): normal bowel sounds, soft, nontender, no hepatosplenomegaly Results & Data Results & Data Vital Signs (Past 12 Hours) Vital Signs Temp Pulse Resp BP Pulse Ox O2 Del Method 04/27/24 08:11 36.6 C 78 20 118/67 93 Room Air 04/27/24 07:50 Room Air Medications Administered Home Medications Medication Instructions Recorded Confirmed Last Taken atenolol 25 mg tablet 25 mg PO DAILY 04/10/23 04/19/24 Unknown furosemide 20 mg tablet 20 mg PO DAILY PRN Edema 04/10/23 04/19/24 Unknown levothyroxine 175 mcg tablet 175 mcg PO QAM 04/10/23 04/19/24 Unknown potassium chloride 10 mEq 10 meq PO DAILY PRN WHEN TAKES 04/10/23 04/19/24 Unknown capsule,extended release LASIX vit C 250 mg-vit E 90 mg-zinc 40 1 tab PO AMHS 04/10/23 04/19/24 Unknown mg-copper 1 [id number] capsule (PreserVision AREDS-2) Active Medications Generic Name Dose Route Start Last Admin Trade Name Derek PRN Reason Stop Dose Admin Albuterol 2.5 mg 04/19/24 15:49 04/19/24 17:55 Albuterol 0.083% Nebu Soln 3 Ml Vial NEB 05/19/24 15:48 2.5 mg Q6H PRN Administration Shortness Of Breath Or Wheezing Protocol Amlodipine Besylate 10 mg 04/22/24 09:00 04/27/24 07:54 Amlodipine Besylate 5 Mg Tab PO 05/22/24 08:59 10 mg QAM HAZEL Administration Atenolol 25 mg 04/19/24 09:00 04/27/24 07:55 Atenolol 25 Mg Tablet PO 05/19/24 08:59 25 mg DAILY HAZEL Administration Guaifenesin 600 mg 04/19/24 21:00 04/27/24 07:54 Guaifenesin 600 Mg Tabcr PO 05/19/24 20:59 600 mg Q12 HAZEL Administration Levothyroxine Sodium 175 mcg 04/19/24 06:30 04/27/24 04:33 Levothyroxine Sodium 175 Mcg Tablet PO 05/19/24 06:29 175 mcg DAILYBB HAZEL Administration Multivitamins/Minerals 1 tab 04/19/24 09:00 04/27/24 07:55 Cerovite Adv Formula Tab PO 05/19/24 08:59 1 tab DAILY HAZEL Administration Polyethylene Glycol 17 gm 04/20/24 09:00 04/27/24 07:54 Polyethylene (Miralax) 17 Gm Pack PO 05/20/24 08:59 17 gm DAILY HAZEL Administration Potassium Chloride 40 meq 04/22/24 09:00 04/27/24 07:54 Potassium Chloride 20 Meq/15 Ml Udc PO 05/22/24 08:59 40 meq QAM HAZEL Administration
[2024-04-27 22:02] VITALS: RESP 18
[2024-04-28 07:19] VITALS: BP 135/71; PULSE 64; TEMP 97.3; O2SAT 97
--- NOTE | 2024-04-28 12:49 | Discharge Summary ---
Date of Service April 28, 2024 Admission HPI Per Admitting Provider History obtained from patient, family, and records. Limited history from patient secondary to confusion. Medical history significant for hypertension, hyperlipidemia, hypothyroidism, mood disorder, chronic lymphedema, gout. Last confinement last year for generalized weakness and ambulatory dysfunction. Memory concerns noted during confinement. Patient family did not hear from patient yesterday. They found patient on the floor of her home. Patient does not recall how she fell down. Denies headache symptoms. Denies chest pain, SOB. New raspy cough symptoms. New bilateral leg redness as per patient. Patient brought to ER for evaluation. Family feels patient unsafe to be at home by herself at this point.. SBP 180s upon arrival at the ER. 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 Exam Per Admitting Provider GENERAL: Slightly restless and uncomfortable, morbidly obese, raspy breathing SKIN: Normal color, warm HEENT: Eldred palpebral conjunctivae, no ptosis, dry buccal mucosa NECK : Supple, short neck, no tenderness CHEST : Decreased breath sounds with rhonchi, no tenderness HEART : RRR, no obvious murmurs ABDOMEN: Some distention, nontender EXTREMITIES : Bilateral LE swelling with minimal tenderness, mild LE erythema, palpable pulses, no other conspicuous deformities noted NEUROLOGIC : Disoriented, no facial asymmetry, gait and stance not assessed Principal Diagnosis influenza A Discharge Exam Constitutional: WD/WN, vitals as above Respiratory: normal respiratory effort, lungs clear to auscultation Cardiovascular: RRR, no murmur, no edema Gastrointestinal (Abdomen): normal bowel sounds, soft, nontender, no hepatosplenomegaly Discharge Data Allergies Allergy/AdvReac Type Severity Reaction Status Date / Time ROLAND Inhibitors Allergy Unknown UNKNOWN Verified 04/19/24 00:02 Penicillins Allergy Unknown UNKNOWN Verified 04/19/24 00:02 Ymphjad-TSB-AqI Reductase Allergy Unknown UNKNOWN Verified 04/19/24 00:02 Inhibitor [Aihdkhy-Bmk-Ckd Reductase Inhibitor] Consultations 04/18/24 23:29 ED Decision to Admit Stat Ordered Studies 04/18/24 21:36 CT head/brain wo con Stat 04/19/24 00:08 US venous doppler LE BI Stat Hospital Course (1) Asymptomatic hypertensive urgency: Per prior attending w/ addendum: Ms. Kilgore is an 83 year old woman with medical history significant for hypertension, hyperlipidemia, hypothyroidism, mood disorder, chronic lymphedema, gout who is admitted for weakness and influenza A infection. Patient overall medically stable and with plans to dispo to snf No changes to plan Patient cannot leave AMA, she does not demonstrate capacity at this time as she does not recall her reason for admission, her inability to stand for a period of time and function independently nor her conversations with this write for gerda fowler Sent [employer] form for concerns over driving given reported and observed cognitive impairment. Pending placement at this time. No changes to plan Plan for discharge tomorrow at 1030 am #agitation resolved reorient as able #Influenza A infection with encephalopathy isolation precautions completed tamiflu continue mucinex continue flutter valve and incentive nathen albuterol prn mentation at baseline per brother #elevated CK resolved #LLE erythema, concern for cellulitis completed doxy #Weakness of bilateral lower extremity #Ambulatory dysfunction CT head without acute intracranial findings doppler with out notable DVT , however study limited 2/2 habitus PT OT: SNF #Morbid obesity BMI 47.7, endorses increase sedentary habits, mobile within home but does not leave often -counseled on lifestyle modifications, discussed rehab #Hypothyroidism On Synthroid #Chronic nonpitting Lower extremity edema States same as before On Lasix as needed #Hypertension On atenolol #CKD stage III Creatinine 0.9 Baseline DVT prophylaxis Lovenox Addendum 04/28/2024: Patient was seen and examined at bedside as a follow-up of viral upper respiratory tract infection and agitation. Patient is calm, alert and awake, oriented x 1, on RA. Per RN no new acute event overnight. Patient is hemodynamically stable. Patient is being discharged to SNF. Home Health Attestation I certify that this patient is under my care and that I, or a physicians assistant research scientist working with me, had a face to-face encounter that meets the [id number] encounter requirements with this patient. The encounter with the patient was in whole, or in part, for the following medical condition, which is the primary reason for home health care (list medical condition): I certify that, based on my findings, the following services are medically necessary home health services: My clinical findings support the need for the above services because: Further, I certify that my clinical findings support that this patient is homebound (i.e. absences from home require considerable and taxing effort and are for medical reasons or denominational services or infrequently or of short duration when for other reasons) because: Certification for Home Health Services: Based on the above findings, I certify that this patient is confined to the home and needs intermittent jail care, physical therapy and/or speech therapy or continues to need occupational therapy. The patient is under my care, and I have initiated the establishment of the plan of care. This patient will be followed by a physician who will periodically review the plan of care. Total Time Total Time Spent Total Time Spent (In Minutes): 35 Discharge Plan Discharge Items Patient Disposition: Transfer [facility] Reason For Visit: ENCEPHALOPATHY Discharge Diagnosis: influenza A Activity: Resume your previous activity Non-emergency contact: Primary Care Provider Call non-emergency contact if: you have any medication questions and your symptoms worsen Follow-up/Referrals: Juan Torres MD [Primary Care Provider] - Diet: Carb Consistent or DM2 Addtl Attending Provider Instructions: You were admitted for weakness and confusion. You were found to have Influenza and high blood pressure. You completed a course of Tamiflu and antibiotics. You will start on amlodipine 10mg for blood pressure daily You can continue your home medications as previously prescribed. Pending Studies at Discharge: No Stand-Alone Forms: My [facility] [employer], Smoking Cessation Skilled Items Patient informed of condition?: No DNR: Yes Discharge Level of Care: Skilled Communicable Disease: No Discharge Prognosis: Stable Lines: None Urinary Catheter: No Medications and DC Order Prescriptions: New amlodipine [Norvasc] 5 mg Tablet 10 mg PO QAM 30 Days Qty: 60 0RF Continued atenolol 25 mg tablet 25 mg PO DAILY furosemide 20 mg tablet 20 mg PO DAILY PRN (Reason: Edema) Rx Instructions: for prn edema levothyroxine 175 mcg tablet 175 mcg PO QAM potassium chloride 10 mEq capsule, extended release 10 meq PO DAILY PRN (Reason: WHEN TAKES LASIX) Rx Instructions: TAKE THIS MED WHEN TAKING PRN FUROSEMIDE PreserVision AREDS-2 250-90-40-1 mg Capsule 1 tab PO [facility] Discharge Orders: Discharge Order (Routine); Ordered 04/28/24 Ordered By: Linda Wen Admission Data Admit Date/Time: 04/18/24 23:47 Attending Provider: Linda Wen Admit Provider: Zach Rodriguez Primary Care Provider: Juan Torres Other Providers: Zach Rodriguez; [place],[facility], [place]; [facility]; [facility]; IRB Approved Study,[place] Other Interventions: Discharge Summary Assessment (RN) Last Done: 04/28/24 10:04
== END 2024-04-28 10:41 | DRG 866 ==
LOC: ED 21:21 → SUATTDRO 23:47 → EDINP 23:47 → OBSVTOIN 23:47 → INTOOBSV 23:47 → 2W 04-19 00:56 → 3W 04-27 22:34
DX: L03.115 Cellulitis of right lower limb; E78.5 Hyperlipidemia, unspecified; R79.89 Other specified abnormal findings of blood chemistry; E66.01 Morbid (severe) obesity due to excess calories; F39 Unspecified mood [affective] disorder; R94.4 Abnormal results of kidney function studies; F03.911 Unspecified dementia, unspecified severity, with agitation; M62.82 Rhabdomyolysis; I89.0 Lymphedema, not elsewhere classified; I16.0 Hypertensive urgency; Z88.0 Allergy status to penicillin; L03.116 Cellulitis of left lower limb; I12.9 Hypertensive chronic kidney disease with stage 1 through stage 4 chronic kidney disease, or unspecified chronic kidney disease; E03.9 Hypothyroidism, unspecified; Z68.42 Body mass index [BMI] 45.0-49.9, adult; Z79.890 Hormone replacement therapy; J10.81 Influenza due to other identified influenza virus with encephalopathy; N18.30 Chronic kidney disease, stage 3 unspecified